=== PATIENT | female | born 1960 | race Hispanic/Latino ===

== ENCOUNTER 2024-04-02 16:32 | Emergency (ER) | payer OTHER ==
[~2024-04-02] VITALS: Ht 157.5 cm; Wt 61.2 kg
[~2024-04-02 16:32] MED LIST: AMOX-426 PO; ATOR40TA71 PO; CHOL125C7 PO; ESCI20TA38 PO; FAMO-136 PO; FOLI1 PO; HYDR25SU38 RC; METF-446 PO; OLME5TAB29 PO
[2024-04-02 17:21] LABS: BASOPHILS # (AUTO) 0.01 K/uL (0.00-0.20); BASOPHILS % (AUTO) 0.2 % (0.0-5.0); HEMATOCRIT 25.6 % (36-48); IMMATURE GRANULOCYTE ABSOLUTE 0.07 K/uL (0-1); LYMPHOCYTES # (AUTO) 0.8 K/uL (1.0-4.8); LYMPHOCYTES % (AUTO) 11.9 % (21.0-51.0); MEAN CORPUSCULAR HEMOGLOBIN 23.4 pg (27.0-33.0); MEAN CORPUSCULAR HGB CONC 30.5 g/dL (32.0-36.0); MEAN CORPUSCULAR VOLUME 76.9 fL (79-99); MONOCYTES # (AUTO) 0.1 K/uL (0.1-1.0); MONOCYTES % (AUTO) 2.1 % (3.0-13.0); NEUTROPHILS # (AUTO) 5.4 K/uL (1.8-7.7); NEUTROPHILS % (AUTO) 84.7 % (40.0-77.0); NUCLEATED RED BLOOD CELLS 0.5 % (0.0-0.19); PLATELET COUNT (AUTO) 403 K/uL (130-400); RED BLOOD CELL COUNT(AUTO) 3.33 MIL/uL (4.00-5.50); WHITE BLOOD COUNT (AUTO) 6.3 K/uL (4.8-10.8)
[2024-04-02 17:30] LABS: POTASSIUM 4.2 mmol/L (3.5-5.1)
[2024-04-02 17:34] LABS: ALBUMIN 3.9 g/dL (3.5-5.0); BILIRUBIN,TOTAL 0.2 mg/dL (0.2-1.0); TOTAL PROTEIN, SERUM 7.3 g/dL (6.0-8.3)
[2024-04-02] MEDS: 0.9%NACL 1000ML 1,000 ML IV ONE (19:34)
[2024-04-02 19:40] LABS: INR <= 0.93 (0.85-1.15); PROTHROMBIN TIME 10.5 SEC (9.6-11.6)
[2024-04-02 19:41] LABS: PARTIAL THROMBOPLASTIN TIME 22.7 SEC (26.3-35.5)
[2024-04-02 20:33] VITALS: BP 140/58; PULSE 59; RESP 20; O2SAT 100
[2024-04-02] MEDS ORDERED: HYDR25SU7 RC (21:11)
== END 2024-04-02 21:16 | disposition home or self-care (01) ==
LOC: EDH 16:32
DX: D64.9 Anemia, unspecified (principal); K64.9 Unspecified hemorrhoids; E11.9 Type 2 diabetes mellitus without complications; E78.00 Pure hypercholesterolemia, unspecified; I10 Essential (primary) hypertension; Z90.49 Acquired absence of other specified parts of digestive tract
CPT/HCPCS: 36415; 80053; 82270; 85025; 85610; 85730; 86850; 86900; 86901; 93005

== ENCOUNTER 2024-05-04 09:46 | Inpatient (IN) | payer OTHER ==
[~2024-05-04] VITALS: Ht 157.5 cm; Wt 59.9 kg
[2024-05-04] VITALS (8 sets, daily range): BP systolic 123–151; BP diastolic 67–91; PULSE 67–72; RESP 16–20; O2SAT 95–100
[~2024-05-04 09:46] MED LIST changes: +HYDR25SU7 RC
[2024-05-04 10:23] LABS: BASOPHILS # (AUTO) 0.09 K/uL (0.00-0.20); BASOPHILS % (AUTO) 1.2 % (0.0-5.0); EOSINOPHILS # (AUTO) 0.23 K/uL (0.00-0.70); HEMATOCRIT 26.4 % (36-48); IMMATURE GRANULOCYTE ABSOLUTE 0.17 K/uL (0-1); LYMPHOCYTES # (AUTO) 3.5 K/uL (1.0-4.8); LYMPHOCYTES % (AUTO) 45.6 % (21.0-51.0); MEAN CORPUSCULAR HEMOGLOBIN 24.2 pg (27.0-33.0); MEAN CORPUSCULAR HGB CONC 27.7 g/dL (32.0-36.0); MEAN CORPUSCULAR VOLUME 87.4 fL (79-99); MONOCYTES # (AUTO) 0.9 K/uL (0.1-1.0); MONOCYTES % (AUTO) 11.8 % (3.0-13.0); NEUTROPHILS # (AUTO) 2.8 K/uL (1.8-7.7); NEUTROPHILS % (AUTO) 36.2 % (40.0-77.0); NUCLEATED RED BLOOD CELLS 0.5 % (0.0-0.19); PLATELET COUNT (AUTO) 668 K/uL (130-400); RED BLOOD CELL COUNT(AUTO) 3.02 MIL/uL (4.00-5.50); RED CELL DISTRIBUTION WIDTH 21.6 % (11.0-15.5); WHITE BLOOD COUNT (AUTO) 7.6 K/uL (4.8-10.8)
[2024-05-04 10:31] LABS: CREATININE 0.7 mg/dL (0.5-1.0); POTASSIUM 4.2 mmol/L (3.5-5.1)
[2024-05-04 10:35] LABS: ALBUMIN 3.4 g/dL (3.5-5.0); BILIRUBIN,TOTAL 0.1 mg/dL (0.2-1.0); INR 0.98 (0.85-1.15); PARTIAL THROMBOPLASTIN TIME 24.3 SEC (26.3-35.5); PROTHROMBIN TIME 10.4 SEC (9.6-11.6); TOTAL PROTEIN, SERUM 6.6 g/dL (6.0-8.3)
[2024-05-04 13:57] LABS: RETICULOCYTE % (AUTO) 5.04 % (0.42-2.23)
[2024-05-04] MEDS: PANTOPRAZOLE 40 MG/VIAL IVP ONE (14:08)
[2024-05-04] MEDS: PANTOPRAZOLE 40MG INJ 80 MG in 0.9%NACL 100ML 100 ML IVP SCH (14:08)
[2024-05-04 14:34] LABS: HEMOGLOBIN A1C 5.3 % (4.0-6.0)
[2024-05-04 14:38] LABS: % IRON SATURATION 16.5 % (22-44)
[2024-05-04 14:47] LABS: THYROID STIMULATING HORMONE 2.92 uIU/mL (0.36-3.74)
[2024-05-04] MEDS ORDERED: GABA-529 PO (17:01)
[2024-05-04] MEDS ORDERED: ONDA-245 PO (17:03)
[2024-05-04] MEDS ORDERED: DOCU-116 PO (17:03)
[2024-05-04] MEDS ORDERED: SUCR1TAB2 PO (17:06)
[2024-05-04] MEDS ORDERED: FERR159T2 PO (17:08)
[2024-05-04] MEDS ORDERED: POTASSIUM CHLORIDE 10% ELIXIR 20 MEQ/15 ML UDCUP PO PRN (22:00)
[2024-05-04] MEDS ORDERED: POTASSIUM CHLORIDE 20MEQ/100ML 100 ML IV PRN (22:00)
[2024-05-04 22:31] LABS: HEMATOCRIT 28.9 % (36-48)
[2024-05-04] MEDS ORDERED: COMPOUND IV REFRIGERATED 1 EACH IVSOLN MISC PRN (23:45)
[2024-05-05] VITALS (20 sets, daily range): BP systolic 122–159; BP diastolic 38–82; PULSE 59–75; RESP 15–20; O2SAT 95–100
[2024-05-05 01:49] LABS: HEMATOCRIT 27.4 % (36-48)
[2024-05-05 04:39] LABS: CREATININE 0.6 mg/dL (0.5-1.0); POTASSIUM 3.4 mmol/L (3.5-5.1)
[2024-05-05] MEDS: SODIUM CL 4MEQ/ML 30ML 154 MEQ in DEXTROSE 10%-WATER 961.5 ML IV ONE (05:31)
[2024-05-05] MEDS: DEXTROSE 10%-WATER 1,000 ML IV ONE (05:53)
[2024-05-05] MEDS: (Escitalopram Oxalate 20 MG) PO SCH (09:00)
[2024-05-05] MEDS: LOSARTAN 25 MG TABLET PO SCH (09:00)
[2024-05-05] MEDS: ATORVASTATIN 40 MG TABLET PO SCH (09:00)
[2024-05-05] MEDS: HYDROCORTISONE 25 MG SUPPOSITORY PR SCH (17:32)
[2024-05-05] MEDS: ACETAMINOPHEN 500 MG TABLET PO PRN (20:48)
[2024-05-06] VITALS: BP 136/70; PULSE 79; RESP 18
[2024-05-06 03:26] LABS: BASOPHILS # (AUTO) 0.07 K/uL (0.00-0.20); BASOPHILS % (AUTO) 1.1 % (0.0-5.0); EOSINOPHILS # (AUTO) 0.16 K/uL (0.00-0.70); EOSINOPHILS % (AUTO) 2.5 % (0.0-8.0); HEMATOCRIT 30.9 % (36-48); IMMATURE GRANULOCYTE ABSOLUTE 0.07 K/uL (0-1); LYMPHOCYTES # (AUTO) 1.7 K/uL (1.0-4.8); LYMPHOCYTES % (AUTO) 26.8 % (21.0-51.0); MEAN CORPUSCULAR HEMOGLOBIN 24.8 pg (27.0-33.0); MEAN CORPUSCULAR HGB CONC 30.1 g/dL (32.0-36.0); MEAN CORPUSCULAR VOLUME 82.4 fL (79-99); MONOCYTES # (AUTO) 0.8 K/uL (0.1-1.0); MONOCYTES % (AUTO) 12.3 % (3.0-13.0); NEUTROPHILS # (AUTO) 3.6 K/uL (1.8-7.7); NEUTROPHILS % (AUTO) 56.2 % (40.0-77.0); PLATELET COUNT (AUTO) 601 K/uL (130-400); RED BLOOD CELL COUNT(AUTO) 3.75 MIL/uL (4.00-5.50); RED CELL DISTRIBUTION WIDTH 21.2 % (11.0-15.5); WHITE BLOOD COUNT (AUTO) 6.3 K/uL (4.8-10.8)
[2024-05-06 03:37] LABS: CREATININE 0.6 mg/dL (0.5-1.0); POTASSIUM 3.5 mmol/L (3.5-5.1)
[2024-05-06 03:58] VITALS: BP 138/72; PULSE 72; RESP 18
[2024-05-06] MEDS: KCL 20 MEQ ERTAB PO PRN (06:11)
[2024-05-06 07:00] VITALS: BP 130/70; PULSE 73; RESP 18
[2024-05-06] MEDS: PANTOPRAZOLE 40 MG TAB DR PO SCH (09:14)
[2024-05-06 11:00] VITALS: BP 144/73; PULSE 69; RESP 19
[2024-05-06] MEDS ORDERED: PANT40TA PO (11:48)
== END 2024-05-06 15:05 | disposition home or self-care (01) | DRG 392 ==
LOC: EDH 09:46 → INTOOBSV 13:32 → EDHIP 13:32 → OBSVTOIN 13:32 → 2AH 16:44
PROVIDERS: ADMIT Internal Medicine; ATTEND Internal Medicine
PROC: 30233N1 Transfusion of Nonautologous Red Blood Cells into Peripheral Vein, Percutaneous Approach (ICD-10-PCS; 2024-05-04)
PROC: 0DB68ZX Excision of Stomach, Via Natural or Artificial Opening Endoscopic, Diagnostic (ICD-10-PCS; principal; 2024-05-05)
DX: K29.70 Gastritis, unspecified, without bleeding (principal); D62 Acute posthemorrhagic anemia; D50.9 Iron deficiency anemia, unspecified; E11.9 Type 2 diabetes mellitus without complications; K21.9 Gastro-esophageal reflux disease without esophagitis; K59.00 Constipation, unspecified; K57.30 Diverticulosis of large intestine without perforation or abscess without bleeding; D75.839 Thrombocytosis, unspecified; K64.8 Other hemorrhoids; K25.9 Gastric ulcer, unspecified as acute or chronic, without hemorrhage or perforation; Z87.19 Personal history of other diseases of the digestive system
CPT/HCPCS: 36415; 36430; 43239; 80048; 80053; 82270; 82607; 82728; 82948; 83036; 83690; 84145; 84443; 84484; 85014; 85018; 85025; 85610; 85730; 86140; 86850; 86900; 86901; 86923; 93005; 96374; A4606; A6250; C9113; G0378; P9016; A4215; A4221; A4222; A4223; A4620; A4663

== ENCOUNTER 2024-06-18 09:44 | Inpatient (IN) | payer OTHER ==
[~2024-06-18] VITALS: Ht 154.9 cm; Wt 61.7 kg
[~2024-06-18 09:44] MED LIST changes: -AMOX-426 PO; +DOCU-116 PO; -FAMO-136 PO; +FERR159T2 PO; +GABA-529 PO; -HYDR25SU38 RC; -HYDR25SU7 RC; -METF-446 PO; +ONDA-245 PO; +PANT40TA PO; +SUCR1TAB2 PO
[2024-06-18 10:48] LABS: BASOPHILS # (AUTO) 0.07 K/uL (0.00-0.20); BASOPHILS % (AUTO) 0.9 % (0.0-5.0); EOSINOPHILS % (AUTO) 1.2 % (0.0-8.0); HEMATOCRIT 30.9 % (36-48); IMMATURE GRANULOCYTE ABSOLUTE 0.23 K/uL (0-1); LYMPHOCYTES # (AUTO) 2.6 K/uL (1.0-4.8); MEAN CORPUSCULAR HEMOGLOBIN 24.5 pg (27.0-33.0); MEAN CORPUSCULAR HGB CONC 30.1 g/dL (32.0-36.0); MEAN CORPUSCULAR VOLUME 81.5 fL (79-99); MONOCYTES # (AUTO) 0.7 K/uL (0.1-1.0); NEUTROPHILS # (AUTO) 4.5 K/uL (1.8-7.7); NEUTROPHILS % (AUTO) 55.1 % (40.0-77.0); PLATELET COUNT (AUTO) 637 K/uL (130-400); RED BLOOD CELL COUNT(AUTO) 3.79 MIL/uL (4.00-5.50); RED CELL DISTRIBUTION WIDTH 18.3 % (11.0-15.5); WHITE BLOOD COUNT (AUTO) 8.1 K/uL (4.8-10.8)
[2024-06-18 10:55] LABS: CREATININE 0.8 mg/dL (0.5-1.0); POTASSIUM 3.2 mmol/L (3.5-5.1)
[2024-06-18 11:07] LABS: INR 0.94 (0.85-1.15); PROTHROMBIN TIME 10.2 SEC (9.6-11.6)
[2024-06-18 11:09] LABS: PARTIAL THROMBOPLASTIN TIME 21.4 SEC (26.3-35.5)
[2024-06-18 12:56] LABS: HEMATOCRIT 26.9 % (36-48)
[2024-06-18 13:06] LABS: HEMOGLOBIN A1C 8.6 % (4.0-6.0)
[2024-06-18] MEDS: PANTOPRAZOLE 40 MG/VIAL IVP ONE (13:07)
[2024-06-18] MEDS: 0.9%NACL 1000ML 1,000 ML IV SCH (13:07)
[2024-06-18] MEDS: POTASSIUM CHLORIDE 20MEQ/100ML 100 ML IV PRN (13:08)
[2024-06-18 13:24] LABS: THYROID STIMULATING HORMONE 0.51 uIU/mL (0.36-3.74)
[2024-06-18 13:37] LABS: APPEARANCE,URINE CLEAR (CLEAR); BILIRUBIN,URINE NEGATIVE (NEGATIVE); COLOR,URINE YELLOW (YELLOW); GLUCOSE, URINE (UA) NEGATIVE (NEGATIVE); KETONES,URINE NEGATIVE (NEGATIVE); LEUKOCYTE ESTERASE ,URINE 25 Leu/uL (NEGATIVE); NITRATE,URINE NEGATIVE (NEGATIVE); OCCULT BLOOD,URINE MODERATE (NEGATIVE); PH,URINE 5.5 (5.0-8.0); PROTEIN,URINE 30 mg/dL (NEGATIVE); UROBILINOGEN,URINE 0.2 mg/dL (0.2-1.0)
[2024-06-18 13:51] LABS: ADD UA MICROSCOPIC YES
[2024-06-18 13:54] LABS: BACTERIA,URINE RARE /HPF (None Seen); MUCUS,URINE RARE LPF (None Seen); NON-SQUAMOUS EPITHELIAL CELL 1 /HPF (0-2); RBC,URINE 26-50 /HPF (0-1); SQUAMOUS EPITHELIAL CELL,UR RARE /HPF (0-2)
[2024-06-18] MEDS: LIDOCAINE HCL 1% 20 ML VIAL ONE (14:06)
[2024-06-18] MEDS: cefTRIAXone 1G VIAL IVPB SCH (14:10)
[2024-06-18] MEDS: PANTOPRAZOLE 40MG INJ 80 MG in 0.9%NACL 100ML 100 ML IVP SCH (14:13)
[2024-06-18] MEDS ORDERED: IOHEXOL-350 75 ML VIAL IV ONE (14:41)
[2024-06-18 18:15] VITALS: BP 128/58; PULSE 76; RESP 18
[2024-06-18 19:25] LABS: HEMATOCRIT 26.3 % (36-48)
[2024-06-18 20:00] VITALS: BP 116/61; PULSE 71; RESP 20
[2024-06-18 21:00] VITALS: O2SAT 100
[2024-06-18] MEDS ORDERED: PEG 3350/NA SULF,BICARB,CL/KCL 4000 ML SOLN PO SCH (23:20)
[2024-06-18 23:33] VITALS: BP 126/63; PULSE 71; RESP 20
[2024-06-19] VITALS (24 sets, daily range): BP systolic 102–144; BP diastolic 50–98; PULSE 65–106; RESP 13–20; O2SAT 94
[2024-06-19 01:09] LABS: HEMATOCRIT 24.4 % (36-48)
[2024-06-19] MEDS ORDERED: ATOR20TA65 PO (04:54)
[2024-06-19] MEDS ORDERED: ESCI20TA PO (04:54)
[2024-06-19] MEDS ORDERED: ERGO500093 PO (04:54)
[2024-06-19] MEDS ORDERED: METF-446 PO (04:54)
[2024-06-19] MEDS ORDERED: DAPA10TA PO (04:54)
[2024-06-19 06:28] LABS: BASOPHILS # (AUTO) 0.05 K/uL (0.00-0.20); BASOPHILS % (AUTO) 0.8 % (0.0-5.0); EOSINOPHILS % (AUTO) 1.5 % (0.0-8.0); HEMATOCRIT 23.5 % (36-48); IMMATURE GRANULOCYTE ABSOLUTE 0.14 K/uL (0-1); LYMPHOCYTES # (AUTO) 2.2 K/uL (1.0-4.8); LYMPHOCYTES % (AUTO) 32.6 % (21.0-51.0); MEAN CORPUSCULAR HEMOGLOBIN 24.6 pg (27.0-33.0); MEAN CORPUSCULAR HGB CONC 29.8 g/dL (32.0-36.0); MEAN CORPUSCULAR VOLUME 82.7 fL (79-99); MONOCYTES # (AUTO) 0.7 K/uL (0.1-1.0); MONOCYTES % (AUTO) 10.8 % (3.0-13.0); NEUTROPHILS # (AUTO) 3.5 K/uL (1.8-7.7); NEUTROPHILS % (AUTO) 52.2 % (40.0-77.0); PLATELET COUNT (AUTO) 462 K/uL (130-400); RED BLOOD CELL COUNT(AUTO) 2.84 MIL/uL (4.00-5.50); RED CELL DISTRIBUTION WIDTH 18.4 % (11.0-15.5); WHITE BLOOD COUNT (AUTO) 6.7 K/uL (4.8-10.8)
[2024-06-19 06:44] LABS: CREATININE 0.7 mg/dL (0.5-1.0); POTASSIUM 3.4 mmol/L (3.5-5.1)
[2024-06-19] MEDS ORDERED: NON-FORMULARY MEDICATION 1 EACH (Olmesartan Medoxomil 5 MG) PO SCH (09:00)
[2024-06-19] MEDS ORDERED: NON-FORMULARY MEDICATION 1 EACH (Escitalopram Oxalate (Lexapro) 20 MG) PO SCH (09:00)
[2024-06-19] MEDS: LIDOCAINE HCL 1% 20 ML VIAL INJ SCH (09:01)
[2024-06-19] MEDS ORDERED: COMPOUND IV REFRIGERATED 1 EACH IVSOLN MISC PRN (10:00)
[2024-06-19] MEDS ORDERED: PROPOFOL 10 MG/ML 20ML VIAL IV ONE (10:58)
[2024-06-19 13:23] LABS: HEMATOCRIT 24.6 % (36-48)
[2024-06-19] MEDS: LOSARTAN 25 MG TABLET PO SCH (14:28)
[2024-06-19] MEDS: citaLOPram 20 MG TABLET PO SCH (14:28)
[2024-06-19] MEDS: PEG 3350/NA SULF,BICARB,CL/KCL 4000 ML SOLN PO SCH (14:29)
[2024-06-19] MEDS: acetaMINOPHEN 500 MG TABLET PO PRN (17:07)
[2024-06-19] MEDS: SUCRALFATE 1 GM TABLET PO SCH (20:39)
[2024-06-19] MEDS: ATORVASTATIN 20 MG TABLET PO SCH (20:39)
[2024-06-19] MEDS: PANTOPRAZOLE 40 MG TAB DR PO SCH (20:39)
[2024-06-20] VITALS (17 sets, daily range): BP systolic 100–134; BP diastolic 44–68; PULSE 69–93; RESP 16–20; O2SAT 94
[2024-06-20 07:05] LABS: MEAN CORPUSCULAR HEMOGLOBIN 24.6 pg (27.0-33.0); MEAN CORPUSCULAR VOLUME 82.1 fL (79-99); RED BLOOD CELL COUNT(AUTO) 2.52 MIL/uL (4.00-5.50); RED CELL DISTRIBUTION WIDTH 18.3 % (11.0-15.5); WHITE BLOOD COUNT (AUTO) 5.1 K/uL (4.8-10.8)
[2024-06-20 07:12] LABS: CREATININE 0.7 mg/dL (0.5-1.0)
[2024-06-20 07:31] LABS: HEMATOCRIT 20.7 % (36-48)
[2024-06-20 07:36] LABS: POTASSIUM 2.7 mmol/L (3.5-5.1)
[2024-06-20] MEDS ORDERED: PROPOFOL 10 MG/ML 20ML VIAL IV ONE (08:09)
[2024-06-20 08:31] LABS: HEMATOCRIT 20.2 % (36-48)
[2024-06-21] VITALS (8 sets, daily range): BP systolic 115–130; BP diastolic 57–69; PULSE 68–81; RESP 16–18; O2SAT 98–100
[2024-06-21 03:32] LABS: BASOPHILS # (AUTO) 0.04 K/uL (0.00-0.20); BASOPHILS % (AUTO) 0.6 % (0.0-5.0); EOSINOPHILS # (AUTO) 0.13 K/uL (0.00-0.70); EOSINOPHILS % (AUTO) 1.8 % (0.0-8.0); HEMATOCRIT 28.5 % (36-48); IMMATURE GRANULOCYTE ABSOLUTE 0.18 K/uL (0-1); LYMPHOCYTES # (AUTO) 2.3 K/uL (1.0-4.8); LYMPHOCYTES % (AUTO) 32.6 % (21.0-51.0); MEAN CORPUSCULAR HEMOGLOBIN 25.4 pg (27.0-33.0); MEAN CORPUSCULAR HGB CONC 31.6 g/dL (32.0-36.0); MEAN CORPUSCULAR VOLUME 80.5 fL (79-99); MONOCYTES # (AUTO) 0.7 K/uL (0.1-1.0); MONOCYTES % (AUTO) 10.1 % (3.0-13.0); NEUTROPHILS # (AUTO) 3.7 K/uL (1.8-7.7); NEUTROPHILS % (AUTO) 52.3 % (40.0-77.0); NUCLEATED RED BLOOD CELLS 0.3 % (0.0-0.19); PLATELET COUNT (AUTO) 397 K/uL (130-400); RED BLOOD CELL COUNT(AUTO) 3.54 MIL/uL (4.00-5.50); RED CELL DISTRIBUTION WIDTH 17.4 % (11.0-15.5)
[2024-06-21 03:48] LABS: CREATININE 0.6 mg/dL (0.5-1.0); MAGNESIUM 1.5 mg/dL (1.80-2.40); PHOSPHORUS 2.9 mg/dL (2.5-4.9); POTASSIUM 3.5 mmol/L (3.5-5.1)
[2024-06-21 13:26] LABS: HEMATOCRIT 32.2 % (36-48); MEAN CORPUSCULAR HEMOGLOBIN 25.9 pg (27.0-33.0); MEAN CORPUSCULAR HGB CONC 32.3 g/dL (32.0-36.0); MEAN CORPUSCULAR VOLUME 80.3 fL (79-99); RED BLOOD CELL COUNT(AUTO) 4.01 MIL/uL (4.00-5.50); RED CELL DISTRIBUTION WIDTH 17.9 % (11.0-15.5); WHITE BLOOD COUNT (AUTO) 7.3 K/uL (4.8-10.8)
[2024-06-21] MEDS: KCL 20 MEQ ERTAB PO ONE (17:21)
[2024-06-21 21:21] LABS: HEMATOCRIT 28.8 % (36-48); MEAN CORPUSCULAR HEMOGLOBIN 25.9 pg (27.0-33.0); MEAN CORPUSCULAR HGB CONC 31.6 g/dL (32.0-36.0); MEAN CORPUSCULAR VOLUME 82.1 fL (79-99); NUCLEATED RED BLOOD CELLS 0.2 % (0.0-0.19); RED BLOOD CELL COUNT(AUTO) 3.51 MIL/uL (4.00-5.50); RED CELL DISTRIBUTION WIDTH 18.8 % (11.0-15.5); WHITE BLOOD COUNT (AUTO) 8.6 K/uL (4.8-10.8)
[2024-06-22] VITALS (7 sets, daily range): BP systolic 121–136; BP diastolic 60–71; PULSE 69–80; RESP 16–20; O2SAT 99–100
[2024-06-22 03:26] LABS: BASOPHILS # (AUTO) 0.05 K/uL (0.00-0.20); BASOPHILS % (AUTO) 0.7 % (0.0-5.0); EOSINOPHILS # (AUTO) 0.15 K/uL (0.00-0.70); HEMATOCRIT 27.8 % (36-48); IMMATURE GRANULOCYTE ABSOLUTE 0.29 K/uL (0-1); LYMPHOCYTES # (AUTO) 2.5 K/uL (1.0-4.8); LYMPHOCYTES % (AUTO) 34.1 % (21.0-51.0); MEAN CORPUSCULAR HEMOGLOBIN 25.4 pg (27.0-33.0); MEAN CORPUSCULAR HGB CONC 31.3 g/dL (32.0-36.0); MONOCYTES # (AUTO) 0.7 K/uL (0.1-1.0); MONOCYTES % (AUTO) 9.2 % (3.0-13.0); NEUTROPHILS # (AUTO) 3.7 K/uL (1.8-7.7); NEUTROPHILS % (AUTO) 50.1 % (40.0-77.0); PLATELET COUNT (AUTO) 369 K/uL (130-400); RED BLOOD CELL COUNT(AUTO) 3.43 MIL/uL (4.00-5.50); WHITE BLOOD COUNT (AUTO) 7.4 K/uL (4.8-10.8)
[2024-06-22 03:36] LABS: CREATININE 0.6 mg/dL (0.5-1.0); POTASSIUM 3.5 mmol/L (3.5-5.1)
[2024-06-22 13:20] LABS: HEMATOCRIT 28.1 % (36-48); MEAN CORPUSCULAR HEMOGLOBIN 25.9 pg (27.0-33.0); MEAN CORPUSCULAR HGB CONC 31.7 g/dL (32.0-36.0); MEAN CORPUSCULAR VOLUME 81.7 fL (79-99); RED BLOOD CELL COUNT(AUTO) 3.44 MIL/uL (4.00-5.50); RED CELL DISTRIBUTION WIDTH 18.2 % (11.0-15.5); WHITE BLOOD COUNT (AUTO) 7.2 K/uL (4.8-10.8)
[2024-06-22 22:46] LABS: MEAN CORPUSCULAR HEMOGLOBIN 25.5 pg (27.0-33.0); MEAN CORPUSCULAR HGB CONC 31.1 g/dL (32.0-36.0); MEAN CORPUSCULAR VOLUME 82.1 fL (79-99); RED BLOOD CELL COUNT(AUTO) 3.29 MIL/uL (4.00-5.50); RED CELL DISTRIBUTION WIDTH 18.3 % (11.0-15.5); WHITE BLOOD COUNT (AUTO) 7.7 K/uL (4.8-10.8)
[2024-06-23] VITALS (7 sets, daily range): BP systolic 103–141; BP diastolic 57–76; PULSE 70–80; RESP 17–19; O2SAT 93–95
[2024-06-23 04:18] LABS: BASOPHILS # (AUTO) 0.05 K/uL (0.00-0.20); BASOPHILS % (AUTO) 0.8 % (0.0-5.0); EOSINOPHILS # (AUTO) 0.18 K/uL (0.00-0.70); EOSINOPHILS % (AUTO) 2.9 % (0.0-8.0); HEMATOCRIT 25.6 % (36-48); IMMATURE GRANULOCYTE ABSOLUTE 0.25 K/uL (0-1); LYMPHOCYTES % (AUTO) 31.9 % (21.0-51.0); MEAN CORPUSCULAR HGB CONC 31.3 g/dL (32.0-36.0); MEAN CORPUSCULAR VOLUME 83.1 fL (79-99); MONOCYTES # (AUTO) 0.6 K/uL (0.1-1.0); MONOCYTES % (AUTO) 9.6 % (3.0-13.0); NEUTROPHILS # (AUTO) 3.1 K/uL (1.8-7.7); NEUTROPHILS % (AUTO) 50.7 % (40.0-77.0); PLATELET COUNT (AUTO) 356 K/uL (130-400); RED BLOOD CELL COUNT(AUTO) 3.08 MIL/uL (4.00-5.50); RED CELL DISTRIBUTION WIDTH 18.2 % (11.0-15.5); WHITE BLOOD COUNT (AUTO) 6.1 K/uL (4.8-10.8)
[2024-06-23 04:33] LABS: ALBUMIN 2.3 g/dL (3.5-5.0); BILIRUBIN,TOTAL 0.2 mg/dL (0.2-1.0); CREATININE 0.6 mg/dL (0.5-1.0); MAGNESIUM 1.5 mg/dL (1.80-2.40); POTASSIUM 3.9 mmol/L (3.5-5.1); TOTAL PROTEIN, SERUM 5.4 g/dL (6.0-8.3)
[2024-06-23] MEDS: MAGNESIUM 2GM PREMIX 50ML 50 ML IV SCH (05:28)
[2024-06-23 12:58] LABS: HEMATOCRIT 27.9 % (36-48); MEAN CORPUSCULAR HEMOGLOBIN 25.9 pg (27.0-33.0); MEAN CORPUSCULAR HGB CONC 30.8 g/dL (32.0-36.0); RED BLOOD CELL COUNT(AUTO) 3.32 MIL/uL (4.00-5.50); RED CELL DISTRIBUTION WIDTH 18.6 % (11.0-15.5)
[2024-06-24] VITALS (7 sets, daily range): BP systolic 91–110; BP diastolic 47–66; PULSE 68–81; RESP 16–18; O2SAT 98
[2024-06-24 03:42] LABS: HEMATOCRIT 25.1 % (36-48); MEAN CORPUSCULAR HEMOGLOBIN 26.1 pg (27.0-33.0); MEAN CORPUSCULAR HGB CONC 31.9 g/dL (32.0-36.0); MEAN CORPUSCULAR VOLUME 81.8 fL (79-99); RED BLOOD CELL COUNT(AUTO) 3.07 MIL/uL (4.00-5.50); RED CELL DISTRIBUTION WIDTH 18.3 % (11.0-15.5); WHITE BLOOD COUNT (AUTO) 6.3 K/uL (4.8-10.8)
[2024-06-24 03:59] LABS: ALBUMIN 2.6 g/dL (3.5-5.0); BILIRUBIN,TOTAL 0.3 mg/dL (0.2-1.0); CREATININE 0.6 mg/dL (0.5-1.0); MAGNESIUM 1.7 mg/dL (1.80-2.40); POTASSIUM 3.7 mmol/L (3.5-5.1); TOTAL PROTEIN, SERUM 5.8 g/dL (6.0-8.3)
[2024-06-24] MEDS ORDERED: MAGNESIUM 2GM PREMIX 50ML 50 ML IV SCH (14:00)
[2024-06-24] MEDS: MAGNESIUM 2GM PREMIX 50ML 50 ML IV SCH (14:49)
[2024-06-25] VITALS (9 sets, daily range): BP systolic 95–138; BP diastolic 47–69; PULSE 72–85; RESP 16–18; O2SAT 96–100
[2024-06-25 03:43] LABS: HEMATOCRIT 24.2 % (36-48); MEAN CORPUSCULAR HEMOGLOBIN 25.8 pg (27.0-33.0); MEAN CORPUSCULAR HGB CONC 31.4 g/dL (32.0-36.0); RED BLOOD CELL COUNT(AUTO) 2.95 MIL/uL (4.00-5.50); RED CELL DISTRIBUTION WIDTH 17.8 % (11.0-15.5); WHITE BLOOD COUNT (AUTO) 5.7 K/uL (4.8-10.8)
[2024-06-25 03:59] LABS: ALBUMIN 2.4 g/dL (3.5-5.0); BILIRUBIN,TOTAL 0.2 mg/dL (0.2-1.0); CREATININE 0.6 mg/dL (0.5-1.0); MAGNESIUM 1.9 mg/dL (1.80-2.40); POTASSIUM 3.1 mmol/L (3.5-5.1); TOTAL PROTEIN, SERUM 5.6 g/dL (6.0-8.3)
[2024-06-25] MEDS ORDERED: POTASSIUM CHLORIDE 10% ELIXIR 20 MEQ/15 ML UDCUP PO PRN (07:00)
[2024-06-25] MEDS: KCL 20 MEQ ERTAB PO PRN (08:15)
[2024-06-25] MEDS: POTASSIUM CHLORIDE 20MEQ/100ML 100 ML IV ONE (11:10)
[2024-06-26] VITALS (7 sets, daily range): BP systolic 114–133; BP diastolic 59–71; PULSE 69–81; RESP 16–20; TEMP 100.2; O2SAT 100
[2024-06-26 03:45] LABS: HEMATOCRIT 28.8 % (36-48); MEAN CORPUSCULAR HEMOGLOBIN 27.2 pg (27.0-33.0); MEAN CORPUSCULAR HGB CONC 32.6 g/dL (32.0-36.0); MEAN CORPUSCULAR VOLUME 83.5 fL (79-99); RED BLOOD CELL COUNT(AUTO) 3.45 MIL/uL (4.00-5.50); RED CELL DISTRIBUTION WIDTH 17.2 % (11.0-15.5); WHITE BLOOD COUNT (AUTO) 5.6 K/uL (4.8-10.8)
[2024-06-26 03:54] LABS: ALBUMIN 2.4 g/dL (3.5-5.0); BILIRUBIN,TOTAL 0.2 mg/dL (0.2-1.0); CREATININE 0.6 mg/dL (0.5-1.0); MAGNESIUM 1.5 mg/dL (1.80-2.40); POTASSIUM 3.4 mmol/L (3.5-5.1); TOTAL PROTEIN, SERUM 5.5 g/dL (6.0-8.3)
[2024-06-26] MEDS: POTASSIUM CHLORIDE 20MEQ/100ML 100 ML IV ONE (08:51)
[2024-06-27 03:47] VITALS: BP 150/67; PULSE 66; RESP 21
[2024-06-27 03:57] LABS: HEMATOCRIT 32.4 % (36-48); MEAN CORPUSCULAR HEMOGLOBIN 26.9 pg (27.0-33.0); MEAN CORPUSCULAR HGB CONC 32.1 g/dL (32.0-36.0); MEAN CORPUSCULAR VOLUME 83.9 fL (79-99); RED BLOOD CELL COUNT(AUTO) 3.86 MIL/uL (4.00-5.50); RED CELL DISTRIBUTION WIDTH 17.1 % (11.0-15.5); WHITE BLOOD COUNT (AUTO) 5.3 K/uL (4.8-10.8)
[2024-06-27 04:13] LABS: ALBUMIN 2.8 g/dL (3.5-5.0); BILIRUBIN,TOTAL 0.4 mg/dL (0.2-1.0); CREATININE 0.5 mg/dL (0.5-1.0); MAGNESIUM 1.5 mg/dL (1.80-2.40); POTASSIUM 3.7 mmol/L (3.5-5.1); TOTAL PROTEIN, SERUM 6.3 g/dL (6.0-8.3)
[2024-06-27] MEDS: MAGNESIUM 2GM PREMIX 50ML 50 ML IV SCH (05:04)
[2024-06-27 07:31] VITALS: BP 127/65; PULSE 66; RESP 18
[2024-06-27 07:47] VITALS: O2SAT 100
[2024-06-27] MEDS ORDERED: MAGNESIUM 2GM PREMIX 50ML 50 ML IV SCH (08:30)
[2024-06-27 11:37] VITALS: BP 110/62; PULSE 76; RESP 18
[2024-06-27] MEDS ORDERED: CEFD300C3 PO (12:11)
[2024-06-27] MEDS ORDERED: SUCR1TAB28 PO (12:56)
== END 2024-06-27 13:01 | disposition home or self-care (01) | DRG 378 ==
LOC: EDH 09:44 → EDHIP 12:24 → 2AH 16:40
PROVIDERS: ADMIT Internal Medicine; ATTEND Internal Medicine
PROC: 0DB78ZX Excision of Stomach, Pylorus, Via Natural or Artificial Opening Endoscopic, Diagnostic (ICD-10-PCS; 2024-06-19)
PROC: 30233N1 Transfusion of Nonautologous Red Blood Cells into Peripheral Vein, Percutaneous Approach (ICD-10-PCS; principal; 2024-06-20)
PROC: 0DJD8ZZ Inspection of Lower Intestinal Tract, Via Natural or Artificial Opening Endoscopic (ICD-10-PCS; 2024-06-20)
DX: K25.0 Acute gastric ulcer with hemorrhage (principal); D62 Acute posthemorrhagic anemia; K29.70 Gastritis, unspecified, without bleeding; K64.9 Unspecified hemorrhoids; E11.9 Type 2 diabetes mellitus without complications; E78.00 Pure hypercholesterolemia, unspecified; I10 Essential (primary) hypertension; K57.30 Diverticulosis of large intestine without perforation or abscess without bleeding; D50.9 Iron deficiency anemia, unspecified; K21.9 Gastro-esophageal reflux disease without esophagitis; D75.839 Thrombocytosis, unspecified; K64.8 Other hemorrhoids; Z90.710 Acquired absence of both cervix and uterus; Z87.19 Personal history of other diseases of the digestive system; Z87.11 Personal history of peptic ulcer disease
CPT/HCPCS: 36415; 36430; 43239; 45378; 74177; 78278; 80048; 80053; 81001; 82270; 82948; 83036; 83735; 84100; 84145; 84443; 85014; 85018; 85025; 85027; 85610; 85730; 86140; 86850; 86900; 86901; 86923; 87086; 88305; 88312; 96374; 96375; A4606; A6250; A9512; G0378; J0696; J2470; J2704; J3475; J3480; J7030; P9016; Q9967; A4215; A4222; A4223; A4620; A7002; J3490

== ENCOUNTER 2025-08-24 10:49 | Inpatient (IN) | payer MEDICARE, OTHER ==
[~2025-08-24] VITALS: Ht 152.4 cm; Wt 74.3 kg
[2025-08-24] VITALS (7 sets, daily range): BP systolic 115–126; BP diastolic 52–84; PULSE 69–83; RESP 14–20; TEMP 97.9; O2SAT 97–99
[~2025-08-24 10:49] MED LIST changes: +ATOR20TA65 PO; +CEFD300C3 PO; +DAPA10TA PO; +ERGO500093 PO; +ESCI20TA PO; +METF-446 PO; +SUCR1TAB28 PO
--- NOTE | 2025-08-24 10:52 | ERN ---
General Chief Complaint: Chest Pain Stated Complaint: CP Time Seen by MD: 10:49 Source: patient, EMS History of Present Illness Initial Comments Patient is a 65-year-old female coming in complaining of chest pressure chest discomfort. Per patient this sensation began four days ago. Patient has a history of hypertension and diabetes. No cardiac history in the past. Allergies: Coded Allergies: No Known Drug Allergies (Verified Allergy, Unknown, 06/18/24) Home Meds Active Scripts Sucralfate (Carafate) 1 Gram Tablet, 1 GM PO TID for 14 Days, #42 TAB 1 Refill Prov:SHIVANI ALVAREZ MD 06/27/24 Cefdinir (Cefdinir) 300 Mg Capsule, 300 MG PO BID for 5 Days, #10 CAP 0 Refills Prov:SHIVANI ALVAREZ MD 06/27/24 Pantoprazole Sodium (Protonix) 40 Mg Tablet.dr, 40 MG PO DAILY, #90 TAB Prov:IAIN JOSEPH PAC 05/06/24 Reported Medications Ergocalciferol (Vitamin D2) (Vitamin D2) 1,250 Mcg (44677 Unit) Capsule, 1250 MCG PO QWEEK, CAP 06/19/24 Atorvastatin Calcium (Atorvastatin Calcium) 20 Mg Tablet, 20 MG PO HS, TAB 06/19/24 Metformin HCl (Metformin HCl) 1,000 Mg Tablet, 1000 MG PO BID, TAB 06/19/24 Dapagliflozin Propanediol (Farxiga) 10 Mg Tablet, 10 MG PO DAILY, TAB 06/19/24 Escitalopram Oxalate (Lexapro) 20 Mg Tablet, 20 MG PO DAILY, TAB 06/19/24 Ferrous Sulfate, Dried (Iron) 159 Mg (45 Mg Iron) Tablet.er, 60 MG PO BID, TAB 05/04/24 Sucralfate (Sucralfate) 1 Gram Tablet, 1 GM PO TIDAC, TAB 05/04/24 Ondansetron (Ondansetron Odt) 8 Mg Tab.rapdis, 8 MG PO DAILY PRN for NAUSEA, TAB 05/04/24 Docusate Sodium (Colace) 100 Mg Capsule, 100 MG PO DAILY, CAP 05/04/24 Gabapentin (Gabapentin) 100 Mg Capsule, 100 MG PO HS, CAP 05/04/24 Olmesartan Medoxomil (Olmesartan Medoxomil) 5 Mg Tablet, 5 MG PO DAILY, TAB 03/17/24 Atorvastatin Calcium (Atorvastatin Calcium) 40 Mg Tablet, 40 MG PO DAILY, TAB 03/17/24 Escitalopram Oxalate (Escitalopram Oxalate) 20 Mg Tablet, 20 MG PO DAILY, TAB 03/17/24 Folic Acid (Folvite) 1 Mg Tab, 1 MG PO DAILY, TAB 03/17/24 Cholecalciferol (Vitamin D3) (D3-5000) 125 Mcg (5000 Unit) Capsule, 125 MCG PO DAILY, CAP 03/17/24 Past Medical History Past Medical History: Diabetes-Type II, Diverticulitis, High Cholesterol, Hypertension, Other Past Surgical History: Hysterectomy, Cholecystectomy, Other Surgical History Other: R SHOULDER ROTATOR CUFF. Female( History) History: Not Applicable ROS Dictation CONSTITUTIONAL: No chills, no fever, no weakness, no diaphoresis, no malaise. HEAD/FACE: No signs of trauma. EENT: No eye pain, no blurred vision, no tearing, no double vision, no ear pain, no ear discharge, no nose pain, no nasal congestion, no throat pain, no throat swelling, no mouth pain. RESPIRATORY: No cough, no orthopnea, no SOB, no stridor, no wheezing. CARDIOVASCULAR: No chest pain, no edema, no palpitations, no syncope. GASTROINTESTINAL/ABDOMINAL: No abdominal pain, no constipation, no diarrhea, no nausea, no vomiting. GENITOURINARY: No abnormal discharge, no dysuria, no frequent urination, no hematuria. No complaints of pain in the genitals. MUSCULOSKELETAL: No back pain, no gout, no joint pain, no joint swelling, no muscle pain, no muscle stiffness, no neck pain. INTEGUMENTARY: No change in color, no change in hair/nails, no dryness, no lesion, no lumps, no rash. NEUROLOGICAL/PSYCH: No anxiety, not depressed, no emotional problem, no headache, no numbness, no pre-existing deficit, no history of seizures, no tremors, no weakness. HEMATOLOGIC/LYMPHATIC: Not anemic, no history of blood clots, no apparent bleeding, no bruising, glands not swollen. All Systems Negative, Except as Noted. Physical Exam Physical Exam Dictation VITAL SIGNS: Reviewed. GENERAL APPEARANCE: Alert, oriented x3, no acute distress, obese. HEAD AND FACE: Non-traumatic. EYES: PERRL, pink conjunctivas, eyelid no trauma, anterior chamber clear. EARS: Pinnas intact and no signs of trauma or erythema. Ear canals clear and no discharge. TMs no erythema. NOSE: No discharge, no bleeding. OROPHARYNX: Mouth normal, teeth no caries, tongue pink. Pharynx clear, no erythema. Tonsils no exudates, no abscesses noted. Mucous membrane moist. NECK: Supple, non-tender, no thyromegaly, no masses, no JVD, no bruits. BREAST: Deferred. CHEST: No tenderness, no crepitus, no paradoxical movement, no retractions. LUNGS: Clear, well-ventilated, symmetric, no rales, no wheezing, no rhonchi, no stridor, good breath sounds bilaterally. HEART: Regular rate, regular rhythm, no murmur, no gallops. VASCULAR: No peripheral edema. ABDOMEN: Soft, positive bowel sounds, nondistended, no guarding, nontender, no rebound, no masses no hepatomegaly, no splenomegaly, no Broussard's sign, no h ernias. RECTAL: Deferred. GENITAL: Deferred. NEUROLOGICAL: Normal speech, gross motor function intact, gross sensory functi on intact. MUSCULOSKELETAL: Neck nontender, full range of motion, back nontender, full range of motion. EXTREMITIES: Nontender, full range of motion. SKIN: Color pink, dry, no turgor, no rash, no lacerations, no abrasions, no contusions. LYMPHATICS: Deferred. Results Laboratory and Microbiology Lab and Micro Result Laboratory Tests Test 08/24/25 10:57 08/24/25 12:26 White Blood Count 5.9 K/uL (4.8-10.8) Red Blood Count 4.11 MIL/uL (4.00-5.50) Hemoglobin 7.4 g/dL (12.0-16.0) L Hematocrit 27.3 % (36-48) L Mean Corpuscular Volume 66.4 fL (79-99) L Mean Corpuscular Hemoglobin 18.0 pg (27.0-33.0) L Mean Corpuscular Hemoglobin Concent 27.1 g/dL (32.0-36.0) L Red Cell Distribution Width 20.6 % (11.0-15.5) H Platelet Count 760 K/uL (130-400) *H Mean Platelet Volume 8.5 fL (7.5-10.5) Immature Granulocyte % (Auto) 0.3 % (0-1) Neutrophils (%) (Auto) 51.9 % (40.0-77.0) Lymphocytes (%) (Auto) 33.4 % (21.0-51.0) Monocytes (%) (Auto) 10.3 % (3.0-13.0) Eosinophils (%) (Auto) 2.9 % (0.0-8.0) Basophils (%) (Auto) 1.2 % (0.0-5.0) Neutrophils # (Auto) 3.1 K/uL (1.8-7.7) Lymphocytes # (Auto) 2.0 K/uL (1.0-4.8) Monocytes # (Auto) 0.6 K/uL (0.1-1.0) Eosinophils # (Auto) 0.17 K/uL (0.00-0.70) Basophils # (Auto) 0.07 K/uL (0.00-0.20) Absolute Immature Granulocyte (auto 0.02 K/uL (0-1) Nucleated Red Blood Cells 0.0 % (0.0-0.19) Sodium Level 138 mmol/L (136-145) Potassium Level 2.9 mmol/L (3.5-5.1) *L Chloride Level 101 mmol/L (101-111) Carbon Dioxide Level 19 mmol/L (21-32) L Blood Urea Nitrogen 17 mg/dL (7-18) Creatinine 2.6 mg/dL (0.5-1.0) H Glomerular Filtration Rate Calc 20 mL/min (>90) Random Glucose 179 mg/dL (70-105) H Total Calcium 9.0 mg/dL (8.5-10.1) Magnesium Level 1.80 mg/dL (1.80-2.40) 1.80 mg/dL (1.80-2.40) Total Creatine Kinase 108 U/L (21-232) Troponin I High Sensitivity 11 ng/L (4-50) Labs Reviewed?: Yes EKG/XRAY/US/CT/MRI EKG Comment 08/24/2025 time 10:45 a.m. Ventricular rate 92 Sinus rhythm OR [address] wave elevation or depression MDM MDM: Differential diagnosis: CARY, dehydration, hypokalemia, anemia Rationale: Tests considered and ordered secondary to shared decision making include: Previous outside records reviewed: Old ER visits. Risk of complication and/or morbidity or mortality of patient management: None Medications-Per medication reconciliation Need for hospitalization: Patient does meet criteria for hospitalization. Need for emergency major/minor surgery: No There are no social concerns with this patient. Prescription drug management Prescriptions will include symptomatic care Patient's prior external medical records from other ER visits were reviewed by me as indicated. Prior testing and results from previous visits were reviewed. Prior tests were taken into account with medical decision making and resource utilization, independent historian/historians were used to obtain complete medical history. I independently interpreted the test that were performed, results were reviewed by me and considered findings on radiology if ordered. Medical management and examination interpretation discussions were had by me with other qualified healthcare professionals as indicated for the patient's care. Patient is a 65-year-old female coming in with a mild chest discomfort chest pressure cardiac workup within normal limits. Hypokalemia potassium was replaced, CARY patient started IV hydration in the ER we will be admitted under the care of hospitalist group for ongoing management. ED Course Orders Procedure Category Date Status Time Cbc With Differential LAB 08/24/25 In Process 10:50 Chest 1vw RAD 08/24/25 Resulted 10:50 12 Lead Ekg Tracing- EKG 08/24/25 Complete Technical 10:50 Magnesium LAB 08/24/25 Complete 10:50 Creatine Kinase, Total LAB 08/24/25 Complete 10:50 Troponin I High LAB 08/24/25 Complete Sensitivity 10:50 Urinalysis Profile LAB 08/24/25 Logged 10:50 Basic Metabolic Panel LAB 08/24/25 Complete 10:50 0.9%Nacl 1000ml (Ns PHA 08/24/25 Complete 1000ml) 12:00 Magnesium LAB 08/24/25 Complete 12:16 Arterial Blood Gas + RT 08/24/25 Transmitted 13:06 Current Medications Medications (Trade) Dose Ordered Sig/Sylvester Route PRN Reason Start Time Stop Time Status Last Admin Dose Admin Sodium Chloride 1,000 ml @ 0 mls/hr ONCE ONCE IV 08/24/25 12:00 08/24/25 12:01 DC 08/24/25 12:29 Vital Signs Date Time Temp Pulse Resp B/P (MAP) Pulse Ox O2 Delivery O2 Flow Rate FiO2 08/24/25 11:43 98.2 86 16 83/53 96 Room Air* 0 21 08/24/25 10:50 98.1 94 14 109/54 98 Room Air 0 DX & DISP Disposition: Inpatient Decision to Admit Time: 13:09 Departure Impression: Primary Impression: Anemia Additional Impressions: Hypokalemia, Dehydration, CARY (acute kidney injury) Condition: Stable Referrals: LESVIA ROLDAN MD (PCP) KAREN SANCHEZ MD Aug 24, 2025 10:52
--- NOTE | 2025-08-24 11:02 | EKG ---
[facility] Test Date: 2025-08-24 Test Time: 10:45:05 Pat Name: RORY GARCIA Department: [facility] Room: ED Gender: F Wellness Coach: [id number] : 1960 Requested By: KAREN SANCHEZ Order Number: [id number] Reading MD: Briseida Chase Measurements Intervals [place] Rate: 92 P: 44 HI: 146 QRS: -14 QRSD: 84 T: 27 QT: 446 QTc: 552 Interpretive Statements Sinus rhythm Atrial premature complex Prolonged QT interval Compared to ECG 05/04/2024 13:41:40 Atrial premature complex(es) now present Prolonged QT interval now present Electronically Signed On 08-24-2025 16:39:38 CDT by Briseida Chase Please click the below link to view image of tracing.
[2025-08-24 11:19] LABS: CREATINE KINASE, TOTAL 108.0 U/L (21-232); CREATININE 2.6 mg/dL (0.5-1.0); GLOMERULAR FILTR. RATE CALC 20.0 mL/min (>90); GLUCOSE,RANDOM 179.0 mg/dL (70-105); SODIUM SERUM 138.0 mmol/L (136-145); UREA NITROGEN, BLOOD 17.0 mg/dL (7-18)
[2025-08-24 11:23] LABS: IMMATURE GRANULOCYTE ABSOLUTE 0.02 K/uL (0-1); NUCLEATED RED BLOOD CELLS 0.0 % (0.0-0.19); RED BLOOD CELL COUNT(AUTO) 4.11 MIL/uL (4.00-5.50); RED CELL DISTRIBUTION WIDTH 20.6 % (11.0-15.5); WHITE BLOOD COUNT (AUTO) 5.9 K/uL (4.8-10.8)
[2025-08-24 11:30] LABS: PLATELET COUNT (AUTO) 760 K/uL (130-400)
[2025-08-24] MEDS: 0.9%NACL 1000ML 1,000 ML IV ONE (12:29)
--- NOTE | 2025-08-24 12:57 | HMCIMG ---
EXAM: CR Chest, 1 View. CLINICAL HISTORY: cp COMPARISON: None provided. FINDINGS: LUNGS: There is no mass, infiltrate, or acute pulmonary abnormality. PLEURAL SPACES: No evidence of pleural effusion or pneumothorax. MEDIASTINUM: The cardiomediastinal silhouette is within normal limits. BONES: No aggressive appearing osseous lesion seen. IMPRESSION: No acute cardiopulmonary pathology is evident. /[place]
[2025-08-24 13:15] LABS: PLATELET MORPHOLOGY COMMENT INCREASED
[2025-08-24 13:26] LABS: ABG BASE EXCESS -8.5 mmol/L (-2.0-3.0); ABG HCO3 15.6 mmol/L (21.0-28.0); ABG OXYGEN SATURATION 96.4 % (94.0-98.0); ABG PCO2 27 mmHg (32-45); ABG PH 7.382 (7.350-7.450); CARBON MONOXIDE 0.8 % (0.5-1.5); DEVICE COMMENT RB; PO2, ARTERIAL BG 94.2 mmHg (83.0-108.0); TEMPERATURE, CELSIUS BG 37.0 CELSIUS (35.5-37.0); VENT MODE, BG RA (ROOM AIR)
[2025-08-24] MEDS ORDERED: 0.9%NACL 1000ML 1,000 ML IV SCH ×2 (13:30→14:00)
[2025-08-24 13:57] LABS: ASPARTATE AMINOTRANSFERASE 23.0 U/L (10-37); TOTAL PROTEIN, SERUM 6.9 g/dL (6.0-8.3)
[2025-08-24 13:57] LABS: APPEARANCE,URINE CLOUDY (CLEAR); GLUCOSE, URINE (UA) NEGATIVE (NEGATIVE); LEUKOCYTE ESTERASE ,URINE 75 Leu/uL (NEGATIVE); NITRATE,URINE NEGATIVE (NEGATIVE); OCCULT BLOOD,URINE MODERATE (NEGATIVE)
[2025-08-24 13:59] LABS: ADD UA MICROSCOPIC YES
[2025-08-24] MEDS: 0.9%NACL 1000ML 1,000 ML IV SCH (13:59)
[2025-08-24] MEDS: THIAMINE HCL 100 MG/ML 2ML VIAL IVP SCH (13:59)
[2025-08-24 14:00] LABS: INR 1.04 (0.85-1.15)
[2025-08-24] MEDS ORDERED: DEXTROSE 5 %-0.45 % NACL 1,000 ML IV SCH (14:00)
[2025-08-24] MEDS: PoTASSium chloRIDE 20MEQ ER 20 MEQ ERTAB PO PRN (14:00)
[2025-08-24 14:01] LABS: SQUAMOUS EPITHELIAL CELL,UR FEW /HPF (0-2)
--- NOTE | 2025-08-24 14:03 | NUR ---
DKA PROTOCOL NOT TO BE INITIATED UNTIL K IS ABOVE [address] STACY
[2025-08-24 14:13] LABS: % IRON SATURATION 2.8 % (22-44); IRON, SERUM 13.0 mcg/dL (50-170)
[2025-08-24 14:19] LABS: LACTATE DEHYDROGENASE 241.0 U/L (81-234)
--- NOTE | 2025-08-24 14:26 | HMCIMG ---
CT OF THE BRAIN WITHOUT CONTRAST CLINICAL INDICATION: Weakness for 1 day TECHNIQUE: Multiple contiguous axial CT images were obtained through the brain without the administration of intravenous contrast. Coronal and sagittal reconstructions were also obtained. COMPARISON: None available FINDINGS: The ventricular system and cortical sulci demonstrate a normal size and configuration for the patients age. There is patchy hypoattenuation of the periventricular matter bilaterally consistent with microangiopathic ischemic disease. There are no extra-axial collections, mass effect, or midline shift. The basal cisterns are patent. The pimentel-white matter differentiation is preserved. The midline structures and cervicomedullary junction are unremarkable. There is no evidence of acute intracranial hemorrhage or areas of acute territorial infarction. Vascular calcification is present. The calvarium is unremarkable in appearance. No suspicious lytic or sclerotic osseous lesions are seen. The visualized portions of the sinuses are well aerated. The mastoid air cells are well pneumatized and well aerated. The visualized orbital structures are unremarkable. IMPRESSION: 1. No CT evidence of an acute intracranial process. 2. 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 /[place]
--- NOTE | 2025-08-24 14:41 | HP ---
[facility] HISTORY AND PHYSICAL Date of Service: Aug 24, 2025 Time of Service: 14:29 HISTORY OF PRESENT ILLNESS: Date of service: 08/24/2025 This is a 65-year-old female with underlying history of chronic anemia, history of iron deficiency, prior history of GI bleed, hemorrhoids, hypertension, type 2 diabetes mellitus maintained on outpatient treatment with SGLT2 inhibitor with Farxiga, history of gastric ulcer who presented to the ER for further evaluation of dizziness, generalized weakness, poor oral intake with nausea and vomiting. Symptoms have been ongoing since yesterday. Son reports that patient was recently diagnosed with urinary tract infection and was started on outpatient treated with oral Bactrim. She has been holding Farxiga for last 2-3 days due to UTI. She has been having poor oral intake, some suprapubic discomfort. Today, she was having shortness of breath with exertion and tachypnea, she was feeling dizzy and felt lightheaded. Symptoms have been nonresolving prompting her to come to the ER for further evaluation. Patient previously has been hospitalized in [facility] when she had hematochezia. She reports having previous history of blood transfusion as well. She had a upper endoscopy in in 06/2024 which showed nonbleeding gastric ulcer. Patient also has a history of hemorrhoids. She denies having hematemesis, hematochezia or melena. Son has noticed that patient was having some blood in the urine with her recent UTI. She is currently not taking iron supplementation. Patient denies any previous history of chronic kidney disease. She has been a diabetic for about one year and has been on Farxiga chronically. On presentation, patient was noted to be afebrile with T-max of 98.1 F, heart rate of 94, blood pressure 109/54. Labs on presentation showed WBC count of 5900, hemoglobin 7.4, MCV of 66.4, platelet count of 424640. BMP showed sodium of 138, potassium 2.9, bicarb is 19, BUN of 17 , creatinine 2.6, blood ketone of 1.5, blood glucose of 179. X-ray showed no acute infiltrates. ABG showed pH of 7.38, pCO2 of 27, bicarb of 15, lactic acid of one. Patient will be admitted for further management of suspected euglycemic diabetic ketoacidosis, acute on chronic anemia, nonresolving UTI, dehydration, acute kidney injury. Patient will be admitted to ICU. Once potassium is corrected, we will start patient on insulin infusion. REVIEW OF SYSTEMS CONSTITUTIONAL: poor oral intake, malaise, fatigue NEUROLOGICAL: Denies headache, amaurosis fugax, motor weakness, sensory deficit, vertigo/spinning sensation, gait abnormalities, or tremors. ENT: No hearing loss, otalgia, otorrhea, rhinitis, rhinorrhea, hoarseness, or sore throat. CARDIOVASCULAR: Denies any exertional angina, dyspnea on exertion, orthopnea, paroxysmal nocturnal dyspnea, palpitations, life-threatening arrhythmias, claudication. PULMONARY: Denies any shortness of breath, cough, phlegm/sputum, hemoptysis, pleuritic chest pain. SLEEP: Denies morning headaches, daytime somnolence or napping. Denies diffic ulty falling asleep, staying asleep, waking from sleep. Denies knowledge of snoring. GASTROINTESTINAL: nausea and vomiting, some suprapubic discomfort GENITOURINARY: Denies frequency, urgency, nocturia, hematuria or incontinence (Storage/Irritative symptoms.) Low urinary stream, straining to void, urinary intermittency or hesitancy, splitting of the voiding stream, terminal dribbling. ENDOCRINOLOGIC: Denies polyuria, polydipsia, polyphagia or heat/cold intolerances. HEMATOLOGIC: Denies thrombophilia/previous clots, or coagulopathy/bleeding disorders. ONCOLOGIC: Denies personal history of malignancy. DERMATOLOGIC: Denies rashes or pruritus. PSYCHIATRIC: Denies any suicidal or homicidal ideation. Denies hallucinations. PAST MEDICAL HISTORY: Hypertension, hyperlipidemia, type 2 diabetes mellitus maintained on outpatient treatment with Farxiga, prior history of UTI, history of chronic iron deficiency anemia, prior history of hemorrhoids with gastric ulcer disease PAST SURGICAL HISTORY: Reports having had previous history of EGD in 06/2024, history of colonoscopy previously, history of cholecystectomy, history of hysterectomy, prior history of right shoulder rotator cuff surgery PAST SOCIAL HISTORY: Denies history of active smoking or alcohol consumption, resides alone at home, typically she is independent with ADLs and IADLs FAMILY HISTORY: Denies pertinent family history Allergies: No known drug allergies Medications: Farxiga 10 mg daily, losartan 50 mg twice daily, patient has been started recently on Bactrim for treatment of urinary tract infection Coded Allergies: No Known Drug Allergies (Verified Allergy, Unknown, 06/18/24) PHYSICAL EXAM: GENERAL APPEARANCE: The patient is awake, alert, and oriented, in no acute cardiopulmonary distress. NEUROLOGICAL: Cranial nerves II-XII grossly intact. Motor is 5/5 in bilateral upper and lower extremities proximal to distal. No sensory deficits. HEENT: Face is symmetric. Pupils are equal and reactive. Extraocular movements are intact. NECK: Supple. No JVD. No thyromegaly. No submental, submandibular, pre- /postauricular, occipital or supraclavicular lymphadenopathy. CHEST: Normal chest expansion. No Telemetry. LUNGS: Absence of any rales, rhonchi or any wheezing. CARDIOVASCULAR: Regular. S1 and S2 normal. No appreciable rubs, murmurs or gallops. ABDOMEN: Soft, nontender, and nondistended. There is no rebound, voluntary guarding, or rigidity. mild suprapubic discomfort : Deferred. No Pandey. EXTREMITIES: Non-edematous and not cyanotic. No clubbing. Good capillary refill. SKIN: No skin breakdown. Vital Sign (Last 24 Hours) 08/24/25 08/24/25 11:43 13:48 Temp 98.2 Pulse 71 Resp 18 B/P (MAP) 83/53 Pulse Ox 96 O2 Delivery N/A Room Air O2 Flow Rate 0 FiO2 21 LABS: Laboratory: Test 08/24/25 13:34 08/24/25 13:27 08/24/25 13:24 08/24/25 12:26 Range/Units Urine Color YELLOW YELLOW Urine Appearance CLOUDY H CLEAR Urine pH 5.5 5.0-8.0 Urine Specific [place]ers 1.033 H 1.001-1.031 Urine Protein 50 H NEGATIVE mg/dL Urine Glucose (UA) NEGATIVE NEGATIVE mg/dL Urine Ketones 5 H NEGATIVE mg/dL Urine Occult Blood MODERATE H NEGATIVE Urine Nitrate NEGATIVE NEGATIVE Urine Bilirubin 1 H NEGATIVE mg/dL Urine Urobilinogen 2.0 H 0.2-1.0 mg/dL Urine Leukocyte Esterase 75 H NEGATIVE Juvencio/uL Urine RBC 26-50 H 0-1 /HPF Urine WBC 11-25 H 0-1 /HPF Urine Squamous Epithelial Cells FEW 0-2 /HPF Urine Bacteria None None Seen /HPF Erythrocyte Sedimentation Rate 16 0-30 MM/HR Whole Blood Ketones Quantitative 1.5 H 0.0-0.6 mmol/L Lactic Acid Level 1.6 0.8-2.5 mmol/L Total Bilirubin 0.2 0.2-1.0 mg/dL Direct Bilirubin 0.1 0.0-0.3 mg/dL Aspartate Amino Transf (AST/SGOT) 23 10-37 U/L Alanine Aminotransferase (ALT/SGPT) 19 12-78 U/L Alkaline Phosphatase 85 50-136 U/L Total Protein 6.9 6.0-8.3 g/dL Albumin 3.7 3.5-5.0 g/dL Hemoglobin 6.9 *L 12.0-16.0 g/dL Hematocrit 25.2 L 36-48 % Blood Gas Specimen Type Arterial Arterial Blood pH 7.382 7.350-7.450 Arterial Blood Partial Pressure CO2 27 L 32-45 mmHg Arterial Blood Partial Pressure O2 94.2 83.0-108.0 mmHg Arterial Blood HCO3 15.6 L 21.0-28.0 mmol/L Arterial Blood Oxygen Saturation 96.4 94.0-98.0 % Arterial Blood Base Excess -8.5 L -2.0-3.0 mmol/L Hemoglobin (Blood Gas) 7.7 L 12.0-16.0 g/dL Sodium (Blood Gas) 136 136-145 MMOL/L Bedside Potassium (Blood Gas) 3.0 *L 3.4-4.5 MMOL/L Bedside Chloride (Blood Gas) 107 98-107 MMOL/L Bedside Glucose (Blood Gas) 71 65-95 MG/DL Bedside Ionized Calcium (Blood Gas) 1.17 1.15-1.33 MMOL/L Bedside Lactic Acid (Blood Gas) 0.89 H 0.36-0.75 MMOL/L Blood Gas Temperature 37.0 35.5-37.0 CELSIUS Blood Gas Vent Mode RA ROOM AIR FiO2 21.0 % Blood Gas Specimen Comment RB Hemoglobin A1c 7.2 H 4.0-6.0 % Estimated Average Glucose (eAG) 160 H 70-126 mg/dL Iron Level 13 L 50-170 mcg/dL Total Iron Binding Capacity 456 H 250-450 mcg/dL Percent Iron Saturation 2.8 L 22-44 % Ferritin 8 L 15-150 ng/mL Lactate Dehydrogenase 241 H 81-234 U/L C-Reactive Protein, Quantitative 7.20 H 0.5-3.0 mg/L Procalcitonin < 0.05 L 0.05-0.5 ng/mL Thyroid Stimulating Hormone (TSH) 0.72 # 0.36-3.74 uIU/mL Magnesium Level 1.80 1.80-2.40 mg/dL Test 08/24/25 10:57 Range/Units White Blood Count 5.9 4.8-10.8 K/uL Red Blood Count 4.11 4.00-5.50 MIL/uL Mean Corpuscular Volume 66.4 L 79-99 fL Mean Corpuscular Hemoglobin 18.0 L 27.0-33.0 pg Mean Corpuscular Hemoglobin Concent 27.1 L 32.0-36.0 g/dL Red Cell Distribution Width 20.6 H 11.0-15.5 % Platelet Count 760 *H 130-400 K/uL Mean Platelet Volume 8.5 7.5-10.5 fL Immature Granulocyte % (Auto) 0.3 0-1 % Neutrophils (%) (Auto) 51.9 40.0-77.0 % Lymphocytes (%) (Auto) 33.4 21.0-51.0 % Monocytes (%) (Auto) 10.3 3.0-13.0 % Eosinophils (%) (Auto) 2.9 0.0-8.0 % Basophils (%) (Auto) 1.2 0.0-5.0 % Neutrophils # (Auto) 3.1 1.8-7.7 K/uL Lymphocytes # (Auto) 2.0 1.0-4.8 K/uL Monocytes # (Auto) 0.6 0.1-1.0 K/uL Eosinophils # (Auto) 0.17 0.00-0.70 K/uL Basophils # (Auto) 0.07 0.00-0.20 K/uL Absolute Immature Granulocyte (auto 0.02 0-1 K/uL Nucleated Red Blood Cells 0.0 0.0-0.19 % Platelet Morphology Comment INCREASED Red Blood Cell Morphology See comments Prothrombin Time 11.0 9.6-11.6 SEC Prothromb Time International Ratio 1.04 0.85-1.15 Activated Partial Thromboplast Time 25.8 L 26.3-35.5 SEC Sodium Level 138 136-145 mmol/L Potassium Level 2.9 *L 3.5-5.1 mmol/L Chloride Level 101 101-111 mmol/L Carbon Dioxide Level 19 L 21-32 mmol/L Blood Urea Nitrogen 17 7-18 mg/dL Creatinine 2.6 H 0.5-1.0 mg/dL Glomerular Filtration Rate Calc 20 >90 mL/min Random Glucose 179 H 70-105 mg/dL Total Calcium 9.0 8.5-10.1 mg/dL Total Creatine Kinase 108 21-232 U/L Troponin I High Sensitivity 11 4-50 ng/L Current Medications Medications (Trade) Dose Ordered Sig/Sylvester Route PRN Reason Start Time Stop Time Status Last Admin Dose Admin Albuterol (DUOneb) 1 udvial Q6H PRN IH SHORTNESS OF BREATH 08/24/25 14:00 09/23/25 13:59 Ceftriaxone Sodium (ROCEphine 1G INJ) 1 gm Q12H IVPB 08/24/25 13:30 09/03/25 13:29 08/24/25 14:02 1 GM Dextrose/Sodium Chloride 1,000 ml @ 0 mls/hr AD IV 08/24/25 14:00 09/23/25 13:59 Insulin Human Regular 100 unit/ Sodium Chloride 101 ml @ 0 mls/hr PROTOCOL IV 08/24/25 14:00 09/23/25 13:59 Magnesium Sulfate 50 ml @ 0 mls/hr PROTOCOL IV 08/24/25 14:00 09/23/25 13:59 Pantoprazole Sodium (PROTonix 40MG INJ) 40 mg Q12H IVP 08/24/25 13:30 09/23/25 13:29 Potassium Chloride 20 meq/ Sodium Chloride 1,010 ml @ 0 mls/hr PROTOCOL IV 08/24/25 14:00 09/23/25 13:59 Potassium Chloride/Dextrose/ Sod Cl 1,000 ml @ 0 mls/hr AD IV 08/24/25 14:00 09/23/25 13:59 Potassium Chloride 100 ml @ 100 mls/hr AD PRN IV POTASSIUM PROTOCOL 08/24/25 14:00 09/23/25 13:59 Potassium Chloride 100 ml @ 0 mls/hr PROTOCOL PRN IV DKA POTASSIUM REPLACEMENT 08/24/25 14:00 09/23/25 13:59 Potassium Chloride (K-Dur/Klor-Con 20meq) 20 meq AD PRN PO POTASSIUM PROTOCOL 08/24/25 14:00 09/23/25 13:59 08/24/25 14:01 20 MEQ Potassium Chloride (KCl 10% Elixir 20meq/15ml) 20 meq AD PRN PO POTASSIUM PROTOCOL 08/24/25 14:00 09/23/25 13:59 Sodium Chloride 1,000 ml @ 75 mls/hr [id number] IV 08/24/25 13:30 08/24/25 13:34 DC Sodium Chloride 1,000 ml @ 75 mls/hr [id number] IV 08/24/25 13:30 08/24/25 14:11 DC 08/24/25 13:59 75 MLS/HR Sodium Chloride 1,000 ml @ 200 mls/hr PROTOCOL IV 08/24/25 14:00 09/23/25 13:59 Thiamine HCl (Vitamin B-1) 100 mg Q24H IVP 08/24/25 13:30 09/23/25 13:29 08/24/25 13:59 100 MG Vitamin B Complex/ Vit C/Folic Acid (Nephrovite Tablet) 1 cap DAILY PO 08/25/25 09:00 09/24/25 08:59 DIAGNOSTICS / RADIOLOGY: SERVICE REASON: weakness x 1 day ORDERING PHYSICIAN: CHIDI RAMOS MD PROCEDURE: HEAD WO - CT HEAD/BRAIN W/O CONTRAST CT OF THE BRAIN WITHOUT CONTRAST CLINICAL INDICATION: Weakness for 1 day TECHNIQUE: Multiple contiguous axial CT images were obtained through the brain without the administration of intravenous contrast. Coronal and sagittal reconstructions were also obtained. COMPARISON: None available FINDINGS: The ventricular system and cortical sulci demonstrate a normal size and configuration for the patients age. There is patchy hypoattenuation of the periventricular matter bilaterally consistent with microangiopathic ischemic disease. There are no extra-axial collections, mass effect, or midline shift. The basal cisterns are patent. The pimentel-white matter differentiation is preserved. The midline structures and cervicomedullary junction are unremarkable. There is no evidence of acute intracranial hemorrhage or areas of acute territorial infarction. Vascular calcification is present. The calvarium is unremarkable in appearance. No suspicious lytic or sclerotic osseous lesions are seen. The visualized portions of the sinuses are well aerated. The mastoid air cells are well pneumatized and well aerated. The visualized orbital structures are unremarkable. IMPRESSION: 1. No CT evidence of an acute intracranial process. 2. 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 /[place] DICTATED BY: MARCELLE OVIEDO MD DATE: 08/24/25 1526 ELECTRONICALLY SIGNED ASSESSMENT: Suspected euglycemic DKA likely provoked by Farxiga use as outpatient, POA Acute kidney injury, POA Metabolic acidosis with compensated respiratory alkalosis, POA Acute on chronic iron deficiency anemia, POA Urinary Tract infection, POA Moderate hypokalemia, POA Rule out chronic GI bleeding, POA Prior history of gastric ulcer, POA History of hemorrhoids, POA Type 2 diabetes mellitus, POA Hypertension, POA Hyperlipidemia, POA Thrombocytosis, POA Urinary tract infection, POA PLAN: Patient will be admitted to ICU Patient is on outpatient Farxiga use, blood ketone is positive, arterial blood gas shows bicarb of 15.6 and patient has compensated respiratory alkalosis We will obtain a stool guaiac to assess for occult GI bleed H&H will be monitored closely, q.6 hours Transfuse to maintain hemoglobin greater than seven Patient will be started on IV hydration, patient will be started on DKA protocol due to suspected euglycemic DKA likely provoked by Farxiga use as outpatient with underlying urinary tract infection, once potassium is greater than 3.3, we will start patient on a low-dose insulin drip until metabolic acidosis resolves We will hold losartan due to acute kidney injury Patient will receive oral potassium supplementation and once potassium is greater than 3.3, low dose insulin drip will be started Magnesium we will be maintain greater than two We will keep patient on Protonix IV 40 mg twice daily, if stool occult is positive, we will obtain consultation with GI We will hold Bactrim likely contributing towards the CARY, we will keep patient on IV Rocephin twice daily for management of urinary tract infection Iron panel will be obtained, if iron is significantly low on, we will start patient on IV iron sucrose infusion, thrombocytosis likely reactive from underlying iron deficiency anemia likely chronic All labs will be repeated in the morning, BMP will be checked q.4 hours tonight, patient will be started on thiamine supplementation, we will keep patient on DVT prophylaxis with SCDs Farxiga will be discontinued as outpatient Condition remains critical, critical care minutes: 45 minutes Plan of care was discussed with patient and son at bedside, Chidi Ramos MD, Advanced Care Planning: Which of the following were discussed: Hospice care: Yes __ No _x_ Therapeutic options: Yes _x_ No __ Advance directives: Yes _x_ No __ Other discussions: Discussed with who?: Patient Voluntary nature of this service was explained to the patient? Yes _x_ No __ Amount of time spent: 20 minutes CHIDI RAMOS MD Aug 24, 2025 14:41
--- NOTE | 2025-08-24 15:07 | NUR ---
DCP: HOME Pt states she lives in an apt with her daughter Ilsa Fitzpatrick [id number] and 2 grand daughters 20 and 13. Pt drives, states she is able to complete her ADLS, cleaning, cooking and laundry on her own. Pt is seen at [facility] for medical care and meds. Discussed dc needs. Pt denied need, wants to return home Addendum: 08/24/25 at 1510 by STEPHAN GARZA SS Amended: Links added.
--- NOTE | 2025-08-24 15:23 | HMCIMG ---
EXAM: CT Abdomen and Pelvis Without IV Contrast. CLINICAL HISTORY: Nausea/vomiting ??? 3 days, UTI, CARY. TECHNIQUE: Axial computed tomography images of the abdomen and pelvis were obtained without intravenous contrast. Multiplanar reformats were reviewed. CONTRAST: No IV contrast administered. DOSE SCAN DETAILS: No. Protocol # of Scans kVp CTDIvol (mGy) DLP (mGy???cm) 1 DualScano 1 120 ? 2 DualScano 1 120 ? 3 Helical 1 120 7.00 (Body) 376.90 (Body) Radiation Dose (From Helical Acquisition): CTDIvol: 7.00 mGy DLP: 376.90 mGy???cm COMPARISON: None provided. FINDINGS: LUNG BASES: Clear. No pleural effusion. LIVER: Unremarkable. GALLBLADDER AND BILE DUCTS: Surgically absent gallbladder. No intrahepatic or extrahepatic biliary dilatation. PANCREAS: Unremarkable. SPLEEN: Normal size and attenuation. ADRENAL GLANDS: Unremarkable. KIDNEYS, URETERS, AND BLADDER: Left renal calculus (0.5 cm) in the upper pole. No hydronephrosis or hydroureter. Urinary bladder unremarkable. STOMACH AND BOWEL: Uncomplicated colonic diverticulosis. No bowel wall thickening, obstruction, or inflammatory changes. Sliding hiatus hernia measuring 2.7 ??? 1.2 cm. APPENDIX: Not dilated; no periappendiceal inflammation. PERITONEUM: No free fluid or free air. ABDOMINAL WALL: Fascial defect at umbilical region measuring 1.5 cm containing fat???suggestive of a small fat-containing umbilical hernia. LYMPH NODES: No abnormally enlarged lymph nodes. REPRODUCTIVE ORGANS: Surgically absent uterus. Adnexal regions unremarkable. VASCULATURE: Aortoiliac vessels normal in calibre. No aneurysm. BONES: Degenerative thoracolumbar spondylosis. Grade I anterolisthesis of L3 over L4 secondary to facet arthropathy and pars defects. Loss of disc height at T10???T11 with endplate irregularities. No acute fracture. IMPRESSION: 1. Left renal calculus (0.5 cm) in the upper pole, without hydronephrosis or hydroureter. 2. Grade I anterolisthesis of L3 over L4 secondary to facet arthropathy and pars defects. 3. Degenerative thoracolumbar spondylosis, including loss of disc height at T10-T11 with endplate irregularities. No acute fracture. 4. Small fat-containing umbilical hernia, with fascial defect measuring 1.5 cm. 5. Sliding hiatus hernia (2.7 ??? 1.2 cm). 6. Uncomplicated colonic diverticulosis. 7. Surgically absent gallbladder and uterus. No intrahepatic or extrahepatic biliary dilatation. /[place]
--- NOTE | 2025-08-24 15:29 | NUR ---
all consults completed per celso
--- NOTE | 2025-08-24 15:29 | NUR ---
jairoa protoco pend blood admin per dr houston
[2025-08-24] MEDS: D5W-1/2 NS/20MEQ KCL 1,000 ML IV SCH (16:10)
[2025-08-24 16:16] LABS: CREATININE,URINE RANDOM 331.09 mg/dL (30-135)
[2025-08-24 17:02] LABS: CREATININE 1.8 mg/dL (0.5-1.0); GLOMERULAR FILTR. RATE CALC 31.0 mL/min (>90); GLUCOSE,RANDOM 123.0 mg/dL (70-105); SODIUM SERUM 139.0 mmol/L (136-145); UREA NITROGEN, BLOOD 16.0 mg/dL (7-18)
[2025-08-24] MEDS: INSULIN REGULAR, HUMAN 3ML 100 UNIT in 0.9%NACL 100ML 100 ML IV SCH (17:32)
--- NOTE | 2025-08-24 18:14 | NUR ---
first attempt report ext [phone] no answer at this time
--- NOTE | 2025-08-24 18:23 | NUR ---
second attenpt ext [phone] no answer at this time will try alt ext [phone]
--- NOTE | 2025-08-24 18:25 | NUR ---
no answer ext [phone] nurse curfrently providing pt care
--- NOTE | 2025-08-24 19:31 | CONS ---
[facility] CONSULTATION NOTE Date Patient Seen: Aug 24, 2025 Time of Visit: 19:29 Supervising Physician: Dr Hermelinda Garsia Reason for Consultation: Mild DKA, CARY Consulting Physician: Hospitalist Outpatient Specialists: [ ] Inpatient Consults: [ ] PROBLEM LIST: Acute kidney injury, POA Acute blood loss anemia, POA Acute metabolic acidosis, POA High anion gap metabolic acidosis Hypokalemia, POA ? DKA, computed anion gap of 18, initial serum glucose of 178 on BMP DM type 2, with hyperglycemia, poorly controlled, hemoglobin A1c of 7.2, POA Hypertension, POA Acute complicated cystitis, POA PLAN: Admit per primary Discontinue insulin drip, transition to Lantus, and q.4 fingerstick DC D5 containing IV fluids Continue LR at 150 cc an hour H&H q.6 Blood transfusion if hemoglobin drops below seven or becomes unstable Complete bedrest for now VS per ICU protocol Bilateral SCDs Monitor for bleeding Heart healthy diet Aspiration precautions Continue antibiotics Monitor for fever Follow up culture results CBC, CMP, magnesium level daily HPI: 65-year-old female with past medical history of chronic anemia, prior GI bleed, hemorrhoids, hypertension, DM type 2 ([facility]) , peptic ulcer disease who presented to the ER f with complaint of chest pain and generalized body weakness and found to have acute blood loss anemia, CARY, mild anion gap metabolic acidosis, possible mild DKA, and acute complicated cystitis. Per report she presented shortness of breath with exertion and tachypnea, with associated feeling dizzy and felt lightheaded. Her initial CBC showed WBC count of 5900, hemoglobin 7.4 (down to 6.9) MCV of 66.4, platelet count of 760. Her initial BMP showed sodium of 138, potassium 2.9, bicarb is 19, BUN of 17 , creatinine 2.6, blood ketone of 1.5, blood glucose of 179. Her computed anion gap was 18. Her ABG showed pH of 7.38, pCO2 of 27, bicarb of 15; UA consistent with cystitis. Patient was subsequently started on blood transfusion, DKA protocol, and IV antibiotics. ICU was consulted for critical care evaluation and DKA management. At present patient is currently hemodynamically stable, on room air with appropriate oxygen saturation, normal sinus rhythm on the monitor, not in acute respiratory distress, denies any specific complaint at this time. PAST MEDICAL HX: see above PAST SURGICAL HX: noncontributory SOCIAL HISTORY: No tobacco, ETOH, or illicit drug use Coded Allergies: No Known Drug Allergies (Verified Allergy, Unknown, 06/18/24) REVIEW OF SYSTEMS: 12 point ROS reviewed with patient. Pertinent positives mentioned above. Otherwise negative. PHYSICAL EXAM: GENERAL: alert, weak, awake oriented x 3 HEENT: EOMI, Sclera non icteric, moist mucosa NECK: Supple, no JVD, trachea midline LUNGS: Clear breath sounds bilaterally. No wheezes HEART: Regular rate and rhythm. Normal S1 and S2, without murmurs ABD: Abdomen soft, nontender. Bowel sounds present EXT: No clubbing cyanosis or edema NEURO: Alert and oriented to person, follows commands Vital Signs (last 8hr) Date Time Temp Pulse Resp B/P (MAP) Pulse Ox O2 Delivery O2 Flow Rate FiO2 08/24/25 18:16 98.2 78 16 138/59 96 Room Air* 0 21 08/24/25 17:58 98.2 78 16 138/59 96 Room Air* 0 21 08/24/25 17:40 98.2 78 16 138/59 96 Room Air* 0 21 08/24/25 13:48 71 18 N/A Room Air 21 08/24/25 11:43 98.2 86 16 83/53 96 Room Air* 0 21 LABS: Hematology Labs: Test 08/24/25 13:27 08/24/25 13:24 08/24/25 10:57 Range/Units Erythrocyte Sedimentation Rate 16 0-30 MM/HR Hemoglobin 6.9 *L 12.0-16.0 g/dL Hematocrit 25.2 L 36-48 % White Blood Count 5.9 4.8-10.8 K/uL Red Blood Count 4.11 4.00-5.50 MIL/uL Mean Corpuscular Volume 66.4 L 79-99 fL Mean Corpuscular Hemoglobin 18.0 L 27.0-33.0 pg Mean Corpuscular Hemoglobin Concent 27.1 L 32.0-36.0 g/dL Red Cell Distribution Width 20.6 H 11.0-15.5 % Platelet Count 760 *H 130-400 K/uL Mean Platelet Volume 8.5 7.5-10.5 fL Immature Granulocyte % (Auto) 0.3 0-1 % Neutrophils (%) (Auto) 51.9 40.0-77.0 % Lymphocytes (%) (Auto) 33.4 21.0-51.0 % Monocytes (%) (Auto) 10.3 3.0-13.0 % Eosinophils (%) (Auto) 2.9 0.0-8.0 % Basophils (%) (Auto) 1.2 0.0-5.0 % Neutrophils # (Auto) 3.1 1.8-7.7 K/uL Lymphocytes # (Auto) 2.0 1.0-4.8 K/uL Monocytes # (Auto) 0.6 0.1-1.0 K/uL Eosinophils # (Auto) 0.17 0.00-0.70 K/uL Basophils # (Auto) 0.07 0.00-0.20 K/uL Absolute Immature Granulocyte (auto 0.02 0-1 K/uL Nucleated Red Blood Cells 0.0 0.0-0.19 % Platelet Morphology Comment INCREASED Red Blood Cell Morphology See comments Chemistry Labs: Test 08/24/25 19:17 08/24/25 16:48 08/24/25 13:27 08/24/25 13:24 Range/Units Whole Blood Glucose 111 H 70-110 MG/DL Sodium Level 139 136-145 mmol/L Potassium Level 3.8 3.5-5.1 mmol/L Chloride Level 106 101-111 mmol/L Carbon Dioxide Level 19 L 21-32 mmol/L Blood Urea Nitrogen 16 7-18 mg/dL Creatinine 1.8 H 0.5-1.0 mg/dL Glomerular Filtration Rate Calc 31 >90 mL/min Random Glucose 123 H 70-105 mg/dL Total Calcium 8.3 L 8.5-10.1 mg/dL Whole Blood Ketones Quantitative 1.5 H 0.0-0.6 mmol/L Lactic Acid Level 1.6 0.8-2.5 mmol/L Total Bilirubin 0.2 0.2-1.0 mg/dL Direct Bilirubin 0.1 0.0-0.3 mg/dL Aspartate Amino Transf (AST/SGOT) 23 10-37 U/L Alanine Aminotransferase (ALT/SGPT) 19 12-78 U/L Alkaline Phosphatase 85 50-136 U/L Total Protein 6.9 6.0-8.3 g/dL Albumin 3.7 3.5-5.0 g/dL Hemoglobin A1c 7.2 H 4.0-6.0 % Estimated Average Glucose (eAG) 160 H 70-126 mg/dL Iron Level 13 L 50-170 mcg/dL Total Iron Binding Capacity 456 H 250-450 mcg/dL Percent Iron Saturation 2.8 L 22-44 % Ferritin 8 L 15-150 ng/mL Lactate Dehydrogenase 241 H 81-234 U/L C-Reactive Protein, Quantitative 7.20 H 0.5-3.0 mg/L Procalcitonin < 0.05 L 0.05-0.5 ng/mL Thyroid Stimulating Hormone (TSH) 0.72 # 0.36-3.74 uIU/mL Test 08/24/25 12:26 08/24/25 10:57 Range/Units Magnesium Level 1.80 1.80-2.40 mg/dL Total Creatine Kinase 108 21-232 U/L Troponin I High Sensitivity 11 4-50 ng/L Coagulation Labs: Test 08/24/25 10:57 Range/Units Prothrombin Time 11.0 9.6-11.6 SEC Prothromb Time International Ratio 1.04 0.85-1.15 Activated Partial Thromboplast Time 25.8 L 26.3-35.5 SEC DIAGNOSTICS / RADIOLOGY RESULTS: EXAM: CR Chest, 1 View. CLINICAL HISTORY: cp COMPARISON: None provided. FINDINGS: LUNGS: There is no mass, infiltrate, or acute pulmonary abnormality. PLEURAL SPACES: No evidence of pleural effusion or pneumothorax. MEDIASTINUM: The cardiomediastinal silhouette is within normal limits. BONES: No aggressive appearing osseous lesion seen. IMPRESSION: No acute cardiopulmonary pathology is evident. CT OF THE BRAIN WITHOUT CONTRAST CLINICAL INDICATION: Weakness for 1 day TECHNIQUE: Multiple contiguous axial CT images were obtained through the brain without the administration of intravenous contrast. Coronal and sagittal reconstructions were also obtained. COMPARISON: None available FINDINGS: The ventricular system and cortical sulci demonstrate a normal size and configuration for the patients age. There is patchy hypoattenuation of the periventricular matter bilaterally consistent with microangiopathic ischemic disease. There are no extra-axial collections, mass effect, or midline shift. The basal cisterns are patent. The pimentel-white matter differentiation is preserved. The midline structures and cervicomedullary junction are unremarkable. There is no evidence of acute intracranial hemorrhage or areas of acute territorial infarction. Vascular calcification is present. The calvarium is unremarkable in appearance. No suspicious lytic or sclerotic osseous lesions are seen. The visualized portions of the sinuses are well aerated. The mastoid air cells are well pneumatized and well aerated. The visualized orbital structures are unremarkable. IMPRESSION: 1. No CT evidence of an acute intracranial process. 2. 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 PLAN NEURO: Minimize central acting medications as possible. Fall Precautions. Well lighted room through the day and minimize interruptions through the night to prevent acute delirium. PULMONARY: Supplemental 02 as needed Titrate Fio2 to keep Spo2 > or = 90% DuoNebs and CPT as needed IS hourly while awake for pulmonary hygiene CARDIOVASCULAR: Follow hemodynamics. Titrate vasopressor to keep MAP >65 or systolic blood pressure >95mmHg DIPS: Insulin LINES: [PIV GI & NUTRITION: Continue nutritional support Aspirations precautions Prokinetic agents and laxatives as needed KIDNEYS & ELECTROLYTES: Strict monitoring of intake and output Daily weights Avoid nephrotoxic agents Monitor electrolytes and replace as needed Goal urine output of 30mL/hr or 0.5mL/kg/hr ENDOCRINE: Maintain blood glucose between 100-180 at all times. Insulin sliding scale for blood glucose management INFECTIOUS DISEASE: Trend temperature. Mota-culture if febrile. Micro: [ ] Antibiotics: Ceftriaxone HEMATOLOGY & COAGULATION: Monitor H&H. Keep Hgb > 7 Transfuse 1 unit of PRBC for Hgb < 7 Transfuse 1 pack of platelets of platelets < 20, 000 Watch for any signs and symptoms of bleeding SKIN: Pressure ulcer prevention per facility protocol Rehab: PT/OT Prophylaxis: GI: PPI DVT: Bilateral SCDs Code Status: Full Resuscitation Disposition: Can be downgraded to PCCU once insulin is off and transition to subcutaneous Lantus Other: Total patient care time exceeds 35 minutes excluding all procedures. Supervising physician: OUMOU Castillo AGACN Aug 24, 2025 19:31
[2025-08-24] MEDS ORDERED: METH-811 PO (20:01)
[2025-08-24 20:07] LABS: CREATININE 1.6 mg/dL (0.5-1.0); GLOMERULAR FILTR. RATE CALC 36.0 mL/min (>90); GLUCOSE,RANDOM 123.0 mg/dL (70-105); SODIUM SERUM 139.0 mmol/L (136-145); UREA NITROGEN, BLOOD 15.0 mg/dL (7-18)
--- NOTE | 2025-08-24 20:41 | NUR ---
RE: BMP Results [facility] for critical care made aware of BMP results. Per [facility] d/c dka protocol. Start pt on LR at 150; administer lantus 10 units subcutaneous and start her on diet. Do blood sugars q4H then AC/HS in AM with regular medium sliding scale.
[2025-08-24] MEDS: LACTATED RINGERS 1000ML 1,000 ML IV SCH (21:04)
[2025-08-24] MEDS ORDERED: PHENAZOpyridine HCL 200 MG TAB 200 MG TABLET PO PRN (22:00)
[2025-08-25] VITALS (14 sets, daily range): BP systolic 116–129; BP diastolic 39–81; PULSE 64–82; RESP 14–20; TEMP 98–98.5; O2SAT 98–100
--- NOTE | 2025-08-25 | NUR ---
Blood sugar check Blood sugar check done on pt. Juice given to patient. Pt educated on signs and symptoms of hypoglycemia and to call nurse if having any of those symptoms. Pt verbalized understanding.
[2025-08-25] MEDS: PoTASSium chl 10% ELIXIR 20MEQ 20 MEQ/15 ML UDCUP PO PRN (00:14)
[2025-08-25 02:05] LABS: CREATININE,URINE RANDOM 161.31 mg/dL (30-135)
--- NOTE | 2025-08-25 04:00 | NUR ---
Blood sugar check Blood sugar check done on pt. Juice given to patient. Pt educated on signs and symptoms of hypoglycemia and to call nurse if having any of those symptoms. Pt verbalized understanding. Informed pt will repeat blood sugar check before breakfast.
--- NOTE | 2025-08-25 04:02 | CONS ---
NEPHROLOGY CONSULTATION REASON FOR CONSULTATION: Acute renal failure and multiple electrolyte problems. HISTORY OF PRESENT ILLNESS: This patient has multiple medical problems. The patient has a history of anemia, history of iron deficiency, GI bleeding, hemorrhoids, hypertension, and diabetes. The patient is now brought in with diabetic ketoacidosis, euglycemic. The patient was on SGLT2 inhibitors. The patient has a history of nausea and vomiting, found to have elevated BUN and creatinine. The patient was recently given Bactrim. No other associated symptoms. No other aggravating or relieving factor. The patient is hypokalemic also. PAST MEDICAL HISTORY: Type 2 diabetes, hypertension, hyperlipidemia, anemia, ____, iron deficiency anemia, hemorrhoid, and gastric ulcer. PAST SURGICAL HISTORY: EGD, colonoscopy, cholecystectomy, hysterectomy, and right shoulder surgery. FAMILY HISTORY: Not pertinent. ALLERGIES: None. REVIEW OF SYSTEMS: CONSTITUTIONAL: Has been weak. No fevers, chills, or rigors. HEENT: With no headache, oral ulcers, sore throat, or difficulty swallowing. RESPIRATORY: With no cough expectoration. CARDIOVASCULAR: No orthopnea or PND. GASTROINTESTINAL: Negative for nausea, vomiting, or diarrhea. GENITOURINARY: Negative for dysuria or hematuria. ENDOCRINE: No polyuria, polydipsia, or polyphagia. NEUROLOGIC: No seizures or syncope. LYMPHATIC AND HEMATOPOIETIC: No bleeding tendencies or swelling noted in lymph node areas. MUSCULOSKELETAL: With no joint tenderness, redness or inflammation. DERMATOLOGIC: No rashes, pruritus or skin lesion. PSYCHIATRIC: Negative for any anxiety or depression. PHYSICAL EXAMINATION: GENERAL: Pale. No other distress or deformities. The patient is going to ICU. VITAL SIGNS: The patient's blood pressure has been low up to 83/54. HEENT: Head is atraumatic, normocephalic. Pupils are round and reactive. Sclerae anicteric, conjunctivae not pale. Oral mucosa is not dry. NECK: Supple with no masses or bruits. Thyroid is palpable. Neck has no bruits CHEST: Shows ____ prolonged expiration, percussion noted. CARDIAC: Regular rhythm, no rub, no S3 or S4. No parasternal heave. ABDOMEN: No guarding or tenderness. Bowel sounds normoactive. No free fluid. EXTREMITIES: With no edema and no cyanosis or clubbing. BACK: No tenderness or back deformity. LYMPHATIC: No lymph node swelling in neck and axillary area. NEUROLOGIC: Awake, alert, nonfocal. LABORATORY DATA: Lab data has shown the patient has low hemoglobin up to 6.9, hematocrit 25. The patient has platelet 760, ketones positive, BUN of 15, and creatinine has been elevated to 2.8. Low potassium has been present. Urine has shown minimal proteinuria. IMAGING STUDIES: Abdominopelvic CT has been done with left renal calculus, degenerative thoracolumbar spondylosis, umbilical hernia, colonic diverticula, and absent gallbladder. No evidence of hydronephrosis. Head CT was reviewed. Chest x-ray was personally reviewed and old records have been reviewed. PROBLEMS: * Acute renal failure. * Multiple electrolyte problems including hypokalemia. * Suspected euglycemic ketoacidosis with SGLT2 on board. * The patient has cirrhosis, pyuria. * Possible urinary tract infection. * Anemia, possible gastrointestinal bleeding, history of gastric ulcers. * The patient has been having hypertension. * Hyperlipidemia. * The patient has multiple other comorbidities. This condition remains guarded. PLAN: * Being admitted to ICU. * The patient will get IV fluids with potassium replacement. * Insulin after that. * The patient will get transfusion as needed. * Iron studies, ferritin. * Nonsteroidal drug to be avoided. * IV Dilaudid can be used for pain 0.5 mg q.6h. * Losartan can be stopped for the time being because of hypotension. * Nonsteroidal drug and other nephrotoxic to be avoided. * Urinary tract infection with appropriate antibiotics. * Bactrim should be stopped for the time being. * The patient's Farxiga has been discontinued. Intake, output, weight, electrolyte, renal function, and urine output overall status will be monitored. We have reviewed the labs, x-rays, and imaging studies all personally. We have reviewed the external record and previous records. We have discussed with Dr. Ramos personally and we will continue monitoring. Followup labs including CBC, CMP, magnesium ordered and potassium ordered. We will need close followup. Condition is critical guarded. Thank you for this patient. TID: [id number] RECEIPT: [id number]
[2025-08-25 05:00] LABS: IMMATURE GRANULOCYTE ABSOLUTE 0.02 K/uL (0-1); NUCLEATED RED BLOOD CELLS 0.0 % (0.0-0.19); PLATELET COUNT (AUTO) 568 K/uL (130-400); RED BLOOD CELL COUNT(AUTO) 3.94 MIL/uL (4.00-5.50); RED CELL DISTRIBUTION WIDTH 21.8 % (11.0-15.5); WHITE BLOOD COUNT (AUTO) 5.6 K/uL (4.8-10.8)
[2025-08-25 05:12] LABS: ASPARTATE AMINOTRANSFERASE 19.0 U/L (10-37); CREATININE 1.0 mg/dL (0.5-1.0); GLOMERULAR FILTR. RATE CALC 63.0 mL/min (>90); GLUCOSE,RANDOM 101.0 mg/dL (70-105); PHOSPHORUS 2.6 mg/dL (2.5-4.9); SODIUM SERUM 142.0 mmol/L (136-145); TOTAL PROTEIN, SERUM 5.8 g/dL (6.0-8.3); UREA NITROGEN, BLOOD 11.0 mg/dL (7-18)
[2025-08-25] MEDS: MAGNESIUM 2GM PREMIX 50ML 50 ML IV SCH (06:18)
[2025-08-25] MEDS ORDERED: Vitamin B Complex/Vit C/Folic Acid PO SCH (09:00)
[2025-08-25] MEDS: Vitamin B Complex/Vit C/Folic Acid PO SCH (09:30)
[2025-08-25 09:33] LABS: CREATININE 0.9 mg/dL (0.5-1.0); GLOMERULAR FILTR. RATE CALC 71.0 mL/min (>90); GLUCOSE,RANDOM 93.0 mg/dL (70-105); SODIUM SERUM 140.0 mmol/L (136-145); UREA NITROGEN, BLOOD 9.0 mg/dL (7-18)
--- NOTE | 2025-08-25 10:40 | NUR ---
RECEIVED PATIENT TO ROOM 324. IN NO DISTRESS AT THIS TIME
--- NOTE | 2025-08-25 11:06 | PN ---
[facility] PROGRESS NOTE Date Patient Seen: Aug 25, 2025 Time of Visit: 11:02 Supervising Physician: Dr Pavel Hernandez Consulting Physician: Hospitalist Outpatient Specialists: [ ] Inpatient Consults: [ ] PROBLEM LIST: DKA CARY Acute blood loss anemia Acute complicated cystitis Hypokalemia INTERVAL HISTORY: Patient was seen and examined, patient is sitting comfortably in bed, reporting no pain or discomfort. Patient insulin drip has been placed on hold Diet resumed she is on a long-acting are gap is now closed since 4:00 a.m. She is on Rocephin for a UTI And she received 1 unit PRBCs for hemoglobin that is 6.9 and pending a recheck Nursing reports no acute events overnight Afebrile Vital signs are stable Plan: Diabetic diet, sliding-scale insulin, long-acting Follow pending labs Follow cultures, continue on the Rocephin Trend her hemoglobin Downgrade to medical Critical care will sign off, thank you for allowing us to participate in the care of your patient REVIEW OF SYSTEMS: 12 point ROS reviewed with patient. Pertinent positives mentioned above. Otherwise negative. PHYSICAL EXAM: GENERAL: alert, weak, awake oriented x 3 HEENT: EOMI, Sclera non icteric, moist mucosa NECK: Supple, no JVD, trachea midline LUNGS: Clear breath sounds bilaterally. No wheezes HEART: Regular rate and rhythm. Normal S1 and S2, without murmurs ABD: Abdomen soft, nontender. Bowel sounds present EXT: No clubbing cyanosis or edema NEURO: Alert and oriented to person, follows commands Vital Signs (last 8hr) Date Time Temp Pulse Resp B/P (MAP) Pulse Ox O2 Delivery O2 Flow Rate FiO2 08/25/25 08:00 99 Room Air* 0 21 08/25/25 08:00 71 14 124/80 97 Room Air 08/25/25 07:20 67 18 N/A Room Air 21 08/25/25 07:00 98.4 67 17 116/65 100 Room Air 08/25/25 04:11 98.1 08/25/25 04:11 73 20 129/81 100 Room Air 08/25/25 04:00 99 Room Air* 0 21 LABS: Hematology Labs: Test 08/25/25 04:26 08/24/25 13:27 08/24/25 10:57 Range/Units White Blood Count 5.6 4.8-10.8 K/uL Red Blood Count 3.94 L 4.00-5.50 MIL/uL Hemoglobin 7.6 L 12.0-16.0 g/dL Hematocrit 27.1 L 36-48 % Mean Corpuscular Volume 68.8 L 79-99 fL Mean Corpuscular Hemoglobin 19.3 L 27.0-33.0 pg Mean Corpuscular Hemoglobin Concent 28.0 L 32.0-36.0 g/dL Red Cell Distribution Width 21.8 H 11.0-15.5 % Platelet Count 568 #H 130-400 K/uL Mean Platelet Volume 8.8 7.5-10.5 fL Immature Granulocyte % (Auto) 0.4 0-1 % Neutrophils (%) (Auto) 49.9 40.0-77.0 % Lymphocytes (%) (Auto) 33.6 21.0-51.0 % Monocytes (%) (Auto) 10.3 3.0-13.0 % Eosinophils (%) (Auto) 4.6 0.0-8.0 % Basophils (%) (Auto) 1.2 0.0-5.0 % Neutrophils # (Auto) 2.8 1.8-7.7 K/uL Lymphocytes # (Auto) 1.9 1.0-4.8 K/uL Monocytes # (Auto) 0.6 0.1-1.0 K/uL Eosinophils # (Auto) 0.26 0.00-0.70 K/uL Basophils # (Auto) 0.07 0.00-0.20 K/uL Absolute Immature Granulocyte (auto 0.02 0-1 K/uL Nucleated Red Blood Cells 0.0 0.0-0.19 % Erythrocyte Sedimentation Rate 16 0-30 MM/HR Platelet Morphology Comment INCREASED Red Blood Cell Morphology See comments Chemistry Labs: Test 08/25/25 09:18 08/25/25 08:39 08/25/25 04:26 08/24/25 13:27 Range/Units Sodium Level 140 136-145 mmol/L Potassium Level 3.9 3.5-5.1 mmol/L Chloride Level 110 101-111 mmol/L Carbon Dioxide Level 22 21-32 mmol/L Blood Urea Nitrogen 9 7-18 mg/dL Creatinine 0.9 0.5-1.0 mg/dL Glomerular Filtration Rate Calc 71 >90 mL/min Random Glucose 93 70-105 mg/dL Total Calcium 8.4 L 8.5-10.1 mg/dL Whole Blood Glucose 94 70-110 MG/DL Phosphorus Level 2.6 2.5-4.9 mg/dL Magnesium Level 1.70 L 1.80-2.40 mg/dL Total Bilirubin 0.2 0.2-1.0 mg/dL Aspartate Amino Transf (AST/SGOT) 19 10-37 U/L Alanine Aminotransferase (ALT/SGPT) 16 12-78 U/L Alkaline Phosphatase 70 50-136 U/L Total Protein 5.8 L 6.0-8.3 g/dL Albumin 3.0 L 3.5-5.0 g/dL Whole Blood Ketones Quantitative 1.5 H 0.0-0.6 mmol/L Lactic Acid Level 1.6 0.8-2.5 mmol/L Direct Bilirubin 0.1 0.0-0.3 mg/dL Test 08/24/25 13:24 08/24/25 10:57 Range/Units Hemoglobin A1c 7.2 H 4.0-6.0 % Estimated Average Glucose (eAG) 160 H 70-126 mg/dL Iron Level 13 L 50-170 mcg/dL Total Iron Binding Capacity 456 H 250-450 mcg/dL Percent Iron Saturation 2.8 L 22-44 % Ferritin 8 L 15-150 ng/mL Lactate Dehydrogenase 241 H 81-234 U/L C-Reactive Protein, Quantitative 7.20 H 0.5-3.0 mg/L Procalcitonin < 0.05 L 0.05-0.5 ng/mL Thyroid Stimulating Hormone (TSH) 0.72 # 0.36-3.74 uIU/mL Total Creatine Kinase 108 21-232 U/L Troponin I High Sensitivity 11 4-50 ng/L Coagulation Labs: Test 08/24/25 10:57 Range/Units Prothrombin Time 11.0 9.6-11.6 SEC Prothromb Time International Ratio 1.04 0.85-1.15 Activated Partial Thromboplast Time 25.8 L 26.3-35.5 SEC DIAGNOSTICS / RADIOLOGY RESULTS: [ ] PLAN NEURO: Minimize central acting medications as possible. Maintain fall precautions, adequate lighting during the day PULMONARY: Supplemental 02 as needed. Maintain aspiration precautions at all times CARDIOVASCULAR: Follow hemodynamics. Vital signs per facility protocol GI & NUTRITION: Continue with nutritional support. Continue stool softeners and laxatives as needed. KIDNEYS & ELECTROLYTES: Strict monitoring of intake, output and overall fluid balance. Avoid nephrotoxic medications to the extent possible. Medications to be dosed according to renal function. Monitor electrolytes and replace as needed ENDOCRINE: Maintain blood glucose between 100-180 at all times. Hypoglycemia protocol in place INFECTIOUS DISEASE: Trend temperature, WBC and procalcitonin level Follow cultures, deescalate antibiotics as soon as possible. Panculture if new onset fever ONCOLOGY/HEMATOLOGY/COAGULATION: Monitor for s/s of bleeding Monitor hemoglobin, coagulation studies as needed SKIN: Pressure ulcer prevention per facility protocol Specialty mattress ORTHO/REHAB: Continue PT/OT Prophylaxis: Continue GI and DVT prophylaxis Code Status: Full Resuscitation Disposition: TBD Other: Total patient care time exceeds 35 minutes excluding all procedures. SHARI SCHUSTER PAC Aug 25, 2025 11:06
[2025-08-25] MEDS ORDERED: COMPOUND IV REFRIGERATED 1 EACH IVSOLN MISC PRN (12:00)
[2025-08-25] MEDS ORDERED: COMPOUND IV MISC 1 EACH IVSOLN MISC PRN (12:00)
--- NOTE | 2025-08-25 15:19 | PN ---
[facility] PROGRESS NOTE Date of Service: Aug 25, 2025 Time of Service: 14:14 This is a 65-year-old female with underlying history of chronic anemia, history of iron deficiency, prior history of GI bleed, hemorrhoids, hypertension, type 2 diabetes mellitus maintained on outpatient treatment with SGLT2 inhibitor with Farxiga, history of gastric ulcer who presented to the ER for further evaluation of dizziness, generalized weakness, poor oral intake with nausea and vomiting. Symptoms have been ongoing since yesterday. Son reports that patient was recently diagnosed with urinary tract infection and was started on outpatient treated with oral Bactrim. She has been holding Farxiga for last 2-3 days due to UTI. She has been having poor oral intake, some suprapubic discomfort. Today, she was having shortness of breath with exertion and tachypnea, she was feeling dizzy and felt lightheaded. Symptoms have been nonresolving prompting her to come to the ER for further evaluation. Patient previously has been hospitalized in [facility] in 06/2024 when she had hematochezia. She reports having previous history of blood transfusion as well. She had a upper endoscopy in in 06/2024 which showed nonbleeding gastric ulcer. Patient also has a history of hemorrhoids. She denies having hematemesis, hematochezia or melena. Son has noticed that patient was having some blood in the urine with her recent UTI. She is currently not taking iron supplementation. Patient denies any previous history of chronic kidney disease. She has been a diabetic for about one year and has been on Farxiga chronically. On presentation, patient was noted to be afebrile with T-max of 98.1 F, heart rate of 94, blood pressure 109/54. Labs on presentation showed WBC count of 5900, hemoglobin 7.4, MCV of 66.4, platelet count of 244874. BMP showed sodium of 138, potassium 2.9, bicarb is 19, BUN of 17 , creatinine 2.6, blood ketone of 1.5, blood glucose of 179. X-ray showed no acute infiltrates. ABG showed pH of 7.38, pCO2 of 27, bicarb of 15, lactic acid of one. SUBJECTIVE: 08/25/25: Patient was evaluated in room 216. Patient reports feeling better. today her anion gap has dropped down to 8mEq/L today from 18mEq/L during admission. Blood glucose level today was 99, so the insulin drip was stopped and patient was downgraded from ICU to Med/surg floors. Labs today Hb-7.6, Albumin 3.0 and ABG from 08/24/25 was pH-7.38, Pco2-27, PO2-94.2, Hco3-15.6. REVIEW OF SYSTEMS CONSTITUTIONAL: poor oral intake, malaise, fatigue NEUROLOGICAL: Denies headache, amaurosis fugax, motor weakness, sensory deficit, vertigo/spinning sensation, gait abnormalities, or tremors. ENT: No hearing loss, otalgia, otorrhea, rhinitis, rhinorrhea, hoarseness, or sore throat. CARDIOVASCULAR: Denies any exertional angina, dyspnea on exertion, orthopnea, paroxysmal nocturnal dyspnea, palpitations, life-threatening arrhythmias, claudication. PULMONARY: Denies any shortness of breath, cough, phlegm/sputum, hemoptysis, pleuritic chest pain. SLEEP: Denies morning headaches, daytime somnolence or napping. Denies difficulty falling asleep, staying asleep, waking from sleep. Denies knowledge of snoring. GASTROINTESTINAL: nausea and vomiting, some suprapubic discomfort GENITOURINARY: Denies frequency, urgency, nocturia, hematuria or incontinence (Storage/Irritative symptoms.) Low urinary stream, straining to void, urinary intermittency or hesitancy, splitting of the voiding stream, terminal dribbling. ENDOCRINOLOGIC: Denies polyuria, polydipsia, polyphagia or heat/cold intoleranc es. HEMATOLOGIC: Denies thrombophilia/previous clots, or coagulopathy/bleeding disorders. ONCOLOGIC: Denies personal history of malignancy. DERMATOLOGIC: Denies rashes or pruritus. PSYCHIATRIC: Denies any suicidal or homicidal ideation. Denies hallucinations. PHYSICAL EXAM: GENERAL APPEARANCE: The patient is awake, alert, and oriented, in no acute cardiopulmonary distress. NEUROLOGICAL: Cranial nerves II-XII grossly intact. Motor is 5/5 in bilateral upper and lower extremities proximal to distal. No sensory deficits. HEENT: Face is symmetric. Pupils are equal and reactive. Extraocular movements are intact. NECK: Supple. No JVD. No thyromegaly. No submental, submandibular, pre- /postauricular, occipital or supraclavicular lymphadenopathy. CHEST: Normal chest expansion. No Telemetry. LUNGS: Absence of any rales, rhonchi or any wheezing. CARDIOVASCULAR: Regular. S1 and S2 normal. No appreciable rubs, murmurs or gallops. ABDOMEN: Soft, nontender, and nondistended. There is no rebound, voluntary guarding, or rigidity. mild suprapubic discomfort : Deferred. No Pandey. EXTREMITIES: Non-edematous and not cyanotic. No clubbing. Good capillary refill. SKIN: No skin breakdown. Vital Signs (last 8hr) Date Time Temp Pulse Resp B/P (MAP) Pulse Ox O2 Delivery O2 Flow Rate FiO2 08/25/25 12:06 98.1 75 17 118/59 99 Room Air 08/25/25 08:00 99 Room Air* 0 21 08/25/25 08:00 71 14 124/80 97 Room Air 08/25/25 07:20 67 18 N/A Room Air 21 08/25/25 07:00 98.4 67 17 116/65 100 Room Air LABS: Laboratory: Test 08/25/25 11:57 08/25/25 09:18 08/25/25 04:26 08/25/25 00:50 Range/Units Whole Blood Glucose 120 H 70-110 MG/DL Sodium Level 140 136-145 mmol/L Potassium Level 3.9 3.5-5.1 mmol/L Chloride Level 110 101-111 mmol/L Carbon Dioxide Level 22 21-32 mmol/L Blood Urea Nitrogen 9 7-18 mg/dL Creatinine 0.9 0.5-1.0 mg/dL Glomerular Filtration Rate Calc 71 >90 mL/min Random Glucose 93 70-105 mg/dL Total Calcium 8.4 L 8.5-10.1 mg/dL White Blood Count 5.6 4.8-10.8 K/uL Red Blood Count 3.94 L 4.00-5.50 MIL/uL Hemoglobin 7.6 L 12.0-16.0 g/dL Hematocrit 27.1 L 36-48 % Mean Corpuscular Volume 68.8 L 79-99 fL Mean Corpuscular Hemoglobin 19.3 L 27.0-33.0 pg Mean Corpuscular Hemoglobin Concent 28.0 L 32.0-36.0 g/dL Red Cell Distribution Width 21.8 H 11.0-15.5 % Platelet Count 568 #H 130-400 K/uL Mean Platelet Volume 8.8 7.5-10.5 fL Immature Granulocyte % (Auto) 0.4 0-1 % Neutrophils (%) (Auto) 49.9 40.0-77.0 % Lymphocytes (%) (Auto) 33.6 21.0-51.0 % Monocytes (%) (Auto) 10.3 3.0-13.0 % Eosinophils (%) (Auto) 4.6 0.0-8.0 % Basophils (%) (Auto) 1.2 0.0-5.0 % Neutrophils # (Auto) 2.8 1.8-7.7 K/uL Lymphocytes # (Auto) 1.9 1.0-4.8 K/uL Monocytes # (Auto) 0.6 0.1-1.0 K/uL Eosinophils # (Auto) 0.26 0.00-0.70 K/uL Basophils # (Auto) 0.07 0.00-0.20 K/uL Absolute Immature Granulocyte (auto 0.02 0-1 K/uL Nucleated Red Blood Cells 0.0 0.0-0.19 % Phosphorus Level 2.6 2.5-4.9 mg/dL Magnesium Level 1.70 L 1.80-2.40 mg/dL Total Bilirubin 0.2 0.2-1.0 mg/dL Aspartate Amino Transf (AST/SGOT) 19 10-37 U/L Alanine Aminotransferase (ALT/SGPT) 16 12-78 U/L Alkaline Phosphatase 70 50-136 U/L Total Protein 5.8 L 6.0-8.3 g/dL Albumin 3.0 L 3.5-5.0 g/dL Urine Random Creatinine 161.31 H 30-135 mg/dL Urine Random Sodium 100 40-220 mmol/l Urine Random Potassium 24 L 25-125 mmol/L Urine Random Chloride 139 110-250 mmol/L Test 08/24/25 13:34 08/24/25 13:27 08/24/25 13:24 08/24/25 10:57 Range/Units Urine Color YELLOW YELLOW Urine Appearance CLOUDY H CLEAR Urine pH 5.5 5.0-8.0 Urine Specific [place] 1.033 H 1.001-1.031 Urine Protein 50 H NEGATIVE mg/dL Urine Glucose (UA) NEGATIVE NEGATIVE mg/dL Urine Ketones 5 H NEGATIVE mg/dL Urine Occult Blood MODERATE H NEGATIVE Urine Nitrate NEGATIVE NEGATIVE Urine Bilirubin 1 H NEGATIVE mg/dL Urine Urobilinogen 2.0 H 0.2-1.0 mg/dL Urine Leukocyte Esterase 75 H NEGATIVE Juvencio/uL Urine RBC 26-50 H 0-1 /HPF Urine WBC 11-25 H 0-1 /HPF Urine Squamous Epithelial Cells FEW 0-2 /HPF Urine Bacteria None None Seen /HPF Urine Osmolality 418 50-1200 mOsm/kg Erythrocyte Sedimentation Rate 16 0-30 MM/HR Whole Blood Ketones Quantitative 1.5 H 0.0-0.6 mmol/L Lactic Acid Level 1.6 0.8-2.5 mmol/L Direct Bilirubin 0.1 0.0-0.3 mg/dL Blood Gas Specimen Type Arterial Arterial Blood pH 7.382 7.350-7.450 Arterial Blood Partial Pressure CO2 27 L 32-45 mmHg Arterial Blood Partial Pressure O2 94.2 83.0-108.0 mmHg Arterial Blood HCO3 15.6 L 21.0-28.0 mmol/L Arterial Blood Oxygen Saturation 96.4 94.0-98.0 % Arterial Blood Base Excess -8.5 L -2.0-3.0 mmol/L Hemoglobin (Blood Gas) 7.7 L 12.0-16.0 g/dL Sodium (Blood Gas) 136 136-145 MMOL/L Bedside Potassium (Blood Gas) 3.0 *L 3.4-4.5 MMOL/L Bedside Chloride (Blood Gas) 107 98-107 MMOL/L Bedside Glucose (Blood Gas) 71 65-95 MG/DL Bedside Ionized Calcium (Blood Gas) 1.17 1.15-1.33 MMOL/L Bedside Lactic Acid (Blood Gas) 0.89 H 0.36-0.75 MMOL/L Blood Gas Temperature 37.0 35.5-37.0 CELSIUS Blood Gas Vent Mode RA ROOM AIR FiO2 21.0 % Blood Gas Specimen Comment RB Hemoglobin A1c 7.2 H 4.0-6.0 % Estimated Average Glucose (eAG) 160 H 70-126 mg/dL Iron Level 13 L 50-170 mcg/dL Total Iron Binding Capacity 456 H 250-450 mcg/dL Percent Iron Saturation 2.8 L 22-44 % Ferritin 8 L 15-150 ng/mL Lactate Dehydrogenase 241 H 81-234 U/L C-Reactive Protein, Quantitative 7.20 H 0.5-3.0 mg/L Procalcitonin < 0.05 L 0.05-0.5 ng/mL Thyroid Stimulating Hormone (TSH) 0.72 # 0.36-3.74 uIU/mL Platelet Morphology Comment INCREASED Red Blood Cell Morphology See comments Prothrombin Time 11.0 9.6-11.6 SEC Prothromb Time International Ratio 1.04 0.85-1.15 Activated Partial Thromboplast Time 25.8 L 26.3-35.5 SEC Total Creatine Kinase 108 21-232 U/L Troponin I High Sensitivity 11 4-50 ng/L Current Medications Medications (Trade) Dose Ordered Sig/Sylvester Route PRN Reason Start Time Stop Time Status Last Admin Dose Admin Albuterol (DUOneb) 1 udvial Q6H PRN IH SHORTNESS OF BREATH 08/24/25 14:00 09/23/25 13:59 Ceftriaxone Sodium (ROCEphine 1G INJ) 1 gm Q12H IVPB 08/24/25 13:30 09/03/25 13:29 08/25/25 02:29 1 GM Dextrose/Sodium Chloride 1,000 ml @ 0 mls/hr AD IV 08/24/25 14:00 08/24/25 20:50 DC Insulin Glargine (LANtus 100 UNITS/ML 10 ML VIAL) 10 units BID@0730,2100 SQ 08/25/25 07:30 09/24/25 07:29 Insulin Human Regular (humuLIN R 100 UNIT/ML 3ML) INSULIN SLIDING SCAL... ACHS SQ 08/25/25 07:30 09/24/25 07:29 Insulin Human Regular 100 unit/ Sodium Chloride 101 ml @ 0 mls/hr PROTOCOL IV 08/24/25 14:00 08/24/25 20:50 DC 08/24/25 17:32 0 MLS/HR Iron Sucrose 300 mg/Sodium Chloride 250 ml @ 83 mls/hr DAILY IV 08/25/25 09:00 08/27/25 10:00 08/25/25 09:30 83 MLS/HR Lactated Ringer's 1,000 ml @ 150 mls/hr Q6H40M IV 08/24/25 21:00 09/23/25 20:59 08/25/25 04:09 150 MLS/HR Magnesium Sulfate 50 ml @ 0 mls/hr PROTOCOL IV 08/24/25 14:00 09/23/25 13:59 08/25/25 06:18 25 MLS/HR Pantoprazole Sodium (PROTonix 40MG INJ) 40 mg Q12H IVP 08/24/25 13:30 09/23/25 13:29 08/25/25 02:29 40 MG Phenazopyridine HCl (PYRIdium HCL 200 MG TAB) 200 mg Q8H PRN PO OTHER [SEE ORDER COMMENTS] 08/24/25 22:00 08/24/25 22:05 DC Potassium Chloride 20 meq/ Sodium Chloride 1,010 ml @ 0 mls/hr PROTOCOL IV 08/24/25 14:00 08/24/25 20:50 DC Potassium Chloride/Dextrose/ Sod Cl 1,000 ml @ 0 mls/hr AD IV 08/24/25 14:00 08/24/25 20:50 DC 08/24/25 16:10 150 MLS/HR Potassium Chloride 100 ml @ 100 mls/hr AD PRN IV POTASSIUM PROTOCOL 08/24/25 14:00 09/23/25 13:59 Potassium Chloride 100 ml @ 0 mls/hr PROTOCOL PRN IV DKA POTASSIUM REPLACEMENT 08/24/25 14:00 08/24/25 20:50 DC Potassium Chloride (K-Dur/Klor-Con 20meq) 20 meq AD PRN PO POTASSIUM PROTOCOL 08/24/25 14:00 09/23/25 13:59 08/24/25 14:01 20 MEQ Potassium Chloride (KCl 10% Elixir 20meq/15ml) 20 meq AD PRN PO POTASSIUM PROTOCOL 08/24/25 14:00 09/23/25 13:59 08/25/25 06:18 20 MEQ Sodium Chloride 1,000 ml @ 75 mls/hr [id number] IV 08/24/25 13:30 08/24/25 13:34 DC Sodium Chloride 1,000 ml @ 75 mls/hr [id number] IV 08/24/25 13:30 08/24/25 14:11 DC 08/24/25 13:59 75 MLS/HR Sodium Chloride 1,000 ml @ 200 mls/hr PROTOCOL IV 08/24/25 14:00 08/24/25 20:50 DC Thiamine HCl (Vitamin B-1) 100 mg Q24H IVP 08/24/25 13:30 09/23/25 13:29 08/24/25 13:59 100 MG Vitamin B Complex/ Vit C/Folic Acid (Nephrovite Tablet) 1 cap DAILY PO 08/25/25 09:00 08/25/25 08:19 DC Vitamin B Complex/ Vit C/Folic Acid (Nephrovite Tablet) 1 cap DAILY PO 08/25/25 09:00 09/24/25 08:59 08/25/25 09:30 1 [facility] / RADIOLOGY: [facility] [address] [place] [address] IMAGING REPORT Signed PATIENT: RORY GARCIA MR#: [id number] : 1960 SEX: F AGE: 65 LOCATION: [facility] ORDER 27 STATUS: ADM IN [facility] REPORT#: [id number] SERVICE 24 REASON: nausea/ vomiting x 3 days, UTI, CARY ORDERING PHYSICIAN: EFRAIN STACY MD PROCEDURE: ABD PEL WO - CT ABDOMEN/PELVIS W/O CONTRAST EXAM: CT Abdomen and Pelvis Without IV Contrast. CLINICAL HISTORY: Nausea/vomiting ??? 3 days, UTI, CARY. TECHNIQUE: Axial computed tomography images of the abdomen and pelvis were obtained without intravenous contrast. Multiplanar reformats were reviewed. CONTRAST: No IV contrast administered. DOSE SCAN DETAILS: No. Protocol # of Scans kVp CTDIvol (mGy) DLP (mGy???cm) 1 DualScano 1 120 ? 2 DualScano 1 120 ? 3 Helical 1 120 7.00 (Body) 376.90 (Body) Radiation Dose (From Helical Acquisition): CTDIvol: 7.00 mGy DLP: 376.90 mGy???cm COMPARISON: None provided. FINDINGS: LUNG BASES: Clear. No pleural effusion. LIVER: Unremarkable. GALLBLADDER AND BILE DUCTS: Surgically absent gallbladder. No intrahepatic or extrahepatic biliary dilatation. PANCREAS: Unremarkable. SPLEEN: Normal size and attenuation. ADRENAL GLANDS: Unremarkable. KIDNEYS, URETERS, AND BLADDER: Left renal calculus (0.5 cm) in the upper pole. No hydronephrosis or hydroureter. Urinary bladder unremarkable. STOMACH AND BOWEL: Uncomplicated colonic diverticulosis. No bowel wall thickening, obstruction, or inflammatory changes. Sliding hiatus hernia measuring 2.7 ??? 1.2 cm. APPENDIX: Not dilated; no periappendiceal inflammation. PERITONEUM: No free fluid or free air. ABDOMINAL WALL: Fascial defect at umbilical region measuring 1.5 cm containing fat???suggestive of a small fat-containing umbilical hernia. LYMPH NODES: No abnormally enlarged lymph nodes. REPRODUCTIVE ORGANS: Surgically absent uterus. Adnexal regions unremarkable. VASCULATURE: Aortoiliac vessels normal in calibre. No aneurysm. BONES: Degenerative thoracolumbar spondylosis. Grade I anterolisthesis of L3 over L4 secondary to facet arthropathy and pars defects. Loss of disc height at T10???T11 with endplate irregularities. No acute fracture. IMPRESSION: 1. Left renal calculus (0.5 cm) in the upper pole, without hydronephrosis or hydroureter. 2. Grade I anterolisthesis of L3 over L4 secondary to facet arthropathy and pars defects. 3. Degenerative thoracolumbar spondylosis, including loss of disc height at T10-T11 with endplate irregularities. No acute fracture. 4. Small fat-containing umbilical hernia, with fascial defect measuring 1.5 cm. 5. Sliding hiatus hernia (2.7 ??? 1.2 cm). 6. Uncomplicated colonic diverticulosis. 7. Surgically absent gallbladder and uterus. No intrahepatic or extrahepatic biliary dilatation. /[place] DICTATED BY: ESTEFANY BROWN MD DATE: 08/24/251621 ELECTRONICALLY SIGNED BY: ESTEFANY BROWN MD DATE: 08/24/251621 [place] [address] [address] IMAGING REPORT Signed PATIENT: RORY GARCIA MR#: [id number] : 1960 SEX: F AGE: 65 LOCATION: [facility] ORDER 1051 STATUS: REG REPORT#: [id number] SERVICE 1050 REASON: cp ORDERING PHYSICIAN: KAREN SANCHEZ MD PROCEDURE: CXR1VW - CHEST 1VW EXAM: CR Chest, 1 View. CLINICAL HISTORY: cp COMPARISON: None provided. FINDINGS: LUNGS: There is no mass, infiltrate, or acute pulmonary abnormality. PLEURAL SPACES: No evidence of pleural effusion or pneumothorax. MEDIASTINUM: The cardiomediastinal silhouette is within normal limits. BONES: No aggressive appearing osseous lesion seen. IMPRESSION: No acute cardiopulmonary pathology is evident. /[place] DICTATED BY: OLIMPIA HORN Jr., MD DATE: 08/24/251355 ELECTRONICALLY SIGNED BY: OLIMPIA HORN Jr., MD DATE: 08/24/251355 [place] [address] IMAGING REPORT Signed PATIENT: RORY GARCIA MR#: [id number] : 1960 SEX: F AGE: 65 LOCATION: [facility] ORDER 1328 STATUS: ADM IN REPORT#: [id number] SERVICE REASON: weakness x 1 day ORDERING PHYSICIAN: EFRAIN STACY MD PROCEDURE: HEAD WO - CT HEAD/BRAIN W/O CONTRAST CT OF THE BRAIN WITHOUT CONTRAST CLINICAL INDICATION: Weakness for 1 day TECHNIQUE: Multiple contiguous axial CT images were obtained through the brain without the administration of intravenous contrast. Coronal and sagittal reconstructions were also obtained. COMPARISON: None available FINDINGS: The ventricular system and cortical sulci demonstrate a normal size and configuration for the patients age. There is patchy hypoattenuation of the periventricular matter bilaterally consistent with microangiopathic ischemic disease. There are no extra-axial collections, mass effect, or midline shift. The basal cisterns are patent. The pimentel-white matter differentiation is preserved. The midline structures and cervicomedullary junction are unremarkable. There is no evidence of acute intracranial hemorrhage or areas of acute territorial infarction. Vascular calcification is present. The calvarium is unremarkable in appearance. No suspicious lytic or sclerotic osseous lesions are seen. The visualized portions of the sinuses are well aerated. The mastoid air cells are well pneumatized and well aerated. The visualized orbital structures are unremarkable. IMPRESSION: 1. No CT evidence of an acute intracranial process. 2. 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 /[place] DICTATED BY: MARCELLE OVIEDO MD DATE: 08/24/251525 ELECTRONICALLY SIGNED BY: MARCELLE OVIEDO MD DATE: 08/24/251525 ASSESSMENT: Suspected euglycemic DKA likely provoked by Farxiga use as outpatient, POA Acute kidney injury, POA Metabolic acidosis with compensated respiratory alkalosis, POA Acute on chronic iron deficiency anemia, POA Urinary Tract infection, POA Moderate hypokalemia, POA Rule out chronic GI bleeding, POA Prior history of gastric ulcer, POA History of hemorrhoids, POA Type 2 diabetes mellitus, POA Hypertension, POA Hyperlipidemia, POA Thrombocytosis, POA PLAN: Suspected euglycemic DKA likely provoked by Farxiga use as outpatient, POA * On presentation sodium of 138, potassium 2.9, bicarb is 19, BUN of 17 , creatinine 2.6, blood ketone of 1.5, blood glucose of 179. [id number]-6.2 * Potassium was replaced as per protocol trends- 2.9>3.8>3.4>3.6 * ABG showed pH of 7.38, pCO2 of 27, bicarb of 15, lactic acid of one. Urine Ketones-5 * Farxiga was discontinued. * Received oral potassium supplementation and once potassium crossed greater than 3.3, low dose insulin drip was started. * Patient was on insulin drip until 8pm of 08/24/25, and was given 10 units of lantus. Later she was started on Ringer Lactate with Q4 glucose monitoring. * Will continue on lantus 10 units, with regular glucose monitoring. Metabolic acidosis with compensated respiratory alkalosis, POA * ABG showed pH of 7.38, pCO2 of 27, bicarb of 15, lactic acid of one with compensated respiratory alkalosis * Anion gap has dropped down to 8mEq/L today from 18mEq/L during admission. Patient was downgraded from ICU to Med/surg floors. * Will continue to monitor with daily labs. Acute kidney injury, POA * BMP on 08/24/25 showed sodium of 138, potassium 2.9, bicarb is 19, BUN of 17 , creatinine 2.6, GFR-31. * Patient was started on IV hydration. Losartan was held from 08/24/25. Bactrim was held due to likely contributing towards the CARY. * BUN trends 15>11, Cr-2.6>1.6>1.0 GFR-31>36>63 * Will continue to monitor with daily labs. Urinary Tract infection, POA * Urinalysis showed cloudy appearance, Urine protein - 50, Urine occult blood- Moderate, Urine leukocyte esterase-75, Urine WBC-11-25. * Bactrim was held. Started the patient on Rocephin twice daily (day2). * WBC trends 5.9>5.6 * Urine culture was ordered, pending results. * Will continue to monitor with daily labs. Acute on chronic iron deficiency anemia, POA: * Hb trends-7.4>6.9>8.4>7.6. One unit of leukocyte reduced RBC was transfused on 08/24/25. * Iron panel was ordered, Iron - 13, TIBC-456, %saturation-2.8, Ferritin-8 * Will start patient on IV iron sucrose infusion. * H&H will be monitored closely. Thrombocytosis, POA * Platelets trends 760>568. * Thrombocytosis likely reactive from underlying iron deficiency anemia. * Will continue to monitor with daily labs. ATTESTATION BY PHYSICIAN I have seen and examined the patient. I reviewed the documentation, medical decision making, and treatment plan as noted by the resident physician above. I agree with the findings and plan of care. KENJI SHI MD, SHAJI MD Aug 25, 2025 15:19
--- NOTE | 2025-08-25 16:08 | CONS ---
CONSULT NOTE: Endocrinology Consult Chief complaint: dizziness, weakness Reason for consult: ? euglycemic dka and dm-2 DOS: 08/25/25 HISTORY OF PRESENT ILLNESS: This is a 65-year-old female with underlying history of chronic anemia, history of iron deficiency, prior history of GI bleed, hemorrhoids, hypertension, type 2 diabetes mellitus, history of gastric ulcer who presented to the ER for further evaluation of dizziness, generalized weakness, poor oral intake with nausea and vomiting. Son reports that patient was recently diagnosed with urinary tract infection and was started on outpatient treated with oral Bactrim. She has been holding Farxiga for last 10 days due to UTI. She has been having poor oral intake, some suprapubic discomfort. Today, she was having shortness of breath with exertion and tachypnea, she was feeling dizzy and felt lightheaded. Symptoms have been nonresolving prompting her to come to the ER for further evaluation. Patient previously has been hospitalized in [facility] in 06/2024 when she had hematochezia. She reports having previous history of blood transfusion as well. She had a upper endoscopy in in 06/2024 which showed nonbleeding gastric ulcer. Patient also has a history of hemorrhoids. She denies having hematemesis, hematochezia or melena. Son has noticed that patient was having some blood in the urine with her recent UTI. She is currently not taking iron supplementation. Patient denies any previous history of chronic kidney disease. She has been a diabetic for about one year and has been on Farxiga chronically but off for 10 days. On presentation, patient was noted to be afebrile with T-max of 98.1 F, heart rate of 94, blood pressure 109/54. Labs on presentation showed WBC count of 5900, hemoglobin 7.4, MCV of 66.4, platelet count of 191380. BMP showed sodium of 138, potassium 2.9, bicarb is 19, BUN of 17 , creatinine 2.6, blood ketone of 1.5, blood glucose of 179. X-ray showed no acute infiltrates. ABG showed pH of 7.38, pCO2 of 27, bicarb of 15, lactic acid of one. REVIEW OF SYSTEMS CONSTITUTIONAL: poor oral intake, malaise, fatigue NEUROLOGICAL: Denies headache, amaurosis fugax, motor weakness, sensory deficit, vertigo/spinning sensation, gait abnormalities, or tremors. ENT: No hearing loss, otalgia, otorrhea, rhinitis, rhinorrhea, hoarseness, or sore throat. CARDIOVASCULAR: Denies any exertional angina, dyspnea on exertion, orthopnea, paroxysmal nocturnal dyspnea, palpitations, life-threatening arrhythmias, claudication. PULMONARY: Denies any shortness of breath, cough, phlegm/sputum, hemoptysis, pl euritic chest pain. SLEEP: Denies morning headaches, daytime somnolence or napping. Denies difficulty falling asleep, staying asleep, waking from sleep. Denies knowledge of snoring. GASTROINTESTINAL: nausea and vomiting, some suprapubic discomfort GENITOURINARY: Denies frequency, urgency, nocturia, hematuria or incontinence (Storage/Irritative symptoms.) Low urinary stream, straining to void, urinary intermittency or hesitancy, splitting of the voiding stream, terminal dribbling. ENDOCRINOLOGIC: Denies polyuria, polydipsia, polyphagia or heat/cold intolerances. HEMATOLOGIC: Denies thrombophilia/previous clots, or coagulopathy/bleeding disorders. ONCOLOGIC: Denies personal history of malignancy. DERMATOLOGIC: Denies rashes or pruritus. PSYCHIATRIC: Denies any suicidal or homicidal ideation. Denies hallucinations. PAST MEDICAL HISTORY: Hypertension, hyperlipidemia, type 2 diabetes mellitus maintained on outpatient treatment with Farxiga, prior history of UTI, history of chronic iron deficiency anemia, prior history of hemorrhoids with gastric ulcer disease PAST SURGICAL HISTORY: Reports having had previous history of EGD in 06/2024, history of colonoscopy previously, history of cholecystectomy, history of hysterectomy, prior history of right shoulder rotator cuff surgery PAST SOCIAL HISTORY: Denies history of active smoking or alcohol consumption, resides alone at home, typically she is independent with ADLs and IADLs FAMILY HISTORY: Denies pertinent family history Allergies: No known drug allergies Medications: Farxiga 10 mg daily, losartan 50 mg twice daily, patient has been started recently on Bactrim for treatment of urinary tract infection Coded Allergies: No Known Drug Allergies (Verified Allergy, Unknown, 06/18/24) PHYSICAL EXAM: GENERAL APPEARANCE: The patient is awake, alert, and oriented, in no acute cardiopulmonary distress. NEUROLOGICAL: Cranial nerves II-XII grossly intact. Motor is 5/5 in bilateral upper and lower extremities proximal to distal. No sensory deficits. HEENT: Face is symmetric. Pupils are equal and reactive. Extraocular movements are intact. NECK: Supple. No JVD. No thyromegaly. No submental, submandibular, pre-/ postauricular, occipital or supraclavicular lymphadenopathy. CHEST: Normal chest expansion. No Telemetry. LUNGS: Absence of any rales, rhonchi or any wheezing. CARDIOVASCULAR: Regular. S1 and S2 normal. No appreciable rubs, murmurs or gallops. ABDOMEN: Soft, nontender, and nondistended. There is no rebound, voluntary guarding, or rigidity. mild suprapubic discomfort : Deferred. No Pandey. EXTREMITIES: Non-edematous and not cyanotic. No clubbing. Good capillary refill. SKIN: No skin breakdown. DIAGNOSTICS / RADIOLOGY: SERVICE REASON: weakness x 1 day ORDERING PHYSICIAN: EFRAIN STACY MD PROCEDURE: HEAD WO - CT HEAD/BRAIN W/O CONTRAST CT OF THE BRAIN WITHOUT CONTRAST CLINICAL INDICATION: Weakness for 1 day TECHNIQUE: Multiple contiguous axial CT images were obtained through the brain without the administration of intravenous contrast. Coronal and sagittal reconstructions were also obtained. COMPARISON: None available FINDINGS: The ventricular system and cortical sulci demonstrate a normal size and configuration for the patients age. There is patchy hypoattenuation of the periventricular matter bilaterally consistent with microangiopathic ischemic disease. There are no extra-axial collections, mass effect, or midline shift. The basal cisterns are patent. The pimentel-white matter differentiation is preserved. The midline structures and cervicomedullary junction are unremarkable. There is no evidence of acute intracranial hemorrhage or areas of acute territorial infarction. Vascular calcification is present. The calvarium is unremarkable in appearance. No suspicious lytic or sclerotic osseous lesions are seen. The visualized portions of the sinuses are well aerated. The mastoid air cells are well pneumatized and well aerated. The visualized orbital structures are unremarkable. IMPRESSION: 1. No CT evidence of an acute intracranial process. 2. 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 /[place] DICTATED BY: MARCELLE OVIEDO MD DATE: 08/24/25 1526 ELECTRONICALLY SIGNED ASSESSMENT: euglycemic DKA was suspected by Farxiga use as outpatient, POA Home diabetic regimen: off farxiga 10 mg for 2 weeks Hba1c 7.2% my suspicion is low for euglycemic dka as she is off farxiga for 10 days. reports UTI due to farxiga. Type 2 diabetes mellitus, POA Acute kidney injury, POA improving Metabolic acidosis with compensated respiratory alkalosis, POA Acute on chronic iron deficiency anemia, POA Urinary Tract infection, POA Moderate hypokalemia, POA Rule out chronic GI bleeding, POA Prior history of gastric ulcer, POA History of hemorrhoids, POA Hypertension, POA Hyperlipidemia, POA Thrombocytosis, POA Urinary tract infection, POA PLAN: continue Lantus 10 units daily and adjust for fasting glucose. decrease high dose ssi to low dose sliding scale insulin. Monitor glucose q x 6 hourly. Continue carb consistent diet. Keep glucose less than 180 mg/dl. Patient was recommended to stop farxiga due to recurrent UTI but refused. she wants to follow up with pcp for diabetic meds change. Thanks for allowing me to participate in patient care and will continue to follow up. Vital Signs 08/25/25 08/25/25 08:00 15:42 Temp 98.1 Pulse 81 Resp 18 B/P (MAP) 128/65 Pulse Ox 98 O2 Delivery Room Air O2 Flow Rate 0 FiO2 21 Hematology Labs: Test 08/25/25 04:26 08/24/25 13:27 08/24/25 10:57 Range/Units White Blood Count 5.6 4.8-10.8 K/uL Red Blood Count 3.94 L 4.00-5.50 MIL/uL Hemoglobin 7.6 L 12.0-16.0 g/dL Hematocrit 27.1 L 36-48 % Mean Corpuscular Volume 68.8 L 79-99 fL Mean Corpuscular Hemoglobin 19.3 L 27.0-33.0 pg Mean Corpuscular Hemoglobin Concent 28.0 L 32.0-36.0 g/dL Red Cell Distribution Width 21.8 H 11.0-15.5 % Platelet Count 568 #H 130-400 K/uL Mean Platelet Volume 8.8 7.5-10.5 fL Immature Granulocyte % (Auto) 0.4 0-1 % Neutrophils (%) (Auto) 49.9 40.0-77.0 % Lymphocytes (%) (Auto) 33.6 21.0-51.0 % Monocytes (%) (Auto) 10.3 3.0-13.0 % Eosinophils (%) (Auto) 4.6 0.0-8.0 % Basophils (%) (Auto) 1.2 0.0-5.0 % Neutrophils # (Auto) 2.8 1.8-7.7 K/uL Lymphocytes # (Auto) 1.9 1.0-4.8 K/uL Monocytes # (Auto) 0.6 0.1-1.0 K/uL Eosinophils # (Auto) 0.26 0.00-0.70 K/uL Basophils # (Auto) 0.07 0.00-0.20 K/uL Absolute Immature Granulocyte (auto 0.02 0-1 K/uL Nucleated Red Blood Cells 0.0 0.0-0.19 % Erythrocyte Sedimentation Rate 16 0-30 MM/HR Platelet Morphology Comment INCREASED Red Blood Cell Morphology See comments Chemistry Labs: Test 08/25/25 15:10 08/25/25 09:18 08/25/25 04:26 08/24/25 13:27 Range/Units Whole Blood Glucose 122 H 70-110 MG/DL Sodium Level 140 136-145 mmol/L Potassium Level 3.9 3.5-5.1 mmol/L Chloride Level 110 101-111 mmol/L Carbon Dioxide Level 22 21-32 mmol/L Blood Urea Nitrogen 9 7-18 mg/dL Creatinine 0.9 0.5-1.0 mg/dL Glomerular Filtration Rate Calc 71 >90 mL/min Random Glucose 93 70-105 mg/dL Total Calcium 8.4 L 8.5-10.1 mg/dL Phosphorus Level 2.6 2.5-4.9 mg/dL Magnesium Level 1.70 L 1.80-2.40 mg/dL Total Bilirubin 0.2 0.2-1.0 mg/dL Aspartate Amino Transf (AST/SGOT) 19 10-37 U/L Alanine Aminotransferase (ALT/SGPT) 16 12-78 U/L Alkaline Phosphatase 70 50-136 U/L Total Protein 5.8 L 6.0-8.3 g/dL Albumin 3.0 L 3.5-5.0 g/dL Whole Blood Ketones Quantitative 1.5 H 0.0-0.6 mmol/L Lactic Acid Level 1.6 0.8-2.5 mmol/L Direct Bilirubin 0.1 0.0-0.3 mg/dL Test 08/24/25 13:24 08/24/25 10:57 Range/Units Hemoglobin A1c 7.2 H 4.0-6.0 % Estimated Average Glucose (eAG) 160 H 70-126 mg/dL Iron Level 13 L 50-170 mcg/dL Total Iron Binding Capacity 456 H 250-450 mcg/dL Percent Iron Saturation 2.8 L 22-44 % Ferritin 8 L 15-150 ng/mL Lactate Dehydrogenase 241 H 81-234 U/L C-Reactive Protein, Quantitative 7.20 H 0.5-3.0 mg/L Procalcitonin < 0.05 L 0.05-0.5 ng/mL Thyroid Stimulating Hormone (TSH) 0.72 # 0.36-3.74 uIU/mL Total Creatine Kinase 108 21-232 U/L Troponin I High Sensitivity 11 4-50 ng/L Coagulation Labs: Test 08/24/25 10:57 Range/Units Prothrombin Time 11.0 9.6-11.6 SEC Prothromb Time International Ratio 1.04 0.85-1.15 Activated Partial Thromboplast Time 25.8 L 26.3-35.5 SEC Current Medications Medications (Trade) Dose Ordered Sig/Sylvester Route Start Time Stop Time Status Last Admin Dose Admin Ceftriaxone Sodium (ROCEphine 1G INJ) 1 gm Q12H IVPB 08/24/25 13:30 09/03/25 13:29 08/25/25 14:50 1 GM Dextrose/Sodium Chloride 1,000 ml @ 0 mls/hr AD IV 08/24/25 14:00 08/24/25 20:50 DC Insulin Glargine (LANtus 100 UNITS/ML 10 ML VIAL) 10 units BID@0730,2100 SQ 08/25/25 07:30 09/24/25 07:29 Insulin Human Regular (humuLIN R 100 UNIT/ML 3ML) INSULIN SLIDING SCAL... ACHS SQ 08/25/25 07:30 09/24/25 07:29 Insulin Human Regular 100 unit/ Sodium Chloride 101 ml @ 0 mls/hr PROTOCOL IV 08/24/25 14:00 08/24/25 20:50 DC 08/24/25 17:32 0 MLS/HR Iron Sucrose 300 mg/Sodium Chloride 250 ml @ 83 mls/hr DAILY IV 08/25/25 09:00 08/27/25 10:00 08/25/25 09:30 83 MLS/HR Lactated Ringer's 1,000 ml @ 150 mls/hr [id number] IV 08/24/25 21:00 09/23/25 20:59 08/25/25 04:09 150 MLS/HR Magnesium Sulfate 50 ml @ 0 mls/hr PROTOCOL IV 08/24/25 14:00 09/23/25 13:59 08/25/25 06:18 25 MLS/HR Pantoprazole Sodium (PROTonix 40MG INJ) 40 mg Q12H IVP 08/24/25 13:30 09/23/25 13:29 08/25/25 14:50 40 MG Potassium Chloride 20 meq/ Sodium Chloride 1,010 ml @ 0 mls/hr PROTOCOL IV 08/24/25 14:00 08/24/25 20:50 DC Potassium Chloride/Dextrose/ Sod Cl 1,000 ml @ 0 mls/hr AD IV 08/24/25 14:00 08/24/25 20:50 DC 08/24/25 16:10 150 MLS/HR Sodium Chloride 1,000 ml @ 75 mls/hr [id number] IV 08/24/25 13:30 08/24/25 13:34 DC Sodium Chloride 1,000 ml @ 75 mls/hr [id number] IV 08/24/25 13:30 08/24/25 14:11 DC 08/24/25 13:59 75 MLS/HR Sodium Chloride 1,000 ml @ 200 mls/hr PROTOCOL IV 08/24/25 14:00 08/24/25 20:50 DC Thiamine HCl (Vitamin B-1) 100 mg Q24H IVP 08/24/25 13:30 09/23/25 13:29 08/25/25 14:50 100 MG Vitamin B Complex/ Vit C/Folic Acid (Nephrovite Tablet) 1 cap DAILY PO 08/25/25 09:00 08/25/25 08:19 DC Vitamin B Complex/ Vit C/Folic Acid (Nephrovite Tablet) 1 cap DAILY PO 08/25/25 09:00 09/24/25 08:59 08/25/25 09:30 1 MARCO ANTONIO VELAZQUEZ MD Aug 25, 2025 16:08
[2025-08-26] VITALS (10 sets, daily range): BP systolic 130–158; BP diastolic 53–83; PULSE 65–86; RESP 15–20; TEMP 97.9–98.6; O2SAT 95–97
[2025-08-26 05:47] LABS: NUCLEATED RED BLOOD CELLS 0.0 % (0.0-0.19); PLATELET COUNT (AUTO) 521 K/uL (130-400); RED BLOOD CELL COUNT(AUTO) 4.05 MIL/uL (4.00-5.50); RED CELL DISTRIBUTION WIDTH 22.4 % (11.0-15.5); WHITE BLOOD COUNT (AUTO) 4.3 K/uL (4.8-10.8)
[2025-08-26 06:08] LABS: ASPARTATE AMINOTRANSFERASE 18.0 U/L (10-37); CREATININE 0.6 mg/dL (0.5-1.0); GLOMERULAR FILTR. RATE CALC 100.0 mL/min (>90); GLUCOSE,RANDOM 94.0 mg/dL (70-105); PHOSPHORUS 2.8 mg/dL (2.5-4.9); SODIUM SERUM 142.0 mmol/L (136-145); TOTAL PROTEIN, SERUM 5.9 g/dL (6.0-8.3); UREA NITROGEN, BLOOD 5.0 mg/dL (7-18)
[2025-08-26 06:29] LABS: BASOPHILS % (MANUAL) 1 % (0-2); EOSINOPHILS % (MANUAL) 4 % (1-6); LYMPHOCYTES % (MANUAL) 23 % (22-44); MAN.DIFF COMMENT-IMPRESSION MANUAL DIFFERENTIAL; MONOCYTES % (MANUAL) 6 % (2-9); REACTIVE LYMPHOCYTES 5 % (0-0); SEGMENTED NEUTROPHILS % 61 % (40-70)
[2025-08-26 06:30] LABS: PLATELET MORPHOLOGY COMMENT SLIGHT INCREASED
--- NOTE | 2025-08-26 06:34 | PN ---
NEPHROLOGY NOTE SUBJECTIVE: This patient has multiple problems including acute renal failure, acidosis, and euglycemic ketoacidosis requiring insulin before, has been in ICU. Multiple other comorbidities. The patient has no other associated symptoms. No other aggravating or relieving factors. The patient has required insulin. The patient has anemia and UTI. Other systemic review is unchanged. The patient has required transfusion. REVIEW OF SYSTEMS: CONSTITUTIONAL: No fever, chills, or rigors. HEENT: With no headache, oral ulcers, sore throat, or difficulty swallowing. RESPIRATORY: No cough, expectoration, hemoptysis, pleuritic pain. CARDIOVASCULAR: No orthopnea or PND. GASTROINTESTINAL: Negative for nausea, vomiting, or diarrhea reported. GENITOURINARY: Negative for hematuria. DERMATOLOGICAL: With no rashes, pruritus, or skin lesion. ENDOCRINE: No polyuria, polydipsia, or polyphagia. PHYSICAL EXAMINATION: GENERAL: Pale, no other distress. VITAL SIGNS: Blood pressure is around 128/65, pulse 81, respiratory rate is 18, afebrile. HEENT: Head is atraumatic, normocephalic. Pupils are round and reactive. Sclerae are anicteric. Conjunctivae are not pale. Oral mucosa is not dry. NECK: Supple. No masses or bruits. Thyroid . CHEST: Shows equal thoracic percussion, note being resonant in all areas. CARDIAC: Regular rhythm. No rub, no S3 or S4. ABDOMEN: No guarding, tenderness. Bowel sounds present. No free fluid. NEUROLOGIC: Awake, alert, nonfocal. LABORATORY DATA: Labs have shown low hemoglobin of 7.6. BUN of 9, creatinine is 0.9. Old records reviewed. Hematology reviewed. The patient has otherwise unchanged review. IMAGING STUDIES: Imaging studies are reviewed. PROBLEMS: The patient has: * Acute renal failure. * Electrolyte problem. * The patient does have a history of type 2 diabetes. * Euglycemic ketoacidosis. * Hypertension. * Hyperlipidemia. * Anemia. * Hemorrhoid. * Gastric ulcer. PLAN: The patient remains in the ICU. Continued monitoring. Insulin was required. Farxiga or Jardiance should be stopped. Intake, output, weight, and overall status to be monitored. Abdominopelvic CT reviewed. The patient is seen several times in ICU and condition is critical, guarded. I have discussed with other team members and will follow up closely. Anemia, renal function will be monitored. Iron level if low, will need IV iron replacement and meanwhile, follow up closely. Condition is critical, guarded. Magnesium and potassium replacement as needed as the patient was hypokalemic before. Condition is guarded. Thank you for this patient. TID: [id number] RECEIPT: [id number]
--- NOTE | 2025-08-26 11:29 | PN ---
[facility] PROGRESS NOTE Date of Service: Aug 26, 2025 Time of Service: 11:17 This is a 65-year-old female with underlying history of chronic anemia, history of iron deficiency, prior history of GI bleed, hemorrhoids, hypertension, type 2 diabetes mellitus maintained on outpatient treatment with SGLT2 inhibitor with Farxiga, history of gastric ulcer who presented to the ER for further evaluation of dizziness, generalized weakness, poor oral intake with nausea and vomiting. Symptoms have been ongoing since yesterday. Son reports that patient was recently diagnosed with urinary tract infection and was started on outpatient treated with oral Bactrim. She has been holding Farxiga for last 2-3 days due to UTI. She has been having poor oral intake, some suprapubic discomfort. Today, she was having shortness of breath with exertion and tachypnea, she was feeling dizzy and felt lightheaded. Symptoms have been nonresolving prompting her to come to the ER for further evaluation. Patient previously has been hospitalized [place] [facility] [place] when she had hematochezia. She reports having previous history of blood transfusion as well. She had a upper endoscopy in in 06/2024 which showed nonbleeding gastric ulcer. Patient also has a history of hemorrhoids. She denies having hematemesis, hematochezia or melena. Son has noticed that patient was having some blood in the urine with her recent UTI. She is currently not taking iron supplementation. Patient denies any previous history of chronic kidney disease. She has been a diabetic for about one year and has been on Farxiga chronically. On presentation, patient was noted to be afebrile with T-max of 98.1 F, heart rate of 94, blood pressure 109/54. Labs on presentation showed WBC count of 5900, hemoglobin 7.4, MCV of 66.4, platelet count of 335779. BMP showed sodium of 138, potassium 2.9, bicarb is 19, BUN of 17 , creatinine 2.6, blood ketone of 1.5, blood glucose of 179. X-ray showed no acute infiltrates. ABG showed pH of 7.38, pCO2 of 27, bicarb of 15, lactic acid of one. SUBJECTIVE: 08/25/25: Patient was evaluated in room 216. Patient reports feeling better. today her anion gap has dropped down to 8mEq/L today from 18mEq/L during admission. Blood glucose level today was 99, so the insulin drip was stopped and patient was downgraded from ICU to Med/surg floors. Labs today Hb-7.6, Albumin 3.0 and ABG from 08/24/25 was pH-7.38, Pco2-27, PO2-94.2, Hco3-15.6. 08/26/25: Patient was evaluated in room 216. Patient reports feeling fatigued and has generalized weakness. her HB today was 8.0. GI was consulted to evaluate for her anemia. She has H/O nonbleeding gastric ulcers, hemorrhoids. She is currently on IV Venofer. Blood glucose levels today was 99. she is currently on 10 units insulin lantus, and as per endocrinology recommendations, she was advised to change from high dose to low dose insulin sliding scale. REVIEW OF SYSTEMS CONSTITUTIONAL: poor oral intake, malaise, fatigue NEUROLOGICAL: Denies headache, amaurosis fugax, motor weakness, sensory deficit, vertigo/spinning sensation, gait abnormalities, or tremors. ENT: No hearing loss, otalgia, otorrhea, rhinitis, rhinorrhea, hoarseness, or sore throat. CARDIOVASCULAR: Denies any exertional angina, dyspnea on exertion, orthopnea, paroxysmal nocturnal dyspnea, palpitations, life-threatening arrhythmias, claudication. PULMONARY: Denies any shortness of breath, cough, phlegm/sputum, hemoptysis, pleuritic chest pain. SLEEP: Denies morning headaches, daytime somnolence or napping. Denies difficulty falling asleep, staying asleep, waking from sleep. Denies knowledge of snoring. GASTROINTESTINAL: nausea and vomiting, some suprapubic discomfort GENITOURINARY: Denies frequency, urgency, nocturia, hematuria or incontinence (Storage/Irritative symptoms.) Low urinary stream, straining to void, urinary intermittency or hesitancy, splitting of the voiding stream, terminal dribbling. ENDOCRINOLOGIC: Denies polyuria, polydipsia, polyphagia or heat/cold intolerances. HEMATOLOGIC: Denies thrombophilia/previous clots, or coagulopathy/bleeding disorders. ONCOLOGIC: Denies personal history of malignancy. DERMATOLOGIC: Denies rashes or pruritus. PSYCHIATRIC: Denies any suicidal or homicidal ideation. Denies hallucinations. PHYSICAL EXAM: GENERAL APPEARANCE: The patient is awake, alert, and oriented, in no acute cardiopulmonary distress. NEUROLOGICAL: Cranial nerves II-XII grossly intact. Motor is 5/5 in bilateral upper and lower extremities proximal to distal. No sensory deficits. HEENT: Face is symmetric. Pupils are equal and reactive. Extraocular movements are intact. NECK: Supple. No JVD. No thyromegaly. No submental, submandibular, pre- /postauricular, occipital or supraclavicular lymphadenopathy. CHEST: Normal chest expansion. No Telemetry. LUNGS: Absence of any rales, rhonchi or any wheezing. CARDIOVASCULAR: Regular. S1 and S2 normal. No appreciable rubs, murmurs or gallops. ABDOMEN: Soft, nontender, and nondistended. There is no rebound, voluntary guarding, or rigidity. mild suprapubic discomfort : Deferred. No Pandey. EXTREMITIES: Non-edematous and not cyanotic. No clubbing. Good capillary refill. SKIN: No skin breakdown. Vital Signs (last 8hr) Date Time Temp Pulse Resp B/P (MAP) Pulse Ox O2 Delivery O2 Flow Rate FiO2 08/26/25 08:00 98.2 78 15 148/66 96 Room Air 08/26/25 07:14 65 18 N/A Room Air 21 08/26/25 03:45 98.4 86 20 140/73 94 Room Air LABS: Laboratory: Test 08/26/25 05:32 08/26/25 05:05 08/25/25 04:26 08/25/25 00:50 Range/Units White Blood Count 4.3 L 4.8-10.8 K/uL Red Blood Count 4.05 4.00-5.50 MIL/uL Hemoglobin 8.0 L 12.0-16.0 g/dL Hematocrit 28.2 L 36-48 % Mean Corpuscular Volume 69.6 L 79-99 fL Mean Corpuscular Hemoglobin 19.8 L 27.0-33.0 pg Mean Corpuscular Hemoglobin Concent 28.4 L 32.0-36.0 g/dL Red Cell Distribution Width 22.4 H 11.0-15.5 % Platelet Count 521 H 130-400 K/uL Mean Platelet Volume 8.5 7.5-10.5 fL Segmented Neutrophils % 61 40-70 % Lymphocytes % (Manual) 23 22-44 % Monocytes % (Manual) 6 2-9 % Eosinophils % (Manual) 4 1-6 % Basophils % (Manual) 1 0-2 % Nucleated Red Blood Cells 0.0 0.0-0.19 % Differential Comment MANUAL DIFFERENTIAL Reactive Lymphocytes 5 H 0-0 % White Cell Morphology Comment See comments Platelet Morphology Comment SLIGHT INCREASED Red Blood Cell Morphology See comments Sodium Level 142 136-145 mmol/L Potassium Level 3.4 L 3.5-5.1 mmol/L Chloride Level 111 101-111 mmol/L Carbon Dioxide Level 24 21-32 mmol/L Blood Urea Nitrogen 5 L 7-18 mg/dL Creatinine 0.6 0.5-1.0 mg/dL Glomerular Filtration Rate Calc 100 >90 mL/min Random Glucose 94 70-105 mg/dL Total Calcium 8.2 L 8.5-10.1 mg/dL Phosphorus Level 2.8 2.5-4.9 mg/dL Total Bilirubin 0.1 L 0.2-1.0 mg/dL Aspartate Amino Transf (AST/SGOT) 18 10-37 U/L Alanine Aminotransferase (ALT/SGPT) 16 12-78 U/L Alkaline Phosphatase 81 50-136 U/L Total Protein 5.9 L 6.0-8.3 g/dL Albumin 2.9 L 3.5-5.0 g/dL Whole Blood Glucose 89 70-110 MG/DL Immature Granulocyte % (Auto) 0.4 0-1 % Neutrophils (%) (Auto) 49.9 40.0-77.0 % Lymphocytes (%) (Auto) 33.6 21.0-51.0 % Monocytes (%) (Auto) 10.3 3.0-13.0 % Eosinophils (%) (Auto) 4.6 0.0-8.0 % Basophils (%) (Auto) 1.2 0.0-5.0 % Neutrophils # (Auto) 2.8 1.8-7.7 K/uL Lymphocytes # (Auto) 1.9 1.0-4.8 K/uL Monocytes # (Auto) 0.6 0.1-1.0 K/uL Eosinophils # (Auto) 0.26 0.00-0.70 K/uL Basophils # (Auto) 0.07 0.00-0.20 K/uL Absolute Immature Granulocyte (auto 0.02 0-1 K/uL Magnesium Level 1.70 L 1.80-2.40 mg/dL Urine Random Creatinine 161.31 H 30-135 mg/dL Urine Random Sodium 100 40-220 mmol/l Urine Random Potassium 24 L 25-125 mmol/L Urine Random Chloride 139 110-250 mmol/L Test 08/24/25 13:34 08/24/25 13:27 08/24/25 13:24 Range/Units Urine Color YELLOW YELLOW Urine Appearance CLOUDY H CLEAR Urine pH 5.5 5.0-8.0 Urine Specific Sawyer 1.033 H 1.001-1.031 Urine Protein 50 H NEGATIVE mg/dL Urine Glucose (UA) NEGATIVE NEGATIVE mg/dL Urine Ketones 5 H NEGATIVE mg/dL Urine Occult Blood MODERATE H NEGATIVE Urine Nitrate NEGATIVE NEGATIVE Urine Bilirubin 1 H NEGATIVE mg/dL Urine Urobilinogen 2.0 H 0.2-1.0 mg/dL Urine Leukocyte Esterase 75 H NEGATIVE Juvencio/uL Urine RBC 26-50 H 0-1 /HPF Urine WBC 11-25 H 0-1 /HPF Urine Squamous Epithelial Cells FEW 0-2 /HPF Urine Bacteria None None Seen /HPF Urine Osmolality 418 50-1200 mOsm/kg Erythrocyte Sedimentation Rate 16 0-30 MM/HR Whole Blood Ketones Quantitative 1.5 H 0.0-0.6 mmol/L Lactic Acid Level 1.6 0.8-2.5 mmol/L Direct Bilirubin 0.1 0.0-0.3 mg/dL Blood Gas Specimen Type Arterial Arterial Blood pH 7.382 7.350-7.450 Arterial Blood Partial Pressure CO2 27 L 32-45 mmHg Arterial Blood Partial Pressure O2 94.2 83.0-108.0 mmHg Arterial Blood HCO3 15.6 L 21.0-28.0 mmol/L Arterial Blood Oxygen Saturation 96.4 94.0-98.0 % Arterial Blood Base Excess -8.5 L -2.0-3.0 mmol/L Hemoglobin (Blood Gas) 7.7 L 12.0-16.0 g/dL Sodium (Blood Gas) 136 136-145 MMOL/L Bedside Potassium (Blood Gas) 3.0 *L 3.4-4.5 MMOL/L Bedside Chloride (Blood Gas) 107 98-107 MMOL/L Bedside Glucose (Blood Gas) 71 65-95 MG/DL Bedside Ionized Calcium (Blood Gas) 1.17 1.15-1.33 MMOL/L Bedside Lactic Acid (Blood Gas) 0.89 H 0.36-0.75 MMOL/L Blood Gas Temperature 37.0 35.5-37.0 CELSIUS Blood Gas Vent Mode RA ROOM AIR FiO2 21.0 % Blood Gas Specimen Comment RB Hemoglobin A1c 7.2 H 4.0-6.0 % Estimated Average Glucose (eAG) 160 H 70-126 mg/dL Iron Level 13 L 50-170 mcg/dL Total Iron Binding Capacity 456 H 250-450 mcg/dL Percent Iron Saturation 2.8 L 22-44 % Ferritin 8 L 15-150 ng/mL Lactate Dehydrogenase 241 H 81-234 U/L C-Reactive Protein, Quantitative 7.20 H 0.5-3.0 mg/L Procalcitonin < 0.05 L 0.05-0.5 ng/mL Thyroid Stimulating Hormone (TSH) 0.72 # 0.36-3.74 uIU/mL Current Medications Medications (Trade) Dose Ordered Sig/Sylvester Route PRN Reason Start Time Stop Time Status Last Admin Dose Admin Albuterol (DUOneb) 1 udvial Q6H PRN IH SHORTNESS OF BREATH 08/24/25 14:00 09/23/25 13:59 Ceftriaxone Sodium (ROCEphine 1G INJ) 1 gm Q12H IVPB 08/24/25 13:30 09/03/25 13:29 08/26/25 02:23 1 GM Dextrose/Sodium Chloride 1,000 ml @ 0 mls/hr AD IV 08/24/25 14:00 08/24/25 20:50 DC Insulin Glargine (LANtus 100 UNITS/ML 10 ML VIAL) 10 units BID@0730,2100 SQ 08/25/25 07:30 09/24/25 07:29 08/25/25 22:02 10 UNITS Insulin Human Regular (humuLIN R 100 UNIT/ML 3ML) INSULIN SLIDING SCAL... ACHS SQ 08/25/25 07:30 08/25/25 21:53 DC Insulin Human Regular (humuLIN R 100 UNIT/ML 3ML) INSULIN SLIDING SCAL... ACHS SQ 08/26/25 07:30 09/25/25 07:29 Insulin Human Regular 100 unit/ Sodium Chloride 101 ml @ 0 mls/hr PROTOCOL IV 08/24/25 14:00 08/24/25 20:50 DC 08/24/25 17:32 0 MLS/HR Iron Sucrose 300 mg/Sodium Chloride 250 ml @ 83 mls/hr DAILY IV 08/25/25 09:00 08/27/25 10:00 08/26/25 10:13 83 MLS/HR Lactated Ringer's 1,000 ml @ 150 mls/hr Q6H40M IV 08/24/25 21:00 09/23/25 20:59 08/25/25 17:27 150 MLS/HR Magnesium Sulfate 50 ml @ 0 mls/hr PROTOCOL IV 08/24/25 14:00 09/23/25 13:59 08/25/25 06:18 25 MLS/HR Pantoprazole Sodium (PROTonix 40MG INJ) 40 mg Q12H IVP 08/24/25 13:30 09/23/25 13:29 08/26/25 02:23 40 MG Phenazopyridine HCl (PYRIdium HCL 200 MG TAB) 200 mg Q8H PRN PO OTHER [SEE ORDER COMMENTS] 08/24/25 22:00 08/24/25 22:05 DC Potassium Chloride 20 meq/ Sodium Chloride 1,010 ml @ 0 mls/hr PROTOCOL IV 08/24/25 14:00 08/24/25 20:50 DC Potassium Chloride/Dextrose/ Sod Cl 1,000 ml @ 0 mls/hr AD IV 08/24/25 14:00 08/24/25 20:50 DC 08/24/25 16:10 150 MLS/HR Potassium Chloride 100 ml @ 100 mls/hr AD PRN IV POTASSIUM PROTOCOL 08/24/25 14:00 09/23/25 13:59 Potassium Chloride 100 ml @ 0 mls/hr PROTOCOL PRN IV DKA POTASSIUM REPLACEMENT 08/24/25 14:00 08/24/25 20:50 DC Potassium Chloride (K-Dur/Klor-Con 20meq) 20 meq AD PRN PO POTASSIUM PROTOCOL 08/24/25 14:00 09/23/25 13:59 08/26/25 08:09 20 MEQ Potassium Chloride (KCl 10% Elixir 20meq/15ml) 20 meq AD PRN PO POTASSIUM PROTOCOL 08/24/25 14:00 09/23/25 13:59 08/25/25 06:18 20 MEQ Sodium Chloride 1,000 ml @ 75 mls/hr [id number] IV 08/24/25 13:30 08/24/25 13:34 DC Sodium Chloride 1,000 ml @ 75 mls/hr [id number] IV 08/24/25 13:30 08/24/25 14:11 DC 08/24/25 13:59 75 MLS/HR Sodium Chloride 1,000 ml @ 200 mls/hr PROTOCOL IV 08/24/25 14:00 08/24/25 20:50 DC Thiamine HCl (Vitamin B-1) 100 mg Q24H IVP 08/24/25 13:30 09/23/25 13:29 08/25/25 14:50 100 MG Vitamin B Complex/ Vit C/Folic Acid (Nephrovite Tablet) 1 cap DAILY PO 08/25/25 09:00 08/25/25 08:19 DC Vitamin B Complex/ Vit C/Folic Acid (Nephrovite Tablet) 1 cap DAILY PO 08/25/25 09:00 09/24/25 08:59 08/26/25 09:55 1 [facility] RADIOLOGY: [place] [address] IMAGING REPORT Signed PATIENT: RORY GARCIA MR#: [id number] : 1960 SEX: F AGE: 65 LOCATION: [facility] ORDER 27 STATUS: [facility] REPORT#: [id number] SERVICE 24 REASON: nausea/ vomiting x 3 days, UTI, CARY ORDERING PHYSICIAN: EFRAIN STACY MD PROCEDURE: ABD PEL WO - CT ABDOMEN/PELVIS W/O CONTRAST EXAM: CT Abdomen and Pelvis Without IV Contrast. CLINICAL HISTORY: Nausea/vomiting ??? 3 days, UTI, CARY. TECHNIQUE: Axial computed tomography images of the abdomen and pelvis were obtained without intravenous contrast. Multiplanar reformats were reviewed. CONTRAST: No IV contrast administered. DOSE SCAN DETAILS: No. Protocol # of Scans kVp CTDIvol (mGy) DLP (mGy???cm) 1 DualScano 1 120 ? 2 DualScano 1 120 ? 3 Helical 1 120 7.00 (Body) 376.90 (Body) Radiation Dose (From Helical Acquisition): CTDIvol: 7.00 mGy DLP: 376.90 mGy???cm COMPARISON: None provided. FINDINGS: LUNG BASES: Clear. No pleural effusion. LIVER: Unremarkable. GALLBLADDER AND BILE DUCTS: Surgically absent gallbladder. No intrahepatic or extrahepatic biliary dilatation. PANCREAS: Unremarkable. SPLEEN: Normal size and attenuation. ADRENAL GLANDS: Unremarkable. KIDNEYS, URETERS, AND BLADDER: Left renal calculus (0.5 cm) in the upper pole. No hydronephrosis or hydroureter. Urinary bladder unremarkable. STOMACH AND BOWEL: Uncomplicated colonic diverticulosis. No bowel wall thickening, obstruction, or inflammatory changes. Sliding hiatus hernia measuring 2.7 ??? 1.2 cm. APPENDIX: Not dilated; no periappendiceal inflammation. PERITONEUM: No free fluid or free air. ABDOMINAL WALL: Fascial defect at umbilical region measuring 1.5 cm containing fat???suggestive of a small fat-containing umbilical hernia. LYMPH NODES: No abnormally enlarged lymph nodes. REPRODUCTIVE ORGANS: Surgically absent uterus. Adnexal regions unremarkable. VASCULATURE: Aortoiliac vessels normal in calibre. No aneurysm. BONES: Degenerative thoracolumbar spondylosis. Grade I anterolisthesis of L3 over L4 secondary to facet arthropathy and pars defects. Loss of disc height at T10???T11 with endplate irregularities. No acute fracture. IMPRESSION: 1. Left renal calculus (0.5 cm) in the upper pole, without hydronephrosis or hydroureter. 2. Grade I anterolisthesis of L3 over L4 secondary to facet arthropathy and pars defects. 3. Degenerative thoracolumbar spondylosis, including loss of disc height at T10-T11 with endplate irregularities. No acute fracture. 4. Small fat-containing umbilical hernia, with fascial defect measuring 1.5 cm. 5. Sliding hiatus hernia (2.7 ??? 1.2 cm). 6. Uncomplicated colonic diverticulosis. 7. Surgically absent gallbladder and uterus. No intrahepatic or extrahepatic biliary dilatation. /[place] DICTATED BY: ESTEFANY BROWN MD DATE: 08/24/251621 ELECTRONICALLY SIGNED BY: ESTEFANY BROWN MD DATE: 08/24/25 ASSESSMENT: Suspected euglycemic DKA likely provoked by Farxiga use as outpatient, POA Acute kidney injury, POA Metabolic acidosis with compensated respiratory alkalosis, POA Acute on chronic iron deficiency anemia, POA Urinary Tract infection, POA Moderate hypokalemia, POA Rule out chronic GI bleeding, POA Prior history of gastric ulcer, POA History of hemorrhoids, POA Type 2 diabetes mellitus, POA Hypertension, POA Hyperlipidemia, POA Thrombocytosis, POA PLAN: Suspected euglycemic DKA likely provoked by Farxiga use as outpatient, POA * On presentation sodium of 138, potassium 2.9, bicarb is 19, BUN of 17 , creatinine 2.6, blood ketone of 1.5, blood glucose of 179. [id number] * Potassium was replaced as per protocol trends- 2.9>3.8>3.4>3.6>3.4 * ABG showed pH of 7.38, pCO2 of 27, bicarb of 15, lactic acid of one. Urine Ketones-5 * Farxiga was discontinued. * Endocrinology was consulted and is currently on the case. * Received oral potassium supplementation and once potassium crossed greater than 3.3, low dose insulin drip was started. * Patient was on insulin drip until 8pm of 08/24/25, and was given 10 units of lantus. Later she was started on Ringer Lactate with Q4 glucose monitoring. * Will continue on lantus 10 units, with regular glucose monitoring, as per endocrinology recommendations, she was advised to change from high dose to low dose insulin sliding scale. Metabolic acidosis with compensated respiratory alkalosis, POA * ABG showed pH of 7.38, pCO2 of 27, bicarb of 15, lactic acid of one with compensated respiratory alkalosis * Anion gap has dropped down to 8mEq/L today from 18mEq/L during admission. Patient was downgraded from ICU to Med/surg floors. * Will continue to monitor with daily labs. Acute kidney injury, POA * BMP on 08/24/25 showed sodium of 138, potassium 2.9, bicarb is 19, BUN of 17 , creatinine 2.6, GFR-31. * Patient was started on IV hydration. Losartan was held from 08/24/25. Bactrim was held due to likely contributing towards the CARY. * BUN trends 15>11>5, Cr-2.6>1.6>1.0>0.6. GFR-31>36>63>100 * Nephrology was consulted and is currently on the case. * Will continue to monitor with daily labs. Urinary Tract infection, POA * Urinalysis showed cloudy appearance, Urine protein - 50, Urine occult blood- Moderate, Urine leukocyte esterase-75, Urine WBC-11-25. * Bactrim was held. Started the patient on Rocephin twice daily (day3). * WBC trends 5.9>5.6>4.3 * Urine culture was ordered, pending results. * Will continue to monitor with daily labs. Acute on chronic iron deficiency anemia, POA: * Hb trends-7.4>6.9>8.4>7.6>8.0. One unit of leukocyte reduced RBC was transfused on 08/24/25. * Iron panel was ordered, Iron - 13, TIBC-456, %saturation-2.8, Ferritin-8 * Will start patient on IV iron sucrose infusion. * GI was consulted for H/O nonbleeding gastric ulcer, hemorrhoids * H&H will be monitored closely. Thrombocytosis, POA * Platelets trends 760>568>521. * Thrombocytosis likely reactive from underlying iron deficiency anemia. * Will continue to monitor with daily labs. ATTESTATION BY PHYSICIAN I have seen and examined the patient. I reviewed the documentation, medical decision making, and treatment plan as noted by the resident physician above. I agree with the findings and plan of care. KENJI SHI MD, SHAJI MD Aug 26, 2025 11:29
--- NOTE | 2025-08-26 14:14 | PN ---
NEPHROLOGY PROGRESS NOTE Date/Time Patient Seen: Aug 26, 2025 SUBJECTIVE: This is a 65-year-old female with underlying history of chronic anemia, history of iron deficiency, prior history of GI bleed, hemorrhoids, hypertension, type 2 diabetes mellitus maintained on outpatient treatment with SGLT2 inhibitor with Farxiga, history of gastric ulcer She presented to the ER for further evaluation of dizziness, generalized weaknes s, poor oral intake with nausea and vomiting. The patient is now brought in with diabetic ketoacidosis, euglycemic. The patient was on SGLT2 inhibitors. The patient has a history of nausea and vomiting, found to have elevated BUN and creatinine. The patient was recently given Bactrim. No other associated symptoms. No other aggravating or relieving factor. The patient is hypokalemic also. Says acute renal failure, acidosis and L glycemic ketoacidosis requiring insulin. She has been transferred to the medical floor. Renal function and electrolytes are stable. Hemoglobin was noted, she continues on IV iron She continues on antibiotics She was seen in the medical floor, in no acute distress REVIEW OF SYSTEMS: GENERAL: Negative for any nausea, vomiting, fevers, chills, or weight loss. NEUROLOGIC: Negative for any blurry vision, blind spots, double vision, facial asymmetry, dysphagia, dysarthria, hemiparesis, hemisensory deficits, vertigo, ataxia. HEENT: Negative for any head trauma, neck trauma, neck stiffness, photophobia, phonophobia, sinusitis, rhinitis. CARDIAC: Negative for any chest pain, dyspnea on exertion, paroxysmal nocturnal dyspnea, peripheral edema. PULMONARY: Negative for any shortness of breath, wheezing, COPD, or TB exposure. GASTROINTESTINAL: Negative for any abdominal pain, nausea, vomiting, bright red blood per rectum, melena. GENITOURINARY: Negative for any dysuria, hematuria, incontinence. INTEGUMENTARY: Negative for any rashes, cuts, insect bites. RHEUMATOLOGIC: Negative for any joint pains, photosensitive rashes, history of vasculitis or kidney problems. HEMATOLOGIC: Negative for any abnormal bruising, frequent infections or bleeding. Vital Signs (last 8hr) Date Time Temp Pulse Resp B/P (MAP) Pulse Ox O2 Delivery O2 Flow Rate FiO2 08/26/25 12:00 97.9 68 16 136/54 95 Room Air 08/26/25 08:00 98.2 78 15 148/66 96 Room Air 08/26/25 07:14 65 18 N/A Room Air 21 PHYSICAL EXAM: GENERAL: Alert and oriented x 3. No acute distress. Well-nourished. EYES: EOMI. Anicteric. HENT: Moist mucous membranes. No scleral icterus. No cervical lymphadenopathy. LUNGS: Clear to auscultation bilaterally. No accessory muscle use. CARDIOVASCULAR: Regular rate and rhythm. No murmur. No JVD. ABDOMEN: Soft, non-tender and non-distended. No palpable masses. EXTREMITIES: No edema. Non-tender. SKIN: No rashes or lesions. Warm. NEUROLOGIC: No focal neurological deficits. CN II-XII grossly intact, but not individually tested. PSYCHIATRIC: Cooperative. Appropriate mood and affect. Current Medications Medications (Trade) Dose Ordered Sig/Sylvester Route PRN Reason Start Time Stop Time Status Last Admin Dose Admin Albuterol (DUOneb) 1 udvial Q6H PRN IH SHORTNESS OF BREATH 08/24/25 14:00 09/23/25 13:59 Ceftriaxone Sodium (ROCEphine 1G INJ) 1 gm Q12H IVPB 08/24/25 13:30 09/03/25 13:29 08/26/25 02:23 1 GM Dextrose/Sodium Chloride 1,000 ml @ 0 mls/hr AD IV 08/24/25 14:00 08/24/25 20:50 DC Insulin Glargine (LANtus 100 UNITS/ML 10 ML VIAL) 10 units BID@0730,2100 SQ 08/25/25 07:30 09/24/25 07:29 08/25/25 22:02 10 UNITS Insulin Human Regular (humuLIN R 100 UNIT/ML 3ML) INSULIN SLIDING SCAL... ACHS SQ 08/25/25 07:30 08/25/25 21:53 DC Insulin Human Regular (humuLIN R 100 UNIT/ML 3ML) INSULIN SLIDING SCAL... ACHS SQ 08/26/25 07:30 09/25/25 07:29 Insulin Human Regular 100 unit/ Sodium Chloride 101 ml @ 0 mls/hr PROTOCOL IV 08/24/25 14:00 08/24/25 20:50 DC 08/24/25 17:32 0 MLS/HR Iron Sucrose 300 mg/Sodium Chloride 250 ml @ 83 mls/hr DAILY IV 08/25/25 09:00 10/18/25 10:00 08/26/25 10:13 83 MLS/HR Lactated Ringer's 1,000 ml @ 150 mls/hr Q6H40M IV 08/24/25 21:00 09/23/25 20:59 08/25/25 17:27 150 MLS/HR Magnesium Sulfate 50 ml @ 0 mls/hr PROTOCOL IV 08/24/25 14:00 09/23/25 13:59 08/25/25 06:18 25 MLS/HR Pantoprazole Sodium (PROTonix 40MG INJ) 40 mg Q12H IVP 08/24/25 13:30 09/23/25 13:29 08/26/25 02:23 40 MG Phenazopyridine HCl (PYRIdium HCL 200 MG TAB) 200 mg Q8H PRN PO OTHER [SEE ORDER COMMENTS] 08/24/25 22:00 08/24/25 22:05 DC Potassium Chloride 20 meq/ Sodium Chloride 1,010 ml @ 0 mls/hr PROTOCOL IV 08/24/25 14:00 08/24/25 20:50 DC Potassium Chloride/Dextrose/ Sod Cl 1,000 ml @ 0 mls/hr AD IV 08/24/25 14:00 08/24/25 20:50 DC 08/24/25 16:10 150 MLS/HR Potassium Chloride 100 ml @ 100 mls/hr AD PRN IV POTASSIUM PROTOCOL 08/24/25 14:00 09/23/25 13:59 Potassium Chloride 100 ml @ 0 mls/hr PROTOCOL PRN IV DKA POTASSIUM REPLACEMENT 08/24/25 14:00 08/24/25 20:50 DC Potassium Chloride (K-Dur/Klor-Con 20meq) 20 meq AD PRN PO POTASSIUM PROTOCOL 08/24/25 14:00 09/23/25 13:59 08/26/25 08:09 20 MEQ Potassium Chloride (KCl 10% Elixir 20meq/15ml) 20 meq AD PRN PO POTASSIUM PROTOCOL 08/24/25 14:00 09/23/25 13:59 08/25/25 06:18 20 MEQ Sodium Chloride 1,000 ml @ 75 mls/hr [id number] IV 08/24/25 13:30 08/24/25 13:34 DC Sodium Chloride 1,000 ml @ 75 mls/hr [id number] IV 08/24/25 13:30 08/24/25 14:11 DC 08/24/25 13:59 75 MLS/HR Sodium Chloride 1,000 ml @ 200 mls/hr PROTOCOL IV 08/24/25 14:00 08/24/25 20:50 DC Thiamine HCl (Vitamin B-1) 100 mg Q24H IVP 08/24/25 13:30 09/23/25 13:29 08/25/25 14:50 100 MG Vitamin B Complex/ Vit C/Folic Acid (Nephrovite Tablet) 1 cap DAILY PO 08/25/25 09:00 08/25/25 08:19 DC Vitamin B Complex/ Vit C/Folic Acid (Nephrovite Tablet) 1 cap DAILY PO 08/25/25 09:00 09/24/25 08:59 08/26/25 09:55 1 CAP LABORATORY: [ ] Hematology Labs: Test 08/26/25 05:32 08/25/25 04:26 Range/Units White Blood Count 4.3 L 4.8-10.8 K/uL Red Blood Count 4.05 4.00-5.50 MIL/uL Hemoglobin 8.0 L 12.0-16.0 g/dL Hematocrit 28.2 L 36-48 % Mean Corpuscular Volume 69.6 L 79-99 fL Mean Corpuscular Hemoglobin 19.8 L 27.0-33.0 pg Mean Corpuscular Hemoglobin Concent 28.4 L 32.0-36.0 g/dL Red Cell Distribution Width 22.4 H 11.0-15.5 % Platelet Count 521 H 130-400 K/uL Mean Platelet Volume 8.5 7.5-10.5 fL Segmented Neutrophils % 61 40-70 % Lymphocytes % (Manual) 23 22-44 % Monocytes % (Manual) 6 2-9 % Eosinophils % (Manual) 4 1-6 % Basophils % (Manual) 1 0-2 % Nucleated Red Blood Cells 0.0 0.0-0.19 % Differential Comment MANUAL DIFFERENTIAL Reactive Lymphocytes 5 H 0-0 % White Cell Morphology Comment See comments Platelet Morphology Comment SLIGHT INCREASED Red Blood Cell Morphology See comments Immature Granulocyte % (Auto) 0.4 0-1 % Neutrophils (%) (Auto) 49.9 40.0-77.0 % Lymphocytes (%) (Auto) 33.6 21.0-51.0 % Monocytes (%) (Auto) 10.3 3.0-13.0 % Eosinophils (%) (Auto) 4.6 0.0-8.0 % Basophils (%) (Auto) 1.2 0.0-5.0 % Neutrophils # (Auto) 2.8 1.8-7.7 K/uL Lymphocytes # (Auto) 1.9 1.0-4.8 K/uL Monocytes # (Auto) 0.6 0.1-1.0 K/uL Eosinophils # (Auto) 0.26 0.00-0.70 K/uL Basophils # (Auto) 0.07 0.00-0.20 K/uL Absolute Immature Granulocyte (auto 0.02 0-1 K/uL Chemistry Labs: Test 08/26/25 11:22 08/26/25 05:32 08/25/25 04:26 Range/Units Whole Blood Glucose 101 70-110 MG/DL Sodium Level 142 136-145 mmol/L Potassium Level 3.4 L 3.5-5.1 mmol/L Chloride Level 111 101-111 mmol/L Carbon Dioxide Level 24 21-32 mmol/L Blood Urea Nitrogen 5 L 7-18 mg/dL Creatinine 0.6 0.5-1.0 mg/dL Glomerular Filtration Rate Calc 100 >90 mL/min Random Glucose 94 70-105 mg/dL Total Calcium 8.2 L 8.5-10.1 mg/dL Phosphorus Level 2.8 2.5-4.9 mg/dL Total Bilirubin 0.1 L 0.2-1.0 mg/dL Aspartate Amino Transf (AST/SGOT) 18 10-37 U/L Alanine Aminotransferase (ALT/SGPT) 16 12-78 U/L Alkaline Phosphatase 81 50-136 U/L Total Protein 5.9 L 6.0-8.3 g/dL Albumin 2.9 L 3.5-5.0 g/dL Magnesium Level 1.70 L 1.80-2.40 mg/dL DIAGNOSTICS / RADIOLOGY: [address] [address] IMAGING REPORT Signed PATIENT: RORY GARCIA MR#: [id number] : 1960 SEX: F AGE: 65 LOCATION: [facility] ORDER 27 STATUS: ADM IN [facility] REPORT#: [id number] SERVICE 24 REASON: nausea/ vomiting x 3 days, UTI, C[place] ORDERING PHYSICIAN: EFRAIN STACY MD PROCEDURE: ABD PEL WO - CT ABDOMEN/PELVIS W/O CONTRAST EXAM: CT Abdomen and Pelvis Without IV Contrast. CLINICAL HISTORY: Nausea/vomiting ??? 3 days, UTI, CARY. TECHNIQUE: Axial computed tomography images of the abdomen and pelvis were obtained without intravenous contrast. Multiplanar reformats were reviewed. CONTRAST: No IV contrast administered. DOSE SCAN DETAILS: No. Protocol # of Scans kVp CTDIvol (mGy) DLP (mGy???cm) 1 DualScano 1 120 ? 2 DualScano 1 120 ? 3 Helical 1 120 7.00 (Body) 376.90 (Body) Radiation Dose (From Helical Acquisition): CTDIvol: 7.00 mGy DLP: 376.90 mGy???cm COMPARISON: None provided. FINDINGS: LUNG BASES: Clear. No pleural effusion. LIVER: Unremarkable. GALLBLADDER AND BILE DUCTS: Surgically absent gallbladder. No intrahepatic or extrahepatic biliary dilatation. PANCREAS: Unremarkable. SPLEEN: Normal size and attenuation. ADRENAL GLANDS: Unremarkable. KIDNEYS, URETERS, AND BLADDER: Left renal calculus (0.5 cm) in the upper pole. No hydronephrosis or hydroureter. Urinary bladder unremarkable. STOMACH AND BOWEL: Uncomplicated colonic diverticulosis. No bowel wall thickening, obstruction, or inflammatory changes. Sliding hiatus hernia measuring 2.7 ??? 1.2 cm. APPENDIX: Not dilated; no periappendiceal inflammation. PERITONEUM: No free fluid or free air. ABDOMINAL WALL: Fascial defect at umbilical region measuring 1.5 cm containing fat???suggestive of a small fat-containing umbilical hernia. LYMPH NODES: No abnormally enlarged lymph nodes. REPRODUCTIVE ORGANS: Surgically absent uterus. Adnexal regions unremarkable. VASCULATURE: Aortoiliac vessels normal in calibre. No aneurysm. BONES: Degenerative thoracolumbar spondylosis. Grade I anterolisthesis of L3 over L4 secondary to facet arthropathy and pars defects. Loss of disc height at T10???T11 with endplate irregularities. No acute fracture. IMPRESSION: 1. Left renal calculus (0.5 cm) in the upper pole, without hydronephrosis or hydroureter. 2. Grade I anterolisthesis of L3 over L4 secondary to facet arthropathy and pars defects. 3. Degenerative thoracolumbar spondylosis, including loss of disc height at T10-T11 with endplate irregularities. No acute fracture. 4. Small fat-containing umbilical hernia, with fascial defect measuring 1.5 cm. 5. Sliding hiatus hernia (2.7 ??? 1.2 cm). 6. Uncomplicated colonic diverticulosis. 7. Surgically absent gallbladder and uterus. No intrahepatic or extrahepatic biliary dilatation. /[place] DICTATED BY: ESTEFANY BRWON MD DATE: 08/24/251621 ELECTRONICALLY SIGNED BY: ESTEFANY BROWN MD DATE: 08/24/251621 PATIENT: RORY GARCIA MR#: [id number] : 1960 SEX: F AGE: 65 LOCATION: [facility] ORDER 105 STATUS: REG REPORT#: [id number] SERVICE 1050 REASON: cp ORDERING PHYSICIAN: KAREN SANCHEZ MD PROCEDURE: CXR1VW - CHEST 1VW EXAM: CR Chest, 1 View. CLINICAL HISTORY: COMPARISON: None provided. FINDINGS: LUNGS: There is no mass, infiltrate, or acute pulmonary abnormality. PLEURAL SPACES: No evidence of pleural effusion or pneumothorax. MEDIASTINUM: The cardiomediastinal silhouette is within normal limits. BONES: No aggressive appearing osseous lesion seen. IMPRESSION: No acute cardiopulmonary pathology is evident. /[place] DICTATED BY: OLIMPIA HORN Jr., MD DATE: 08/24/251355 ELECTRONICALLY SIGNED BY: OLIMPIA HORN Jr., MD DATE: 08/24/25 135 PATIENT: RORY GARCIA MR#: [id number] : 1960 SEX: F AGE: 65 LOCATION: [facility] ORDER 1328 STATUS: ADM IN REPORT#: [id number] SERVICE REASON: weakness x 1 day ORDERING PHYSICIAN: EFRAIN STACY MD PROCEDURE: HEAD WO - CT HEAD/BRAIN W/O CONTRAST CT OF THE BRAIN WITHOUT CONTRAST CLINICAL INDICATION: Weakness for 1 day TECHNIQUE: Multiple contiguous axial CT images were obtained through the brain without the administration of intravenous contrast. Coronal and sagittal reconstructions were also obtained. COMPARISON: None available FINDINGS: The ventricular system and cortical sulci demonstrate a normal size and configuration for the patients age. There is patchy hypoattenuation of the periventricular matter bilaterally consistent with microangiopathic ischemic disease. There are no extra-axial collections, mass effect, or midline shift. The basal cisterns are patent. The pimentel-white matter differentiation is preserved. The midline structures and cervicomedullary junction are unremarkable. There is no evidence of acute intracranial hemorrhage or areas of acute territorial infarction. Vascular calcification is present. The calvarium is unremarkable in appearance. No suspicious lytic or sclerotic osseous lesions are seen. The visualized portions of the sinuses are well aerated. The mastoid air cells are well pneumatized and well aerated. The visualized orbital structures are unremarkable. IMPRESSION: 1. No CT evidence of an acute intracranial process. 2. 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 /[place] DICTATED BY: MARCELLE OVIEDO MD DATE: 08/24/251525 ELECTRONICALLY SIGNED BY: MARCELLE OVIEDO MD DATE: 08/24/251525 ASSESSMENT: Suspected euglycemic DKA likely provoked by Farxiga use as outpatient, POA Acute kidney injury, POA Metabolic acidosis with compensated respiratory alkalosis, POA Acute on chronic iron deficiency anemia, POA Urinary Tract infection, POA Moderate hypokalemia, POA Rule out chronic GI bleeding, POA Prior history of gastric ulcer, POA History of hemorrhoids, POA Type 2 diabetes mellitus, POA Hypertension, POA Hyperlipidemia, POA Thrombocytosis, POA PLAN: Labs, diagnostic, radiologic exams reviewed and interpreted by myself and supervising physician. We have reviewed external records in detail Continue with the IV iron Continue with the antibiotics. Potassium replacement has been ordered Require close monitoring of renal function and electrolytes Order CBC, CMP, and electrolytes in am BiPAP as necessary, for respiratory distress Monitor blood pressure adjust medication doses as needed Avoid hypotensive episodes May use Dilaudid 0.5 mg IV every 6 hours as needed for severe pain Monitor blood sugars Strict intake, output, and daily weight should be monitored Please renally adjust medications Avoid nephrotoxic and nonsteroidal drugs Avoid contrast if possible Will continue to monitor renal function, anemia, electrolytes Treatment plan discussed with patient Questions were answered We have discussed with the other team physicians in detail about the care plan We will continue to monitor the patient closely ATTESTATION BY PHYSICIAN I have seen and examined the patient. I reviewed the documentation, medical decision making, and treatment plan as noted by the mid-level provider above. I agree with the findings and plan of care. SCOTTY COLEMAN MD, [facility] Aug 26, 2025 14:14
--- NOTE | 2025-08-26 16:48 | CONS ---
GASTROENTEROLOGY CONSULTATION NOTE Date of Consultation: Aug 26, 2025 Time of Consultation: 16:45 History of Present Illness: 65-year-old female with past medical history of chronic anemia, GI bleed and peptic ulcer disease presents to the emergency room for evaluation of chest pain and generalized body weakness. We are consulted due to concern for upper GI bleed. Patient seen and examined with RN at bedside. Patient reports intermittent episodes of dark tarry stools over the last few weeks. Initial labs reveal hemoglobin level of 6.9. Review of Systems: CONSTITUTIONAL: No malaise or change in sensation of wellbeing. ENMT: No rhinorrhea, otorrhea, sinus pain, ear ache. CARDIOVASCULAR: No angina, palpitations, orthopnea or paroxysmal dyspnea. RESPIRATORY: No SOB. GASTROINTESTINAL: No abdominal pain, nausea, vomiting, diarrhea, hematemesis, melena or change in the patient's habitual bowel movements consistency/number. GENITOURINARY: No dysuria, hematuria or change in bladder continence. MUSCULOSKELETAL: No new muscle pain or decrease in muscular strength. No new joint swelling, redness or tenderness. SKIN: No new rash. Past Medical History: [ ] Past Surgical History: [ ] Past Social History: [ ] Family History: [ ] Coded Allergies: No Known Drug Allergies (Verified Allergy, Unknown, 06/18/24) Physical Exam: GEN: Awake, alert, oriented in person, time and place, and in no acute distress. HEENT: No sinus tenderness. Tympanic membranes were not examined. No rhinorrhea. Oral pharyngeal mucosa is pink, moist and within normal limits. Neck is supple with no cervical lymphadenopathy, thyromegaly or JVD. CHEST: Inspection, palpation and percussion of the chest were unremarkable. Lung auscultation revealed normal breath sounds bilaterally. CARDIAC: PMI is within normal limits. Heart sounds are regular. Normal S1, S2. No gallop or murmur. ABD: Soft, non-tender and not distended. No peritoneal signs on palpation. No organomegaly. Normal bowel sounds. EXT: No cyanosis or clubbing. No edema. SKIN: Intact. No rashes. JOINTS: No evidence of synovitis or acute arthritis. NEURO: Alert and oriented to name, place and person. Cranial nerve examination is unremarkable. No focal motor deficits. Normal speech. Gait is normal. Strength is normal. Vital Sign (Last 24 Hours) 08/26/25 08/26/25 12:00 14:27 Temp 97.9 Pulse 68 Resp 16 B/P (MAP) 136/54 Pulse Ox 96 O2 Delivery Room Air* O2 Flow Rate 0 FiO2 21 Intake & Output (last 24hrs) 08/25/25 08/25/25 08/26/25 15:00 23:00 07:00 Intake Total 791.0 ml 2300.0 ml 2400.0 ml Output Total 300 ml 200 ml Balance 491.0 ml 2100.0 ml 2400.0 ml Laboratory: [ ] Laboratory: Test 08/26/25 15:41 08/26/25 05:32 08/25/25 04:26 08/25/25 00:50 Range/Units Whole Blood Glucose 93 70-110 MG/DL White Blood Count 4.3 L 4.8-10.8 K/uL Red Blood Count 4.05 4.00-5.50 MIL/uL Hemoglobin 8.0 L 12.0-16.0 g/dL Hematocrit 28.2 L 36-48 % Mean Corpuscular Volume 69.6 L 79-99 fL Mean Corpuscular Hemoglobin 19.8 L 27.0-33.0 pg Mean Corpuscular Hemoglobin Concent 28.4 L 32.0-36.0 g/dL Red Cell Distribution Width 22.4 H 11.0-15.5 % Platelet Count 521 H 130-400 K/uL Mean Platelet Volume 8.5 7.5-10.5 fL Segmented Neutrophils % 61 40-70 % Lymphocytes % (Manual) 23 22-44 % Monocytes % (Manual) 6 2-9 % Eosinophils % (Manual) 4 1-6 % Basophils % (Manual) 1 0-2 % Nucleated Red Blood Cells 0.0 0.0-0.19 % Differential Comment MANUAL DIFFERENTIAL Reactive Lymphocytes 5 H 0-0 % White Cell Morphology Comment See comments Platelet Morphology Comment SLIGHT INCREASED Red Blood Cell Morphology See comments Sodium Level 142 136-145 mmol/L Potassium Level 3.4 L 3.5-5.1 mmol/L Chloride Level 111 101-111 mmol/L Carbon Dioxide Level 24 21-32 mmol/L Blood Urea Nitrogen 5 L 7-18 mg/dL Creatinine 0.6 0.5-1.0 mg/dL Glomerular Filtration Rate Calc 100 >90 mL/min Random Glucose 94 70-105 mg/dL Total Calcium 8.2 L 8.5-10.1 mg/dL Phosphorus Level 2.8 2.5-4.9 mg/dL Total Bilirubin 0.1 L 0.2-1.0 mg/dL Aspartate Amino Transf (AST/SGOT) 18 10-37 U/L Alanine Aminotransferase (ALT/SGPT) 16 12-78 U/L Alkaline Phosphatase 81 50-136 U/L Total Protein 5.9 L 6.0-8.3 g/dL Albumin 2.9 L 3.5-5.0 g/dL Immature Granulocyte % (Auto) 0.4 0-1 % Neutrophils (%) (Auto) 49.9 40.0-77.0 % Lymphocytes (%) (Auto) 33.6 21.0-51.0 % Monocytes (%) (Auto) 10.3 3.0-13.0 % Eosinophils (%) (Auto) 4.6 0.0-8.0 % Basophils (%) (Auto) 1.2 0.0-5.0 % Neutrophils # (Auto) 2.8 1.8-7.7 K/uL Lymphocytes # (Auto) 1.9 1.0-4.8 K/uL Monocytes # (Auto) 0.6 0.1-1.0 K/uL Eosinophils # (Auto) 0.26 0.00-0.70 K/uL Basophils # (Auto) 0.07 0.00-0.20 K/uL Absolute Immature Granulocyte (auto 0.02 0-1 K/uL Magnesium Level 1.70 L 1.80-2.40 mg/dL Urine Random Creatinine 161.31 H 30-135 mg/dL Urine Random Sodium 100 40-220 mmol/l Urine Random Potassium 24 L 25-125 mmol/L Urine Random Chloride 139 110-250 mmol/L Current Medications Medications (Trade) Dose Ordered Sig/Sylvester Route PRN Reason Start Time Stop Time Status Last Admin Dose Admin Albuterol (DUOneb) 1 udvial Q6H PRN IH SHORTNESS OF BREATH 08/24/25 14:00 09/23/25 13:59 Atorvastatin Calcium (LIPItor 20MG) 20 mg HS PO 08/26/25 21:00 09/25/25 20:59 Ceftriaxone Sodium (ROCEphine 1G INJ) 1 gm Q12H IVPB 08/24/25 13:30 09/03/25 13:29 08/26/25 15:03 1 GM Citalopram Hydrobromide (CeleXA 20MG TAB) 20 mg DAILY PO 08/27/25 09:00 09/26/25 08:59 Dextrose/Sodium Chloride 1,000 ml @ 0 mls/hr AD IV 08/24/25 14:00 08/24/25 20:50 DC Gabapentin (NEURontin 100 mg CAP) 100 mg HS PO 08/26/25 21:00 09/25/25 20:59 Home Med (Home Medication) (Cholecalciferol (Vitamin D3) (D3-5000) ... DAILY PO 08/27/25 09:00 09/26/25 08:59 Insulin Glargine (LANtus 100 UNITS/ML 10 ML VIAL) 10 units BID@0730,2100 SQ 08/25/25 07:30 09/24/25 07:29 08/25/25 22:02 10 UNITS Insulin Human Regular (humuLIN R 100 UNIT/ML 3ML) INSULIN SLIDING SCAL... ACHS SQ 08/25/25 07:30 08/25/25 21:53 DC Insulin Human Regular (humuLIN R 100 UNIT/ML 3ML) INSULIN SLIDING SCAL... ACHS SQ 08/26/25 07:30 09/25/25 07:29 Insulin Human Regular 100 unit/ Sodium Chloride 101 ml @ 0 mls/hr PROTOCOL IV 08/24/25 14:00 08/24/25 20:50 DC 08/24/25 17:32 0 MLS/HR Iron Sucrose 300 mg/Sodium Chloride 250 ml @ 83 mls/hr DAILY IV 08/25/25 09:00 08/27/25 10:00 08/26/25 10:13 83 MLS/HR Lactated Ringer's 1,000 ml @ 150 mls/hr Q6H40M IV 08/24/25 21:00 09/23/25 20:59 08/26/25 15:03 150 MLS/HR Magnesium Sulfate 50 ml @ 0 mls/hr PROTOCOL IV 08/24/25 14:00 09/23/25 13:59 08/25/25 06:18 25 MLS/HR Pantoprazole Sodium (PROTonix 40MG INJ) 40 mg Q12H IVP 08/24/25 13:30 09/23/25 13:29 08/26/25 15:03 40 MG Phenazopyridine HCl (PYRIdium HCL 200 MG TAB) 200 mg Q8H PRN PO OTHER [SEE ORDER COMMENTS] 08/24/25 22:00 08/24/25 22:05 DC Potassium Chloride 20 meq/ Sodium Chloride 1,010 ml @ 0 mls/hr PROTOCOL IV 08/24/25 14:00 08/24/25 20:50 DC Potassium Chloride/Dextrose/ Sod Cl 1,000 ml @ 0 mls/hr AD IV 08/24/25 14:00 08/24/25 20:50 DC 08/24/25 16:10 150 MLS/HR Potassium Chloride 100 ml @ 100 mls/hr AD PRN IV POTASSIUM PROTOCOL 08/24/25 14:00 09/23/25 13:59 Potassium Chloride 100 ml @ 0 mls/hr PROTOCOL PRN IV DKA POTASSIUM REPLACEMENT 08/24/25 14:00 08/24/25 20:50 DC Potassium Chloride (K-Dur/Klor-Con 20meq) 20 meq AD PRN PO POTASSIUM PROTOCOL 08/24/25 14:00 09/23/25 13:59 08/26/25 15:06 20 MEQ Potassium Chloride (KCl 10% Elixir 20meq/15ml) 20 meq AD PRN PO POTASSIUM PROTOCOL 08/24/25 14:00 09/23/25 13:59 08/25/25 06:18 20 MEQ Sodium Chloride 1,000 ml @ 75 mls/hr [id number] IV 08/24/25 13:30 08/24/25 13:34 DC Sodium Chloride 1,000 ml @ 75 mls/hr [id number] IV 08/24/25 13:30 08/24/25 14:11 DC 08/24/25 13:59 75 MLS/HR Sodium Chloride 1,000 ml @ 200 mls/hr PROTOCOL IV 08/24/25 14:00 08/24/25 20:50 DC Thiamine HCl (Vitamin B-1) 100 mg Q24H IVP 08/24/25 13:30 09/23/25 13:29 08/26/25 15:04 100 MG Vitamin B Complex/ Vit C/Folic Acid (Nephrovite Tablet) 1 cap DAILY PO 08/25/25 09:00 10/16/25 08:19 DC Vitamin B Complex/ Vit C/Folic Acid (Nephrovite Tablet) 1 cap DAILY PO 08/25/25 09:00 09/24/25 08:59 08/26/25 09:55 1 CAP Diagnostics / Radiology: [COPY/PASTE HERE IF NO REPORTS PLEASE DELETE SECTION] Assessment: Melena Anemia Peptic ulcer disease Plan: NPO margy MOTLEY EGD in AM Continue GI prophylaxis Advance diet as tolerated Avoid NSAIDs Antireflux measures Monitor H&H and transfuse as needed Call with questions, concerns or change in clinical status Patient to follow-up at clinic post discharge Thank you for this consult CARMELA REYNAGA [facility] [employer] [employer] Aug 26, 2025 16:48
--- NOTE | 2025-08-26 21:14 | PN ---
Endocrinology progress note DOS: 08/26/25 subjective: glucose are stable. home regimen: farxiga 10 mg daily but did not take for 10 days. REVIEW OF SYSTEMS CONSTITUTIONAL: poor oral intake, malaise, fatigue NEUROLOGICAL: Denies headache, amaurosis fugax, motor weakness, sensory deficit, vertigo/spinning sensation, gait abnormalities, or tremors. ENT: No hearing loss, otalgia, otorrhea, rhinitis, rhinorrhea, hoarseness, or sore throat. CARDIOVASCULAR: Denies any exertional angina, dyspnea on exertion, orthopnea, paroxysmal nocturnal dyspnea, palpitations, life-threatening arrhythmias, claudication. PULMONARY: Denies any shortness of breath, cough, phlegm/sputum, hemoptysis, pleuritic chest pain. SLEEP: Denies morning headaches, daytime somnolence or napping. Denies difficulty falling asleep, staying asleep, waking from sleep. Denies knowledge of snoring. GASTROINTESTINAL: nausea and vomiting, some suprapubic discomfort GENITOURINARY: Denies frequency, urgency, nocturia, hematuria or incontinence (Storage/Irritative symptoms.) Low urinary stream, straining to void, urinary intermittency or hesitancy, splitting of the voiding stream, terminal dribbling. ENDOCRINOLOGIC: Denies polyuria, polydipsia, polyphagia or heat/cold intolerances. HEMATOLOGIC: Denies thrombophilia/previous clots, or coagulopathy/bleeding disorders. ONCOLOGIC: Denies personal history of malignancy. DERMATOLOGIC: Denies rashes or pruritus. PSYCHIATRIC: Denies any suicidal or homicidal ideation. Denies hallucinations. PAST MEDICAL HISTORY: Hypertension, hyperlipidemia, type 2 diabetes mellitus maintained on outpatient treatment with Farxiga, prior history of UTI, history of chronic iron deficiency anemia, prior history of hemorrhoids with gastric ulcer disease PAST SURGICAL HISTORY: Reports having had previous history of EGD in 06/2024, history of colonoscopy previously, history of cholecystectomy, history of hysterectomy, prior history of right shoulder rotator cuff surgery PAST SOCIAL HISTORY: Denies history of active smoking or alcohol consumption, resides alone at home, typically she is independent with ADLs and IADLs FAMILY HISTORY: Denies pertinent family history Allergies: No known drug allergies Medications: Farxiga 10 mg daily, losartan 50 mg twice daily, patient has been started recently on Bactrim for treatment of urinary tract infection Coded Allergies: No Known Drug Allergies (Verified Allergy, Unknown, 06/18/24) DIAGNOSTICS / RADIOLOGY: SERVICE REASON: weakness x 1 day ORDERING PHYSICIAN: EFRAIN STACY MD PROCEDURE: HEAD WO - CT HEAD/BRAIN W/O CONTRAST CT OF THE BRAIN WITHOUT CONTRAST CLINICAL INDICATION: Weakness for 1 day TECHNIQUE: Multiple contiguous axial CT images were obtained through the brain without the administration of intravenous contrast. Coronal and sagittal reconstructions were also obtained. COMPARISON: None available FINDINGS: The ventricular system and cortical sulci demonstrate a normal size and configuration for the patients age. There is patchy hypoattenuation of the periventricular matter bilaterally consistent with microangiopathic ischemic disease. There are no extra-axial collections, mass effect, or midline shift. The basal cisterns are patent. The pimentel-white matter differentiation is preserved. The midline structures and cervicomedullary junction are unremarkable. There is no evidence of acute intracranial hemorrhage or areas of acute territorial infarction. Vascular calcification is present. The calvarium is unremarkable in appearance. No suspicious lytic or sclerotic osseous lesions are seen. The visualized portions of the sinuses are well aerated. The mastoid air cells are well pneumatized and well aerated. The visualized orbital structures are unremarkable. IMPRESSION: 1. No CT evidence of an acute intracranial process. 2. 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 /[place] DICTATED BY: MARCELLE OVIEDO MD DATE: 08/24/25 1526 ELECTRONICALLY SIGNED ASSESSMENT: euglycemic DKA was suspected by Farxiga use as outpatient, POA Home diabetic regimen: off farxiga 10 mg for 2 weeks Hba1c 7.2% my suspicion is low for euglycemic dka as she is off farxiga for 10 days. reports UTI due to farxiga. Type 2 diabetes mellitus, POA Acute kidney injury, POA improving Metabolic acidosis with compensated respiratory alkalosis, POA Acute on chronic iron deficiency anemia, POA Urinary Tract infection, POA Moderate hypokalemia, POA Rule out chronic GI bleeding, POA Prior history of gastric ulcer, POA History of hemorrhoids, POA Hypertension, POA Hyperlipidemia, POA Thrombocytosis, POA Urinary tract infection, POA PLAN: continue Lantus 10 units daily and adjust for fasting glucose. continue low dose sliding scale insulin. Monitor glucose q x 6 hourly. Continue carb consistent diet. Keep glucose less than 180 mg/dl. Patient was recommended to stop farxiga due to recurrent UTI but refused. she wants to follow up with pcp for diabetic meds change. Vitals/Labs Vital Signs Date Time Temp Pulse Resp B/P (MAP) Pulse Ox O2 Delivery O2 Flow Rate FiO2 08/26/25 20:00 98.1 79 18 130/53 95 Room Air 08/26/25 18:30 21 08/26/25 14:27 0 Laboratory Tests 08/26/25 05:32 Medications Current Medications Sodium Chloride 1,000 ml @ 0 mls/hr ONCE ONCE IV Last administered on 08/24/25at 12:29; Start 08/24/25 at 12:00; Stop 08/24/25 at 12:01; Status DC Pantoprazole Sodium 40 mg Q12H IVP Last administered on 08/26/25at 15:03; Start 08/24/25 at 13:30; Stop 09/23/25 at 13:29 Thiamine HCl 100 mg Q24H IVP Last administered on 08/26/25at 15:04; Start 08/24/25 at 13:30; Stop 09/23/25 at 13:29 Vitamin B Complex/ Vit C/Folic Acid 1 cap DAILY PO; Start 08/25/25 at 09:00; Stop 08/25/25 at 08:19; Status DC Ceftriaxone Sodium 1 gm Q12H IVPB Last administered on 08/26/25at 15:03; Start 08/24/25 at 13:30; Stop 09/03/25 at 13:29 Sodium Chloride 1,000 ml @ 75 mls/hr [id number] IV Last administered on 08/24/25at 13:59; Start 08/24/25 at 13:30; Stop 08/24/25 at 14:11; Status DC Sodium Chloride 1,000 ml @ 75 mls/hr [id number] IV; Start 08/24/25 at 13:30; Stop 08/24/25 at 13:34; Status DC Albuterol 1 udvial Q6H PRN IH; Start 08/24/25 at 14:00; Stop 09/23/25 at 13:59 Potassium Chloride 100 ml @ 100 mls/hr AD PRN IV; Start 08/24/25 at 14:00; Stop 09/23/25 at 13:59 Potassium Chloride 20 meq AD PRN PO Last administered on 08/25/25at 06:18; Start 08/24/25 at 14:00; Stop 09/23/25 at 13:59 Potassium Chloride 20 meq AD PRN PO Last administered on 08/26/25at 18:09; Start 08/24/25 at 14:00; Stop 09/23/25 at 13:59 Magnesium Sulfate 50 ml @ 0 mls/hr PROTOCOL IV Last administered on 08/25/25at 06:18; Start 08/24/25 at 14:00; Stop 09/23/25 at 13:59 Sodium Chloride 1,000 ml @ 200 mls/hr PROTOCOL IV; Start 08/24/25 at 14:00; Stop 08/24/25 at 20:50; Status DC Potassium Chloride/Dextrose/ Sod Cl 1,000 ml @ 0 mls/hr AD IV Last administered on 08/24/25at 16:10; Start 08/24/25 at 14:00; Stop 08/24/25 at 20:50; Status DC Potassium Chloride 20 meq/ Sodium Chloride 1,010 ml @ 0 mls/hr PROTOCOL IV; Start 08/24/25 at 14:00; Stop 08/24/25 at 20:50; Status DC Potassium Chloride 100 ml @ 0 mls/hr PROTOCOL PRN IV; Start 08/24/25 at 14:00; Stop 08/24/25 at 20:50; Status DC Insulin Human Regular 100 unit/ Sodium Chloride 101 ml @ 0 mls/hr PROTOCOL IV Last administered on 08/24/25at 17:32; Start 08/24/25 at 14:00; Stop 08/24/25 at 20:50; Status DC Dextrose/Sodium Chloride 1,000 ml @ 0 mls/hr AD IV; Start 08/24/25 at 14:00; Stop 08/24/25 at 20:50; Status DC Iron Sucrose 300 mg/Sodium Chloride 250 ml @ 83 mls/hr DAILY IV Last administered on 08/26/25at 10:13; Start 08/25/25 at 09:00; Stop 08/27/25 at 10:00 Lactated Ringer's 1,000 ml @ 150 mls/hr [id number] IV Last administered on 08/26/25at 15:03; Start 08/24/25 at 21:00; Stop 09/23/25 at 20:59 Insulin Glargine 10 units ONCE ONCE SQ Last administered on 08/24/25at 21:05; Start 08/24/25 at 21:00; Stop 08/24/25 at 21:01; Status DC Insulin Human Regular INSULIN SLIDING SCAL... ACHS SQ; Start 08/25/25 at 07:30; Stop 08/25/25 at 21:53; Status DC Insulin Glargine 10 units BID@0730,2100 SQ Last administered on 08/25/25at 22:02; Start 08/25/25 at 07:30; Stop 09/24/25 at 07:29 Phenazopyridine HCl 200 mg Q8H PRN PO; Start 08/24/25 at 22:00; Stop 08/24/25 at 22:05; Status DC Vitamin B Complex/ Vit C/Folic Acid 1 cap DAILY PO Last administered on 08/26/25at 09:55; Start 08/25/25 at 09:00; Stop 09/24/25 at 08:59 Insulin Human Regular INSULIN SLIDING SCAL... ACHS SQ; Start 08/26/25 at 07:30; Stop 09/25/25 at 07:29 Atorvastatin Calcium 20 mg HS PO; Start 08/26/25 at 21:00; Stop 09/25/25 at 20:59 Gabapentin 100 mg HS PO; Start 08/26/25 at 21:00; Stop 09/25/25 at 20:59 Home Med (Cholecalciferol (Vitamin D3) (D3-5000) ... DAILY PO; Start 08/27/25 at 09:00; Stop 09/26/25 at 08:59 Citalopram Hydrobromide 20 mg DAILY PO; Start 08/27/25 at 09:00; Stop 09/26/25 at 08:59 MARCO ANTONIO KAUR MD Aug 26, 2025 21:14
--- NOTE | 2025-08-26 21:20 | NUR ---
MEDS SHIFT ASSESSMENT DONE, PLEASE REFER TO CHART. DUE MEDS ADMINISTERED, TOLERATED WELL. KEPT RESTED AND COMFORTABLE IN BED. CALL LIGHT WITHIN REACH. BED ALARM ACTIVATED.
[2025-08-26] MEDS ORDERED: OLME5TAB29 PO (21:22)
[2025-08-27] VITALS (20 sets, daily range): BP systolic 128–171; BP diastolic 40–93; PULSE 61–90; RESP 17–20; TEMP 97.3–98.2; O2SAT 95–100
--- NOTE | 2025-08-27 00:28 | NUR ---
PAGED PT'S BP ELEVATED AT 171/61, HR=61 BPM ON RE-CHECK. 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
--- NOTE | 2025-08-27 00:41 | NUR ---
RE-PAGED NO CALL BACK FROM [facility] [employer] [employer] TECHNICIAN. RE-PAGED VIA ANSWERING SERVICE.
--- NOTE | 2025-08-27 01:04 | NUR ---
CALL LEAD WORKER OF HOUSEKEEPING AND LAUNDRY CALLED IN ER. SPOKE WITH CANDIS ROBLES. REFERRED ELEVATED BP AT REST WITH PT ASYMPTOMATIC. NEW MED ORDERS RECEIVED, PLEASE REFER TO CPOE. WILL MEDICATE PT.
[2025-08-27 06:09] LABS: IMMATURE GRANULOCYTE ABSOLUTE 0.01 K/uL (0-1); NUCLEATED RED BLOOD CELLS 0.0 % (0.0-0.19); PLATELET COUNT (AUTO) 536 K/uL (130-400); RED BLOOD CELL COUNT(AUTO) 4.18 MIL/uL (4.00-5.50); RED CELL DISTRIBUTION WIDTH 22.8 % (11.0-15.5); WHITE BLOOD COUNT (AUTO) 4.6 K/uL (4.8-10.8)
--- NOTE | 2025-08-27 06:10 | NUR ---
ROUNDS PT SLEPT AT INTERVALS DURING THE SHIFT. NO DISTRESS NOTED. KEPT RESTED IN BED. KEPT NPO FOR EGD TODAY. FOR MORE CARE.
[2025-08-27 06:39] LABS: CREATININE 0.5 mg/dL (0.5-1.0); GLOMERULAR FILTR. RATE CALC 104.0 mL/min (>90); GLUCOSE,RANDOM 99.0 mg/dL (70-105); PHOSPHORUS 3.2 mg/dL (2.5-4.9); SODIUM SERUM 143.0 mmol/L (136-145); UREA NITROGEN, BLOOD 4.0 mg/dL (7-18)
[2025-08-27] MEDS ORDERED: LIDOCAINE PF 100MG/5ML (2%) SYRINGE 5ML ONE (08:41)
[2025-08-27] MEDS: CHOLECALCIFEROL 125 MCG PO SCH (09:00)
[2025-08-27] MEDS ORDERED: MAGNESIUM 2GM PREMIX 50ML 50 ML IV PRN (13:30)
--- NOTE | 2025-08-27 13:37 | PN ---
NEPHROLOGY PROGRESS NOTE Date/Time Patient Seen: Aug 27, 2025 SUBJECTIVE: This is a 65-year-old female with underlying history of chronic anemia, history of iron deficiency, prior history of GI bleed, hemorrhoids, hypertension, type 2 diabetes mellitus maintained on outpatient treatment with SGLT2 inhibitor with Farxiga, history of gastric ulcer She presented to the ER for further evaluation of dizziness, generalized weaknes s, poor oral intake with nausea and vomiting. The patient is now brought in with diabetic ketoacidosis, euglycemic. The patient was on SGLT2 inhibitors. The patient has a history of nausea and vomiting, found to have elevated BUN and creatinine. The patient was recently given Bactrim. No other associated symptoms. No other aggravating or relieving factor. The patient is hypokalemic also. Says acute renal failure, acidosis and L glycemic ketoacidosis requiring insulin. She has been transferred to the medical floor. Renal function and electrolytes are stable. Hemoglobin was noted, she continues on IV iron She continues on antibiotics Case management coordinating SNF placement She was seen in the medical floor, in no acute distress REVIEW OF SYSTEMS: GENERAL: Negative for any nausea, vomiting, fevers, chills, or weight loss. NEUROLOGIC: Negative for any blurry vision, blind spots, double vision, facial asymmetry, dysphagia, dysarthria, hemiparesis, hemisensory deficits, vertigo, ataxia. HEENT: Negative for any head trauma, neck trauma, neck stiffness, photophobia, phonophobia, sinusitis, rhinitis. CARDIAC: Negative for any chest pain, dyspnea on exertion, paroxysmal nocturnal dyspnea, peripheral edema. PULMONARY: Negative for any shortness of breath, wheezing, COPD, or TB exposure. GASTROINTESTINAL: Negative for any abdominal pain, nausea, vomiting, bright red blood per rectum, melena. GENITOURINARY: Negative for any dysuria, hematuria, incontinence. INTEGUMENTARY: Negative for any rashes, cuts, insect bites. RHEUMATOLOGIC: Negative for any joint pains, photosensitive rashes, history of vasculitis or kidney problems. HEMATOLOGIC: Negative for any abnormal bruising, frequent infections or bleeding. Vital Signs (last 8hr) Date Time Temp Pulse Resp B/P (MAP) Pulse Ox O2 Delivery O2 Flow Rate FiO2 08/27/25 09:15 97.3 71 17 149/61 98 Room Air 2.0 24 08/27/25 09:10 97.3 66 17 140/63 99 Room Air 2.0 24 08/27/25 09:05 97.3 69 17 145/59 98 Room Air 2.0 24 08/27/25 09:00 97.3 74 18 132/53 98 Room Air 2.0 24 08/27/25 08:55 97.3 71 18 140/66 98 Room Air 2.0 24 08/27/25 08:50 97.3 69 18 143/62 99 Room Air 2.0 24 08/27/25 08:45 97.3 69 18 147/60 97 Nasal Cannula 2.0 24 08/27/25 08:30 Mask 10.0 08/27/25 08:30 73 17 134/79 99 MASK 10.0 08/27/25 08:30 Mask 08/27/25 08:00 98.2 76 20 148/80 95 Room Air 08/27/25 06:29 65 18 N/A Room Air 21 PHYSICAL EXAM: GENERAL: Alert and oriented x 3. No acute distress. Well-nourished. EYES: EOMI. Anicteric. HENT: Moist mucous membranes. No scleral icterus. No cervical lymphadenopathy. LUNGS: Clear to auscultation bilaterally. No accessory muscle use. CARDIOVASCULAR: Regular rate and rhythm. No murmur. No JVD. ABDOMEN: Soft, non-tender and non-distended. No palpable masses. EXTREMITIES: No edema. Non-tender. SKIN: No rashes or lesions. Warm. NEUROLOGIC: No focal neurological deficits. CN II-XII grossly intact, but not individually tested. PSYCHIATRIC: Cooperative. Appropriate mood and affect. Current Medications Medications (Trade) Dose Ordered Sig/Sylvester Route PRN Reason Start Time Stop Time Status Last Admin Dose Admin Albuterol (DUOneb) 1 udvial Q6H PRN IH SHORTNESS OF BREATH 08/24/25 14:00 09/23/25 13:59 Ceftriaxone Sodium (ROCEphine 1G INJ) 1 gm Q12H IVPB 08/24/25 13:30 09/03/25 13:29 08/26/25 02:23 1 GM Dextrose/Sodium Chloride 1,000 ml @ 0 mls/hr AD IV 08/24/25 14:00 08/24/25 20:50 DC Insulin Glargine (LANtus 100 UNITS/ML 10 ML VIAL) 10 units BID@0730,2100 SQ 08/25/25 07:30 09/24/25 07:29 08/25/25 22:02 10 UNITS Insulin Human Regular (humuLIN R 100 UNIT/ML 3ML) INSULIN SLIDING SCAL... ACHS SQ 08/25/25 07:30 08/25/25 21:53 DC Insulin Human Regular (humuLIN R 100 UNIT/ML 3ML) INSULIN SLIDING SCAL... ACHS SQ 08/26/25 07:30 09/25/25 07:29 Insulin Human Regular 100 unit/ Sodium Chloride 101 ml @ 0 mls/hr PROTOCOL IV 08/24/25 14:00 08/24/25 20:50 DC 08/24/25 17:32 0 MLS/HR Iron Sucrose 300 mg/Sodium Chloride 250 ml @ 83 mls/hr DAILY IV 08/25/25 09:00 08/27/25 10:00 08/26/25 10:13 83 MLS/HR Lactated Ringer's 1,000 ml @ 150 mls/hr Q6H40M IV 08/24/25 21:00 09/23/25 20:59 08/25/25 17:27 150 MLS/HR Magnesium Sulfate 50 ml @ 0 mls/hr PROTOCOL IV 08/24/25 14:00 09/23/25 13:59 08/25/25 06:18 25 MLS/HR Pantoprazole Sodium (PROTonix 40MG INJ) 40 mg Q12H IVP 08/24/25 13:30 09/23/25 13:29 08/26/25 02:23 40 MG Phenazopyridine HCl (PYRIdium HCL 200 MG TAB) 200 mg Q8H PRN PO OTHER [SEE ORDER COMMENTS] 08/24/25 22:00 08/24/25 22:05 DC Potassium Chloride 20 meq/ Sodium Chloride 1,010 ml @ 0 mls/hr PROTOCOL IV 08/24/25 14:00 08/24/25 20:50 DC Potassium Chloride/Dextrose/ Sod Cl 1,000 ml @ 0 mls/hr AD IV 08/24/25 14:00 08/24/25 20:50 DC 08/24/25 16:10 150 MLS/HR Potassium Chloride 100 ml @ 100 mls/hr AD PRN IV POTASSIUM PROTOCOL 08/24/25 14:00 09/23/25 13:59 Potassium Chloride 100 ml @ 0 mls/hr PROTOCOL PRN IV DKA POTASSIUM REPLACEMENT 08/24/25 14:00 08/24/25 20:50 DC Potassium Chloride (K-Dur/Klor-Con 20meq) 20 meq AD PRN PO POTASSIUM PROTOCOL 08/24/25 14:00 09/23/25 13:59 08/26/25 08:09 20 MEQ Potassium Chloride (KCl 10% Elixir 20meq/15ml) 20 meq AD PRN PO POTASSIUM PROTOCOL 08/24/25 14:00 09/23/25 13:59 08/25/25 06:18 20 MEQ Sodium Chloride 1,000 ml @ 75 mls/hr [id number] IV 08/24/25 13:30 08/24/25 13:34 DC Sodium Chloride 1,000 ml @ 75 mls/hr [id number] IV 08/24/25 13:30 08/24/25 14:11 DC 08/24/25 13:59 75 MLS/HR Sodium Chloride 1,000 ml @ 200 mls/hr PROTOCOL IV 08/24/25 14:00 08/24/25 20:50 DC Thiamine HCl (Vitamin B-1) 100 mg Q24H IVP 08/24/25 13:30 09/23/25 13:29 08/25/25 14:50 100 MG Vitamin B Complex/ Vit C/Folic Acid (Nephrovite Tablet) 1 cap DAILY PO 08/25/25 09:00 08/25/25 08:19 DC Vitamin B Complex/ Vit C/Folic Acid (Nephrovite Tablet) 1 cap DAILY PO 08/25/25 09:00 09/24/25 08:59 08/26/25 09:55 1 CAP LABORATORY: [ ] Hematology Labs: Test 08/27/25 05:49 08/26/25 05:32 Range/Units White Blood Count 4.6 L 4.8-10.8 K/uL Red Blood Count 4.18 4.00-5.50 MIL/uL Hemoglobin 8.3 L 12.0-16.0 g/dL Hematocrit 28.6 L 36-48 % Mean Corpuscular Volume 68.4 L 79-99 fL Mean Corpuscular Hemoglobin 19.9 L 27.0-33.0 pg Mean Corpuscular Hemoglobin Concent 29.0 L 32.0-36.0 g/dL Red Cell Distribution Width 22.8 H 11.0-15.5 % Platelet Count 536 H 130-400 K/uL Mean Platelet Volume 8.7 7.5-10.5 fL Immature Granulocyte % (Auto) 0.2 0-1 % Neutrophils (%) (Auto) 46.8 40.0-77.0 % Lymphocytes (%) (Auto) 32.7 21.0-51.0 % Monocytes (%) (Auto) 9.6 3.0-13.0 % Eosinophils (%) (Auto) 9.4 H 0.0-8.0 % Basophils (%) (Auto) 1.3 0.0-5.0 % Neutrophils # (Auto) 2.2 1.8-7.7 K/uL Lymphocytes # (Auto) 1.5 1.0-4.8 K/uL Monocytes # (Auto) 0.4 0.1-1.0 K/uL Eosinophils # (Auto) 0.43 0.00-0.70 K/uL Basophils # (Auto) 0.06 0.00-0.20 K/uL Absolute Immature Granulocyte (auto 0.01 0-1 K/uL Nucleated Red Blood Cells 0.0 0.0-0.19 % Segmented Neutrophils % 61 40-70 % Lymphocytes % (Manual) 23 22-44 % Monocytes % (Manual) 6 2-9 % Eosinophils % (Manual) 4 1-6 % Basophils % (Manual) 1 0-2 % Differential Comment MANUAL DIFFERENTIAL Reactive Lymphocytes 5 H 0-0 % White Cell Morphology Comment See comments Platelet Morphology Comment SLIGHT INCREASED Red Blood Cell Morphology See comments Chemistry Labs: Test 08/27/25 13:09 08/27/25 05:49 08/26/25 05:32 Range/Units Whole Blood Glucose 115 H 70-110 MG/DL Sodium Level 143 136-145 mmol/L Potassium Level 3.4 L 3.5-5.1 mmol/L Chloride Level 110 101-111 mmol/L Carbon Dioxide Level 26 21-32 mmol/L Blood Urea Nitrogen 4 L 7-18 mg/dL Creatinine 0.5 0.5-1.0 mg/dL Glomerular Filtration Rate Calc 104 >90 mL/min Random Glucose 99 70-105 mg/dL Total Calcium 8.5 8.5-10.1 mg/dL Phosphorus Level 3.2 2.5-4.9 mg/dL Magnesium Level 1.50 L 1.80-2.40 mg/dL Total Bilirubin 0.1 L 0.2-1.0 mg/dL Aspartate Amino Transf (AST/SGOT) 18 10-37 U/L Alanine Aminotransferase (ALT/SGPT) 16 12-78 U/L Alkaline Phosphatase 81 50-136 U/L Total Protein 5.9 L 6.0-8.3 g/dL Albumin 2.9 L 3.5-5.0 g/dL DIAGNOSTICS / RADIOLOGY: [facility] [address] [place] [address] IMAGING REPORT Signed PATIENT: RORY GARCIA MR#: [id number] : 1960 SEX: F AGE: 65 LOCATION: [facility] ORDER STATUS: ADM IN [facility] REPORT#: [id number] SERVICE 1325 REASON: nausea/ vomiting x 3 days, UTI, CARY ORDERING PHYSICIAN: EFRAIN STACY MD PROCEDURE: ABD PEL WO - CT ABDOMEN/PELVIS W/O CONTRAST EXAM: CT Abdomen and Pelvis Without IV Contrast. CLINICAL HISTORY: Nausea/vomiting ??? 3 days, UTI, CARY. TECHNIQUE: Axial computed tomography images of the abdomen and pelvis were obtained without intravenous contrast. Multiplanar reformats were reviewed. CONTRAST: No IV contrast administered. DOSE SCAN DETAILS: No. Protocol # of Scans kVp CTDIvol (mGy) DLP (mGy???cm) 1 DualScano 1 120 ? 2 DualScano 1 120 ? 3 Helical 1 120 7.00 (Body) 376.90 (Body) Radiation Dose (From Helical Acquisition): CTDIvol: 7.00 mGy DLP: 376.90 mGy???cm COMPARISON: None provided. FINDINGS: LUNG BASES: Clear. No pleural effusion. LIVER: Unremarkable. GALLBLADDER AND BILE DUCTS: Surgically absent gallbladder. No intrahepatic or extrahepatic biliary dilatation. PANCREAS: Unremarkable. SPLEEN: Normal size and attenuation. ADRENAL GLANDS: Unremarkable. KIDNEYS, URETERS, AND BLADDER: Left renal calculus (0.5 cm) in the upper pole. No hydronephrosis or hydroureter. Urinary bladder unremarkable. STOMACH AND BOWEL: Uncomplicated colonic diverticulosis. No bowel wall thickening, obstruction, or inflammatory changes. Sliding hiatus hernia measuring 2.7 ??? 1.2 cm. APPENDIX: Not dilated; no periappendiceal inflammation. PERITONEUM: No free fluid or free air. ABDOMINAL WALL: Fascial defect at umbilical region measuring 1.5 cm containing fat???suggestive of a small fat-containing umbilical hernia. LYMPH NODES: No abnormally enlarged lymph nodes. REPRODUCTIVE ORGANS: Surgically absent uterus. Adnexal regions unremarkable. VASCULATURE: Aortoiliac vessels normal in calibre. No aneurysm. BONES: Degenerative thoracolumbar spondylosis. Grade I anterolisthesis of L3 over L4 secondary to facet arthropathy and pars defects. Loss of disc height at T10???T11 with endplate irregularities. No acute fracture. IMPRESSION: 1. Left renal calculus (0.5 cm) in the upper pole, without hydronephrosis or hydroureter. 2. Grade I anterolisthesis of L3 over L4 secondary to facet arthropathy and pars defects. 3. Degenerative thoracolumbar spondylosis, including loss of disc height at T10-T11 with endplate irregularities. No acute fracture. 4. Small fat-containing umbilical hernia, with fascial defect measuring 1.5 cm. 5. Sliding hiatus hernia (2.7 ??? 1.2 cm). 6. Uncomplicated colonic diverticulosis. 7. Surgically absent gallbladder and uterus. No intrahepatic or extrahepatic biliary dilatation. /[facility] DICTATED BY: ESTEFANY BROWN MD DATE: 08/24/251621 ELECTRONICALLY SIGNED BY: ESTEFANY BROWN MD DATE: 08/24/251621 PATIENT: RORY GARCIA MR#: [id number] : 1960 SEX: F AGE: 65 LOCATION: [facility] ORDER 105 STATUS: REG REPORT#: [id number] SERVICE 1050 REASON: cp ORDERING PHYSICIAN: KAREN SANCHEZ MD PROCEDURE: CXR1VW - CHEST 1VW EXAM: CR Chest, 1 View. CLINICAL HISTORY: cp COMPARISON: None provided. FINDINGS: LUNGS: There is no mass, infiltrate, or acute pulmonary abnormality. PLEURAL SPACES: No evidence of pleural effusion or pneumothorax. MEDIASTINUM: The cardiomediastinal silhouette is within normal limits. BONES: No aggressive appearing osseous lesion seen. IMPRESSION: No acute cardiopulmonary pathology is evident. /[facility] DICTATED BY: OLIMPIA HORN Jr., MD DATE: 08/24/25 135 ELECTRONICALLY SIGNED BY: OLIMPIA HORN Jr., MD DATE: 08/24/251355 PATIENT: RORY GARCIA MR#: [id number] : 1960 SEX: F AGE: 65 LOCATION: [facility] ORDER 1328 STATUS: ADM IN REPORT#: [id number] SERVICE REASON: weakness x 1 day ORDERING PHYSICIAN: EFRAIN STACY MD PROCEDURE: HEAD WO - CT HEAD/BRAIN W/O CONTRAST CT OF THE BRAIN WITHOUT CONTRAST CLINICAL INDICATION: Weakness for 1 day TECHNIQUE: Multiple contiguous axial CT images were obtained through the brain without the administration of intravenous contrast. Coronal and sagittal reconstructions were also obtained. COMPARISON: None available FINDINGS: The ventricular system and cortical sulci demonstrate a normal size and configuration for the patients age. There is patchy hypoattenuation of the periventricular matter bilaterally consistent with microangiopathic ischemic disease. There are no extra-axial collections, mass effect, or midline shift. The basal cisterns are patent. The pimentel-white matter differentiation is preserved. The midline structures and cervicomedullary junction are unremarkable. There is no evidence of acute intracranial hemorrhage or areas of acute territorial infarction. Vascular calcification is present. The calvarium is unremarkable in appearance. No suspicious lytic or sclerotic osseous lesions are seen. The visualized portions of the sinuses are well aerated. The mastoid air cells are well pneumatized and well aerated. The visualized orbital structures are unremarkable. IMPRESSION: 1. No CT evidence of an acute intracranial process. 2. 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 /[facility] DICTATED BY: MARCELLE OVIEDO MD DATE: 08/24/251525 ELECTRONICALLY SIGNED BY: MARCELLE OVIEDO MD DATE: 08/24/251525 ASSESSMENT: Suspected euglycemic DKA likely provoked by Farxiga use as outpatient, POA Acute kidney injury, POA Metabolic acidosis with compensated respiratory alkalosis, POA Acute on chronic iron deficiency anemia, POA Urinary Tract infection, POA Moderate hypokalemia, POA Rule out chronic GI bleeding, POA Prior history of gastric ulcer, POA History of hemorrhoids, POA Type 2 diabetes mellitus, POA Hypertension, POA Hyperlipidemia, POA Thrombocytosis, POA PLAN: Labs, diagnostic, radiologic exams reviewed and interpreted by myself and supervising physician. We have reviewed external records in detail Case management coordinating SNF placement Potassium replacement has been ordered Continue with the IV iron Continue with the antibiotics. Require close monitoring of renal function and electrolytes Order CBC, CMP, and electrolytes in am BiPAP as necessary, for respiratory distress Monitor blood pressure adjust medication doses as needed Avoid hypotensive episodes May use Dilaudid 0.5 mg IV every 6 hours as needed for severe pain Monitor blood sugars Strict intake, output, and daily weight should be monitored Please renally adjust medications Avoid nephrotoxic and nonsteroidal drugs Avoid contrast if possible Will continue to monitor renal function, anemia, electrolytes Treatment plan discussed with patient Questions were answered We have discussed with the other team physicians in detail about the care plan We will continue to monitor the patient closely ATTESTATION BY PHYSICIAN I have seen and examined the patient. I reviewed the documentation, medical decision making, and treatment plan as noted by the mid-level provider above. I agree with the findings and plan of care. SCOTTY COLEMAN MD, ELIZABETH FNP Aug 27, 2025 13:37
--- NOTE | 2025-08-27 14:06 | NUR ---
DCP UPDATE/ W OF H UPDATE: NOEL FOR [facility] SIGNED AND SENT TO CENTRAL ADMISSION PATIENT WAS DECLINED BY [facility] OF AN OPEN MEDICARE CLAIM W MEDICARE A SECONDARY PAYOR. PENNIE FROM [facility] ADVISED THAT IS NOT A BARRIER TO ACCEPTANCE AT [facility]. FAMILY AWAITING VISIT FROM REP
--- NOTE | 2025-08-27 17:24 | PN ---
[facility] PROGRESS NOTE Date of Service: Aug 27, 2025 Time of Service: 17:03 This is a 65-year-old female with underlying history of chronic anemia, history of iron deficiency, prior history of GI bleed, hemorrhoids, hypertension, type 2 diabetes mellitus maintained on outpatient treatment with SGLT2 inhibitor with Farxiga, history of gastric ulcer who presented to the ER for further evaluation of dizziness, generalized weakness, poor oral intake with nausea and vomiting. Symptoms have been ongoing since yesterday. Son reports that patient was recently diagnosed with urinary tract infection and was started on outpatient treated with oral Bactrim. She has been holding Farxiga for last 2-3 days due to UTI. She has been having poor oral intake, some suprapubic discomfort. Today, she was having shortness of breath with exertion and tachypnea, she was feeling dizzy and felt lightheaded. Symptoms have been nonresolving prompting her to come to the ER for further evaluation. Patient previously has been hospitalized in [facility] in 06/2024 when she had hematochezia. She reports having previous history of blood transfusion as well. She had a upper endoscopy in in 06/2024 which showed nonbleeding gastric ulcer. Patient also has a history of hemorrhoids. She denies having hematemesis, hematochezia or melena. Son has noticed that patient was having some blood in the urine with her recent UTI. She is currently not taking iron supplementation. Patient denies any previous history of chronic kidney disease. She has been a diabetic for about one year and has been on Farxiga chronically. On presentation, patient was noted to be afebrile with T-max of 98.1 F, heart rate of 94, blood pressure 109/54. Labs on presentation showed WBC count of 5900, hemoglobin 7.4, MCV of 66.4, platelet count of [id number]. BMP showed sodium of 138, potassium 2.9, bicarb is 19, BUN of 17 , creatinine 2.6, blood ketone of 1.5, blood glucose of 179. X-ray showed no acute infiltrates. ABG showed pH of 7.38, pCO2 of 27, bicarb of 15, lactic acid of one. SUBJECTIVE: 08/25/25: Patient was evaluated in room 216. Patient speaks Algerian, so nurse was present as a dressing room attendant. Patient reports feeling better. today her anion gap has dropped down to 8mEq/L today from 18mEq/L during admission. Blood glucose level today was 99, so the insulin drip was stopped and patient was downgraded from ICU to Med/surg floors. Labs today Hb-7.6, Albumin 3.0 and ABG from 08/24/25 was pH-7.38, Pco2-27, PO2-94.2, Hco3-15.6. 08/26/25: Patient was evaluated in room 216. Patient speaks Algerian, so nurse was present as a dressing room attendant. Patient reports feeling fatigued and has generalized weakness. her HB today was 8.0. GI was consulted to evaluate for her anemia. She has H/O nonbleeding gastric ulcers, hemorrhoids. She is currently on IV Venofer. Blood glucose levels today was 99. she is currently on 10 units ins ulin lantus, and as per endocrinology recommendations, she was advised to change from high dose to low dose insulin sliding scale. 08/27/25: Patient was evaluated in room 216. Patient speaks Algerian, so nurse was present as a dressing room attendant. Patient report feeling better today and doesn't have any active complaints. Patient underwent EGD today which revealed normal results and no active site of bleeding. Patient denies any dizziness, fatigue, nausea, vomiting. Her anion gap today was 7 and blood glucose levels around 16:43 was 92. Patient was declined by lana so we are waiting for the [facility] approval. REVIEW OF SYSTEMS CONSTITUTIONAL: poor oral intake, malaise, fatigue NEUROLOGICAL: Denies headache, amaurosis fugax, motor weakness, sensory deficit, vertigo/spinning sensation, gait abnormalities, or tremors. ENT: No hearing loss, otalgia, otorrhea, rhinitis, rhinorrhea, hoarseness, or sore throat. CARDIOVASCULAR: Denies any exertional angina, dyspnea on exertion, orthopnea, paroxysmal nocturnal dyspnea, palpitations, life-threatening arrhythmias, claudication. PULMONARY: Denies any shortness of breath, cough, phlegm/sputum, hemoptysis, pleuritic chest pain. SLEEP: Denies morning headaches, daytime somnolence or napping. Denies difficulty falling asleep, staying asleep, waking from sleep. Denies knowledge of snoring. GASTROINTESTINAL: nausea and vomiting, some suprapubic discomfort GENITOURINARY: Denies frequency, urgency, nocturia, hematuria or incontinence (Storage/Irritative symptoms.) Low urinary stream, straining to void, urinary intermittency or hesitancy, splitting of the voiding stream, terminal dribbling. ENDOCRINOLOGIC: Denies polyuria, polydipsia, polyphagia or heat/cold intolerances. HEMATOLOGIC: Denies thrombophilia/previous clots, or coagulopathy/bleeding disorders. ONCOLOGIC: Denies personal history of malignancy. DERMATOLOGIC: Denies rashes or pruritus. PSYCHIATRIC: Denies any suicidal or homicidal ideation. Denies hallucinations. PHYSICAL EXAM: GENERAL APPEARANCE: The patient is awake, alert, and oriented, in no acute cardiopulmonary distress. NEUROLOGICAL: Cranial nerves II-XII grossly intact. Motor is 5/5 in bilateral upper and lower extremities proximal to distal. No sensory deficits. HEENT: Face is symmetric. Pupils are equal and reactive. Extraocular movements are intact. NECK: Supple. No JVD. No thyromegaly. No submental, submandibular, pre- /postauricular, occipital or supraclavicular lymphadenopathy. CHEST: Normal chest expansion. No Telemetry. LUNGS: Absence of any rales, rhonchi or any wheezing. CARDIOVASCULAR: Regular. S1 and S2 normal. No appreciable rubs, murmurs or gallops. ABDOMEN: Soft, nontender, and nondistended. There is no rebound, voluntary guarding, or rigidity. mild suprapubic discomfort : Deferred. No Pandey. EXTREMITIES: Non-edematous and not cyanotic. No clubbing. Good capillary refill. SKIN: No skin breakdown. Vital Signs (last 8hr) Date Time Temp Pulse Resp B/P (MAP) Pulse Ox O2 Delivery O2 Flow Rate FiO2 08/27/25 12:00 98.1 82 20 140/59 100 Room Air 08/27/25 10:30 95 Room Air* 0 21 08/27/25 09:15 97.3 71 17 149/61 98 Room Air 2.0 24 08/27/25 09:10 97.3 66 17 140/63 99 Room Air 2.0 24 08/27/25 09:05 97.3 69 17 145/59 98 Room Air 2.0 24 LABS: Laboratory: Test 08/27/25 16:43 08/27/25 12:00 08/27/25 05:49 08/26/25 05:32 Range/Units Whole Blood Glucose 92 70-110 MG/DL Stool Occult Blood NEGATIVE NEGATIVE White Blood Count 4.6 L 4.8-10.8 K/uL Red Blood Count 4.18 4.00-5.50 MIL/uL Hemoglobin 8.3 L 12.0-16.0 g/dL Hematocrit 28.6 L 36-48 % Mean Corpuscular Volume 68.4 L 79-99 fL Mean Corpuscular Hemoglobin 19.9 L 27.0-33.0 pg Mean Corpuscular Hemoglobin Concent 29.0 L 32.0-36.0 g/dL Red Cell Distribution Width 22.8 H 11.0-15.5 % Platelet Count 536 H 130-400 K/uL Mean Platelet Volume 8.7 7.5-10.5 fL Immature Granulocyte % (Auto) 0.2 0-1 % Neutrophils (%) (Auto) 46.8 40.0-77.0 % Lymphocytes (%) (Auto) 32.7 21.0-51.0 % Monocytes (%) (Auto) 9.6 3.0-13.0 % Eosinophils (%) (Auto) 9.4 H 0.0-8.0 % Basophils (%) (Auto) 1.3 0.0-5.0 % Neutrophils # (Auto) 2.2 1.8-7.7 K/uL Lymphocytes # (Auto) 1.5 1.0-4.8 K/uL Monocytes # (Auto) 0.4 0.1-1.0 K/uL Eosinophils # (Auto) 0.43 0.00-0.70 K/uL Basophils # (Auto) 0.06 0.00-0.20 K/uL Absolute Immature Granulocyte (auto 0.01 0-1 K/uL Nucleated Red Blood Cells 0.0 0.0-0.19 % Sodium Level 143 136-145 mmol/L Potassium Level 3.4 L 3.5-5.1 mmol/L Chloride Level 110 101-111 mmol/L Carbon Dioxide Level 26 21-32 mmol/L Blood Urea Nitrogen 4 L 7-18 mg/dL Creatinine 0.5 0.5-1.0 mg/dL Glomerular Filtration Rate Calc 104 >90 mL/min Random Glucose 99 70-105 mg/dL Total Calcium 8.5 8.5-10.1 mg/dL Phosphorus Level 3.2 2.5-4.9 mg/dL Magnesium Level 1.50 L 1.80-2.40 mg/dL Segmented Neutrophils % 61 40-70 % Lymphocytes % (Manual) 23 22-44 % Monocytes % (Manual) 6 2-9 % Eosinophils % (Manual) 4 1-6 % Basophils % (Manual) 1 0-2 % Differential Comment MANUAL DIFFERENTIAL Reactive Lymphocytes 5 H 0-0 % White Cell Morphology Comment See comments Platelet Morphology Comment SLIGHT INCREASED Red Blood Cell Morphology See comments Total Bilirubin 0.1 L 0.2-1.0 mg/dL Aspartate Amino Transf (AST/SGOT) 18 10-37 U/L Alanine Aminotransferase (ALT/SGPT) 16 12-78 U/L Alkaline Phosphatase 81 50-136 U/L Total Protein 5.9 L 6.0-8.3 g/dL Albumin 2.9 L 3.5-5.0 g/dL Current Medications Medications (Trade) Dose Ordered Sig/Sylvester Route PRN Reason Start Time Stop Time Status Last Admin Dose Admin Albuterol (DUOneb) 1 udvial Q6H PRN IH SHORTNESS OF BREATH 08/24/25 14:00 09/23/25 13:59 Atorvastatin Calcium (LIPItor 20MG) 20 mg HS PO 08/26/25 21:00 09/25/25 20:59 08/26/25 21:16 20 MG Ceftriaxone Sodium (ROCEphine 1G INJ) 1 gm Q12H IVPB 08/24/25 13:30 09/03/25 13:29 08/27/25 13:42 1 GM Citalopram Hydrobromide (CeleXA 20MG TAB) 20 mg DAILY PO 08/27/25 09:00 09/26/25 08:59 08/27/25 10:30 20 MG Dextrose/Sodium Chloride 1,000 ml @ 0 mls/hr AD IV 08/24/25 14:00 08/24/25 20:50 DC Gabapentin (NEURontin 100 mg CAP) 100 mg HS PO 08/26/25 21:00 09/25/25 20:59 08/26/25 21:16 100 MG Home Med (Home Medication) (Cholecalciferol (Vitamin D3) (D3-5000) ... DAILY PO 08/27/25 09:00 09/26/25 08:59 Home Med (Home Medication) Olmesartan 5MG 1 TAB HS PO 08/27/25 21:00 09/26/25 20:59 Hydralazine HCl (APRESOLine 20MG INJ) 10 mg Q6H PRN IV ADMINISTER FOR SBP > 160 08/27/25 01:30 09/26/25 01:29 08/27/25 01:17 10 MG Insulin Glargine (LANtus 100 UNITS/ML 10 ML VIAL) 10 units BID@0730,2100 SQ 08/25/25 07:30 09/24/25 07:29 08/26/25 21:19 10 UNITS Insulin Human Regular (humuLIN R 100 UNIT/ML 3ML) INSULIN SLIDING SCAL... ACHS SQ 08/25/25 07:30 08/25/25 21:53 DC Insulin Human Regular (humuLIN R 100 UNIT/ML 3ML) INSULIN SLIDING SCAL... ACHS SQ 08/26/25 07:30 09/25/25 07:29 Insulin Human Regular 100 unit/ Sodium Chloride 101 ml @ 0 mls/hr PROTOCOL IV 08/24/25 14:00 08/24/25 20:50 DC 08/24/25 17:32 0 MLS/HR Iron Sucrose 300 mg/Sodium Chloride 250 ml @ 83 mls/hr DAILY IV 08/25/25 09:00 08/27/25 10:00 DC 08/27/25 13:57 83 MLS/HR Lactated Ringer's 1,000 ml @ 150 mls/hr Q6H40M IV 08/24/25 21:00 09/23/25 20:59 08/27/25 16:06 150 MLS/HR Magnesium Sulfate 50 ml @ 0 mls/hr PROTOCOL IV 08/24/25 14:00 09/23/25 13:59 08/27/25 13:57 50 MLS/HR Magnesium Sulfate 50 ml @ 0 mls/hr PROTOCOL PRN IV LOW MG 08/27/25 13:30 08/27/25 13:03 DC Pantoprazole Sodium (PROTonix 40MG INJ) 40 mg Q12H IVP 08/24/25 13:30 09/23/25 13:29 08/27/25 13:42 40 MG Phenazopyridine HCl (PYRIdium HCL 200 MG TAB) 200 mg Q8H PRN PO OTHER [SEE ORDER COMMENTS] 10/15/25 22:00 08/24/25 22:05 DC Potassium Chloride 20 meq/ Sodium Chloride 1,010 ml @ 0 mls/hr PROTOCOL IV 08/24/25 14:00 08/24/25 20:50 DC Potassium Chloride/Dextrose/ Sod Cl 1,000 ml @ 0 mls/hr AD IV 08/24/25 14:00 08/24/25 20:50 DC 08/24/25 16:10 150 MLS/HR Potassium Chloride 100 ml @ 100 mls/hr AD PRN IV POTASSIUM PROTOCOL 08/24/25 14:00 09/23/25 13:59 08/27/25 08:00 100 MLS/HR Potassium Chloride 100 ml @ 0 mls/hr PROTOCOL PRN IV DKA POTASSIUM REPLACEMENT 08/24/25 14:00 08/24/25 20:50 DC Potassium Chloride (K-Dur/Klor-Con 20meq) 20 meq AD PRN PO POTASSIUM PROTOCOL 08/24/25 14:00 09/23/25 13:59 08/26/25 18:09 20 MEQ Potassium Chloride (KCl 10% Elixir 20meq/15ml) 20 meq AD PRN PO POTASSIUM PROTOCOL 08/24/25 14:00 09/23/25 13:59 08/25/25 06:18 20 MEQ Sodium Chloride 1,000 ml @ 75 mls/hr [id number] IV 08/24/25 13:30 08/24/25 13:34 DC Sodium Chloride 1,000 ml @ 75 mls/hr [id number] IV 08/24/25 13:30 08/24/25 14:11 DC 08/24/25 13:59 75 MLS/HR Sodium Chloride 1,000 ml @ 200 mls/hr PROTOCOL IV 08/24/25 14:00 08/24/25 20:50 DC Thiamine HCl (Vitamin B-1) 100 mg Q24H IVP 08/24/25 13:30 09/23/25 13:29 08/27/25 13:42 100 MG Vitamin B Complex/ Vit C/Folic Acid (Nephrovite Tablet) 1 cap DAILY PO 08/25/25 09:00 08/25/25 08:19 DC Vitamin B Complex/ Vit C/Folic Acid (Nephrovite Tablet) 1 cap DAILY PO 08/25/25 09:00 09/24/25 08:59 08/27/25 10:30 1 CAP DIAGNOSTICS / RADIOLOGY: [facility] [address] [place] [address] IMAGING REPORT Signed PATIENT: RORY GARCIA MR#: [id number] : 1960 SEX: F AGE: 65 LOCATION: [facility] ORDER STATUS: ADM IN [facility] REPORT#: [id number] SERVICE 24 REASON: nausea/ vomiting x 3 days, UTI, CARY ORDERING PHYSICIAN: EFRAIN STACY MD PROCEDURE: ABD PEL WO - CT ABDOMEN/PELVIS W/O CONTRAST EXAM: CT Abdomen and Pelvis Without IV Contrast. CLINICAL HISTORY: Nausea/vomiting ??? 3 days, UTI, CARY. TECHNIQUE: Axial computed tomography images of the abdomen and pelvis were obtained without intravenous contrast. Multiplanar reformats were reviewed. CONTRAST: No IV contrast administered. DOSE SCAN DETAILS: No. Protocol # of Scans kVp CTDIvol (mGy) DLP (mGy???cm) 1 DualScano 1 120 ? 2 DualScano 1 120 ? 3 Helical 1 120 7.00 (Body) 376.90 (Body) Radiation Dose (From Helical Acquisition): CTDIvol: 7.00 mGy DLP: 376.90 mGy???cm COMPARISON: None provided. FINDINGS: LUNG BASES: Clear. No pleural effusion. LIVER: Unremarkable. GALLBLADDER AND BILE DUCTS: Surgically absent gallbladder. No intrahepatic or extrahepatic biliary dilatation. PANCREAS: Unremarkable. SPLEEN: Normal size and attenuation. ADRENAL GLANDS: Unremarkable. KIDNEYS, URETERS, AND BLADDER: Left renal calculus (0.5 cm) in the upper pole. No hydronephrosis or hydroureter. Urinary bladder unremarkable. STOMACH AND BOWEL: Uncomplicated colonic diverticulosis. No bowel wall thickening, obstruction, or inflammatory changes. Sliding hiatus hernia measuring 2.7 ??? 1.2 cm. APPENDIX: Not dilated; no periappendiceal inflammation. PERITONEUM: No free fluid or free air. ABDOMINAL WALL: Fascial defect at umbilical region measuring 1.5 cm containing fat???suggestive of a small fat-containing umbilical hernia. LYMPH NODES: No abnormally enlarged lymph nodes. REPRODUCTIVE ORGANS: Surgically absent uterus. Adnexal regions unremarkable. VASCULATURE: Aortoiliac vessels normal in calibre. No aneurysm. BONES: Degenerative thoracolumbar spondylosis. Grade I anterolisthesis of L3 over L4 secondary to facet arthropathy and pars defects. Loss of disc height at T10???T11 with endplate irregularities. No acute fractu re. IMPRESSION: 1. Left renal calculus (0.5 cm) in the upper pole, without hydronephrosis or hydroureter. 2. Grade I anterolisthesis of L3 over L4 secondary to facet arthropathy and pars defects. 3. Degenerative thoracolumbar spondylosis, including loss of disc height at T10-T11 with endplate irregularities. No acute fracture. 4. Small fat-containing umbilical hernia, with fascial defect measuring 1.5 cm. 5. Sliding hiatus hernia (2.7 ??? 1.2 cm). 6. Uncomplicated colonic diverticulosis. 7. Surgically absent gallbladder and uterus. No intrahepatic or extrahepatic biliary dilatation. /[place] DICTATED BY: ESTEFANY BROWN MD DATE: 08/24/251621 ELECTRONICALLY SIGNED BY: ESTEFANY BROWN MD DATE: 08/24/251621 ASSESSMENT: Suspected euglycemic DKA likely provoked by Farxiga use as outpatient, POA Acute kidney injury, POA Metabolic acidosis with compensated respiratory alkalosis, POA Acute on chronic iron deficiency anemia, POA Urinary Tract infection, POA Moderate hypokalemia, POA Rule out chronic GI bleeding, POA Prior history of gastric ulcer, POA History of hemorrhoids, POA Type 2 diabetes mellitus, POA Hypertension, POA Hyperlipidemia, POA Thrombocytosis, POA PLAN: Suspected euglycemic DKA likely provoked by Farxiga use as outpatient, POA * On presentation sodium of 138, potassium 2.9, bicarb is 19, BUN of 17 , cr eatinine 2.6, blood ketone of 1.5, blood glucose of 179. [id number] * Potassium was replaced as per protocol recent trends are- 2. 9>3.8>3.4>3.6>3.4>3.4 * ABG showed pH of 7.38, pCO2 of 27, bicarb of 15, lactic acid of one. Urine Ketones-5 * Farxiga was discontinued. * Endocrinology was consulted and is currently on the case. * Received oral potassium supplementation and once potassium crossed greater than 3.3, low dose insulin drip was started. * Patient was on insulin drip until 8pm of 08/24/25, and was given 10 units of lantus. Later she was started on Ringer Lactate with Q4 glucose monitoring. * Today Lantus 10 units was held in the morning due to scheduled EGD as the patient was NPO. But will continue on lantus 10 units, with regular glucose monitoring, and as per endocrinology recommendations, she was advised to change from high dose to low dose insulin sliding scale. Metabolic acidosis with compensated respiratory alkalosis, POA * ABG showed pH of 7.38, pCO2 of 27, bicarb of 15, lactic acid of one with compensated respiratory alkalosis * Anion gap has dropped down to 8mEq/L today from 18mEq/L during admission. Patient was downgraded from ICU to Med/surg floors. * Today the anion gap was 7(08/27/25) with blood glucose level of 92 * Will continue to monitor with daily labs. Acute kidney injury, POA * BMP on 08/24/25 showed sodium of 138, potassium 2.9, bicarb is 19, BUN of 17 , creatinine 2.6, GFR-31. * Patient was started on IV hydration. Losartan was held from 08/24/25. Bactrim was held due to likely contributing towards the CARY. * BUN trends 15>11>5>4, Cr-2.6>1.6>1.0>0.6>0.5. GFR-31>36>63>100>104 * Nephrology was consulted and is currently on the case, will follow their recommendations. * Will continue to monitor with daily labs. Urinary Tract infection, POA * Urinalysis showed cloudy appearance, Urine protein - 50, Urine occult blood- Moderate, Urine leukocyte esterase-75, Urine WBC-11-25. * Bactrim was held. Started the patient on Rocephin twice daily (day3). * WBC trends 5.9>5.6>4.3>4.6 * Urine culture was ordered, results show no growth. * Will continue to monitor with daily labs. Acute on chronic iron deficiency anemia, POA: * Recent Hb trends-7.4>6.9>8.4>7.6>8.0>8.3. One unit of leukocyte reduced RBC was transfused on 08/24/25. * Iron panel was ordered, Iron - 13, TIBC-456, %saturation-2.8, Ferritin-8 * Last dose IV iron sucrose infusion was given today(08/27/25). * GI was consulted for H/O nonbleeding gastric ulcer, hemorrhoids. EGD was done which showed no active site of bleeding and the reports were unremarkable. * H&H will be monitored closely. Thrombocytosis, POA * Platelets trends 760>568>521>536. * Thrombocytosis likely reactive from underlying iron deficiency anemia. * Will continue to monitor with daily labs. ATTESTATION BY PHYSICIAN I have seen and examined the patient. I reviewed the documentation, medical decision making, and treatment plan as noted by the resident physician above. I agree with the findings and plan of care. KENJI SHI MD, SHAJI MD Aug 27, 2025 17:24
--- NOTE | 2025-08-27 19:55 | NUR ---
MEDS SHIFT ASSESSMENT DONE, PLEASE REFER TO CHART. DUE MEDS ADMINISTERED, TOLERATED WELL. PCP ASSISTED PT TO THE RESTROOM THEN BACK IN BED. KEPT RESTED AND COMFORTABLE IN BED. CALL LIGHT WITHIN REACH. BED ALARM ACTIVATED.
[2025-08-27] MEDS: OLMESARTAN 5 MG PO SCH (19:58)
--- NOTE | 2025-08-27 21:36 | PN ---
Endocrinology progress note DOS: 08/27/25 subjective: glucose are stable. home regimen: farxiga 10 mg daily but did not take for 10 days. REVIEW OF SYSTEMS CONSTITUTIONAL: poor oral intake, malaise, fatigue NEUROLOGICAL: Denies headache, amaurosis fugax, motor weakness, sensory deficit, vertigo/spinning sensation, gait abnormalities, or tremors. ENT: No hearing loss, otalgia, otorrhea, rhinitis, rhinorrhea, hoarseness, or sore throat. CARDIOVASCULAR: Denies any exertional angina, dyspnea on exertion, orthopnea, paroxysmal nocturnal dyspnea, palpitations, life-threatening arrhythmias, claudication. PULMONARY: Denies any shortness of breath, cough, phlegm/sputum, hemoptysis, pleuritic chest pain. SLEEP: Denies morning headaches, daytime somnolence or napping. Denies difficulty falling asleep, staying asleep, waking from sleep. Denies knowledge of snoring. GASTROINTESTINAL: nausea and vomiting, some suprapubic discomfort GENITOURINARY: Denies frequency, urgency, nocturia, hematuria or incontinence (Storage/Irritative symptoms.) Low urinary stream, straining to void, urinary intermittency or hesitancy, splitting of the voiding stream, terminal dribbling. ENDOCRINOLOGIC: Denies polyuria, polydipsia, polyphagia or heat/cold intolerances. HEMATOLOGIC: Denies thrombophilia/previous clots, or coagulopathy/bleeding disorders. ONCOLOGIC: Denies personal history of malignancy. DERMATOLOGIC: Denies rashes or pruritus. PSYCHIATRIC: Denies any suicidal or homicidal ideation. Denies hallucinations. PAST MEDICAL HISTORY: Hypertension, hyperlipidemia, type 2 diabetes mellitus maintained on outpatient treatment with Farxiga, prior history of UTI, history of chronic iron deficiency anemia, prior history of hemorrhoids with gastric ulcer disease PAST SURGICAL HISTORY: Reports having had previous history of EGD in 06/2024, history of colonoscopy previously, history of cholecystectomy, history of hysterectomy, prior history of right shoulder rotator cuff surgery PAST SOCIAL HISTORY: Denies history of active smoking or alcohol consumption, resides alone at home, typically she is independent with ADLs and IADLs FAMILY HISTORY: Denies pertinent family history Allergies: No known drug allergies Medications: Farxiga 10 mg daily, losartan 50 mg twice daily, patient has been started recently on Bactrim for treatment of urinary tract infection Coded Allergies: No Known Drug Allergies (Verified Allergy, Unknown, 06/18/24) DIAGNOSTICS / RADIOLOGY: SERVICE REASON: weakness x 1 day ORDERING PHYSICIAN: EFRAIN STACY MD PROCEDURE: HEAD WO - CT HEAD/BRAIN W/O CONTRAST CT OF THE BRAIN WITHOUT CONTRAST CLINICAL INDICATION: Weakness for 1 day TECHNIQUE: Multiple contiguous axial CT images were obtained through the brain without the administration of intravenous contrast. Coronal and sagittal reconstructions were also obtained. COMPARISON: None available FINDINGS: The ventricular system and cortical sulci demonstrate a normal size and configuration for the patients age. There is patchy hypoattenuation of the periventricular matter bilaterally consistent with microangiopathic ischemic disease. There are no extra-axial collections, mass effect, or midline shift. The basal cisterns are patent. The pimentel-white matter differentiation is preserved. The midline structures and cervicomedullary junction are unremarkable. There is no evidence of acute intracranial hemorrhage or areas of acute territorial infarction. Vascular calcification is present. The calvarium is unremarkable in appearance. No suspicious lytic or sclerotic osseous lesions are seen. The visualized portions of the sinuses are well aerated. The mastoid air cells are well pneumatized and well aerated. The visualized orbital structures are unremarkable. IMPRESSION: 1. No CT evidence of an acute intracranial process. 2. 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 /[place] DICTATED BY: MARCELLE OVIDEO MD DATE: 08/24/25 1526 ELECTRONICALLY SIGNED ASSESSMENT: euglycemic DKA was suspected by Farxiga use as outpatient, POA Home diabetic regimen: off farxiga 10 mg for 2 weeks Hba1c 7.2% my suspicion is low for euglycemic dka as she is off farxiga for 10 days. reports UTI due to farxiga. Type 2 diabetes mellitus, POA Acute kidney injury, POA improving Metabolic acidosis with compensated respiratory alkalosis, POA Acute on chronic iron deficiency anemia, POA Urinary Tract infection, POA Moderate hypokalemia, POA Rule out chronic GI bleeding, POA Prior history of gastric ulcer, POA History of hemorrhoids, POA Hypertension, POA Hyperlipidemia, POA Thrombocytosis, POA Urinary tract infection, POA PLAN: continue Lantus 10 units daily and adjust for fasting glucose. continue low dose sliding scale insulin. Monitor glucose q x 6 hourly. Continue carb consistent diet. Keep glucose less than 180 mg/dl. Patient was recommended to stop farxiga due to recurrent UTI but refused. she wants to follow up with pcp for diabetic meds change. Vitals/Labs Vital Signs Date Time Temp Pulse Resp B/P (MAP) Pulse Ox O2 Delivery O2 Flow Rate FiO2 08/27/25 20:00 98.2 79 18 157/93 100 Room Air 08/27/25 18:50 21 08/27/25 10:30 0 Laboratory Tests 08/27/25 05:49 Medications Current Medications Sodium Chloride 1,000 ml @ 0 mls/hr ONCE ONCE IV Last administered on 08/24/25at 12:29; Start 08/24/25 at 12:00; Stop 08/24/25 at 12:01; Status DC Pantoprazole Sodium 40 mg Q12H IVP Last administered on 08/27/25at 13:42; Start 08/24/25 at 13:30; Stop 09/23/25 at 13:29 Thiamine HCl 100 mg Q24H IVP Last administered on 08/27/25at 13:42; Start 08/24/25 at 13:30; Stop 09/23/25 at 13:29 Vitamin B Complex/ Vit C/Folic Acid 1 cap DAILY PO; Start 08/25/25 at 09:00; Stop 08/25/25 at 08:19; Status DC Ceftriaxone Sodium 1 gm Q12H IVPB Last administered on 08/27/25at 13:42; Start 08/24/25 at 13:30; Stop 09/03/25 at 13:29 Sodium Chloride 1,000 ml @ 75 mls/hr [id number] IV Last administered on 08/24/25at 13:59; Start 08/24/25 at 13:30; Stop 08/24/25 at 14:11; Status DC Sodium Chloride 1,000 ml @ 75 mls/hr [id number] IV; Start 08/24/25 at 13:30; Stop 08/24/25 at 13:34; Status DC Albuterol 1 udvial Q6H PRN IH; Start 08/24/25 at 14:00; Stop 09/23/25 at 13:59 Potassium Chloride 100 ml @ 100 mls/hr AD PRN IV Last administered on 08/27/25at 08:00; Start 08/24/25 at 14:00; Stop 09/23/25 at 13:59 Potassium Chloride 20 meq AD PRN PO Last administered on 08/25/25at 06:18; Start 08/24/25 at 14:00; Stop 09/23/25 at 13:59 Potassium Chloride 20 meq AD PRN PO Last administered on 08/27/25at 19:55; Start 08/24/25 at 14:00; Stop 09/23/25 at 13:59 Magnesium Sulfate 50 ml @ 0 mls/hr PROTOCOL IV Last administered on 08/27/25at 13:57; Start 08/24/25 at 14:00; Stop 09/23/25 at 13:59 Sodium Chloride 1,000 ml @ 200 mls/hr PROTOCOL IV; Start 08/24/25 at 14:00; Stop 08/24/25 at 20:50; Status DC Potassium Chloride/Dextrose/ Sod Cl 1,000 ml @ 0 mls/hr AD IV Last administered on 08/24/25at 16:10; Start 08/24/25 at 14:00; Stop 08/24/25 at 20:50; Status DC Potassium Chloride 20 meq/ Sodium Chloride 1,010 ml @ 0 mls/hr PROTOCOL IV; Start 08/24/25 at 14:00; Stop 08/24/25 at 20:50; Status DC Potassium Chloride 100 ml @ 0 mls/hr PROTOCOL PRN IV; Start 08/24/25 at 14:00; Stop 08/24/25 at 20:50; Status DC Insulin Human Regular 100 unit/ Sodium Chloride 101 ml @ 0 mls/hr PROTOCOL IV Last administered on 08/24/25at 17:32; Start 08/24/25 at 14:00; Stop 08/24/25 at 20:50; Status DC Dextrose/Sodium Chloride 1,000 ml @ 0 mls/hr AD IV; Start 08/24/25 at 14:00; Stop 08/24/25 at 20:50; Status DC Iron Sucrose 300 mg/Sodium Chloride 250 ml @ 83 mls/hr DAILY IV Last administered on 08/27/25at 13:57; Start 08/25/25 at 09:00; Stop 08/27/25 at 10:00; Status DC Lactated Ringer's 1,000 ml @ 150 mls/hr [id number] IV Last administered on 08/27/25at 16:06; Start 08/24/25 at 21:00; Stop 08/27/25 at 19:52; Status DC Insulin Glargine 10 units ONCE ONCE SQ Last administered on 08/24/25at 21:05; Start 08/24/25 at 21:00; Stop 08/24/25 at 21:01; Status DC Insulin Human Regular INSULIN SLIDING SCAL... ACHS SQ; Start 08/25/25 at 07:30; Stop 08/25/25 at 21:53; Status DC Insulin Glargine 10 units BID@0730,2100 SQ Last administered on 08/27/25at 20:23; Start 08/25/25 at 07:30; Stop 09/24/25 at 07:29 Phenazopyridine HCl 200 mg Q8H PRN PO; Start 08/24/25 at 22:00; Stop 08/24/25 at 22:05; Status DC Vitamin B Complex/ Vit C/Folic Acid 1 cap DAILY PO Last administered on 08/27/25at 10:30; Start 08/25/25 at 09:00; Stop 09/24/25 at 08:59 Insulin Human Regular INSULIN SLIDING SCAL... ACHS SQ; Start 08/26/25 at 07:30; Stop 09/25/25 at 07:29 Atorvastatin Calcium 20 mg HS PO Last administered on 08/27/25at 19:55; Start 08/26/25 at 21:00; Stop 09/25/25 at 20:59 Gabapentin 100 mg HS PO Last administered on 08/27/25at 19:55; Start 08/26/25 at 21:00; Stop 09/25/25 at 20:59 Home Med (Cholecalciferol (Vitamin D3) (D3-5000) ... DAILY PO; Start 08/27/25 at 09:00; Stop 09/26/25 at 08:59 Citalopram Hydrobromide 20 mg DAILY PO Last administered on 08/27/25at 10:30; Start 08/27/25 at 09:00; Stop 09/26/25 at 08:59 Hydralazine HCl 10 mg Q6H PRN IV Last administered on 08/27/25at 01:17; Start 08/27/25 at 01:30; Stop 09/26/25 at 01:29 Home Med Olmesartan 5MG 1 TAB HS PO; Start 08/27/25 at 21:00; Stop 09/26/25 at 20:59 Ketamine HCl 50 mg STK-MED ONCE .ROUTE; Start 08/27/25 at 08:41; Stop 08/27/25 at 08:41; Status DC Propofol 200 mg STK-MED ONCE IV; Start 08/27/25 at 08:41; Stop 08/27/25 at 08:41; Status DC Lidocaine HCl 100 mg STK-MED ONCE .ROUTE; Start 08/27/25 at 08:41; Stop 08/27/25 at 08:41; Status DC Magnesium Sulfate 50 ml @ 0 mls/hr PROTOCOL PRN IV; Start 08/27/25 at 13:30; Stop 08/27/25 at 13:03; Status DC MARCO ANTONIO KAUR MD Aug 27, 2025 21:36
[2025-08-28] VITALS (7 sets, daily range): BP systolic 129–158; BP diastolic 64–79; PULSE 77–88; RESP 18–20; TEMP 97.6–99; O2SAT 91–99
[2025-08-28 04:27] LABS: IMMATURE GRANULOCYTE ABSOLUTE 0.02 K/uL (0-1); NUCLEATED RED BLOOD CELLS 0.0 % (0.0-0.19); PLATELET COUNT (AUTO) 483 K/uL (130-400); RED BLOOD CELL COUNT(AUTO) 4.29 MIL/uL (4.00-5.50); RED CELL DISTRIBUTION WIDTH 23.2 % (11.0-15.5); WHITE BLOOD COUNT (AUTO) 4.1 K/uL (4.8-10.8)
[2025-08-28 04:58] LABS: ASPARTATE AMINOTRANSFERASE 19.0 U/L (10-37); CREATININE 0.5 mg/dL (0.5-1.0); GLOMERULAR FILTR. RATE CALC 104.0 mL/min (>90); GLUCOSE,RANDOM 96.0 mg/dL (70-105); PHOSPHORUS 3.7 mg/dL (2.5-4.9); SODIUM SERUM 144.0 mmol/L (136-145); TOTAL PROTEIN, SERUM 5.9 g/dL (6.0-8.3); UREA NITROGEN, BLOOD 4.0 mg/dL (7-18)
--- NOTE | 2025-08-28 06:05 | NUR ---
MEDS PT SLEPT AT INTERVALS DURING THE SHIFT. DUE MEDS ADMINISTERED PER PROTOCOL. KEPT RESTED AND COMFORTABLE. CALL LIGHT WITHIN REACH. FOR MORE CARE.
--- NOTE | 2025-08-28 10:01 | PN ---
NEPHROLOGY PROGRESS NOTE Date/Time Patient Seen: Aug 28, 2025 SUBJECTIVE: This is a 65-year-old female with underlying history of chronic anemia, history of iron deficiency, prior history of GI bleed, hemorrhoids, hypertension, type 2 diabetes mellitus maintained on outpatient treatment with SGLT2 inhibitor with Farxiga, history of gastric ulcer She presented to the ER for further evaluation of dizziness, generalized weaknes s, poor oral intake with nausea and vomiting. The patient is now brought in with diabetic ketoacidosis, euglycemic. The patient was on SGLT2 inhibitors. The patient has a history of nausea and vomiting, found to have elevated BUN and creatinine. The patient was recently given Bactrim. No other associated symptoms. No other aggravating or relieving factor. The patient is hypokalemic also. Says acute renal failure, acidosis and euglycemic ketoacidosis requiring insulin. She has been transferred to the medical floor. Renal function and electrolytes are stable. Hemoglobin was noted, she continues on IV iron She continues on antibiotics Case management coordinating SNF placement She was seen in the medical floor, in no acute distress Multiple family members at the bedside REVIEW OF SYSTEMS: GENERAL: Negative for any nausea, vomiting, fevers, chills, or weight loss. NEUROLOGIC: Negative for any blurry vision, blind spots, double vision, facial asymmetry, dysphagia, dysarthria, hemiparesis, hemisensory deficits, vertigo, ataxia. HEENT: Negative for any head trauma, neck trauma, neck stiffness, photophobia, phonophobia, sinusitis, rhinitis. CARDIAC: Negative for any chest pain, dyspnea on exertion, paroxysmal nocturnal dyspnea, peripheral edema. PULMONARY: Negative for any shortness of breath, wheezing, COPD, or TB exposure. GASTROINTESTINAL: Negative for any abdominal pain, nausea, vomiting, bright red blood per rectum, melena. GENITOURINARY: Negative for any dysuria, hematuria, incontinence. INTEGUMENTARY: Negative for any rashes, cuts, insect bites. RHEUMATOLOGIC: Negative for any joint pains, photosensitive rashes, history of vasculitis or kidney problems. HEMATOLOGIC: Negative for any abnormal bruising, frequent infections or bleeding. Vital Signs (last 8hr) Date Time Temp Pulse Resp B/P (MAP) Pulse Ox O2 Delivery O2 Flow Rate FiO2 08/28/25 08:00 98.8 88 20 145/72 91 Room Air 08/28/25 06:15 86 18 N/A Room Air 21 08/28/25 04:00 97.9 85 18 135/65 92 Room Air PHYSICAL EXAM: GENERAL: Alert and oriented x 3. No acute distress. Well-nourished. EYES: EOMI. Anicteric. HENT: Moist mucous membranes. No scleral icterus. No cervical lymphadenopathy. LUNGS: Clear to auscultation bilaterally. No accessory muscle use. CARDIOVASCULAR: Regular rate and rhythm. No murmur. No JVD. ABDOMEN: Soft, non-tender and non-distended. No palpable masses. EXTREMITIES: No edema. Non-tender. SKIN: No rashes or lesions. Warm. NEUROLOGIC: No focal neurological deficits. CN II-XII grossly intact, but not individually tested. PSYCHIATRIC: Cooperative. Appropriate mood and affect. Current Medications Medications (Trade) Dose Ordered Sig/Sylvester Route PRN Reason Start Time Stop Time Status Last Admin Dose Admin Albuterol (DUOneb) 1 udvial Q6H PRN IH SHORTNESS OF BREATH 08/24/25 14:00 09/23/25 13:59 Ceftriaxone Sodium (ROCEphine 1G INJ) 1 gm Q12H IVPB 08/24/25 13:30 09/03/25 13:29 08/26/25 02:23 1 GM Dextrose/Sodium Chloride 1,000 ml @ 0 mls/hr AD IV 08/24/25 14:00 08/24/25 20:50 DC Insulin Glargine (LANtus 100 UNITS/ML 10 ML VIAL) 10 units BID@0730,2100 SQ 08/25/25 07:30 09/24/25 07:29 08/25/25 22:02 10 UNITS Insulin Human Regular (humuLIN R 100 UNIT/ML 3ML) INSULIN SLIDING SCAL... ACHS SQ 08/25/25 07:30 08/25/25 21:53 DC Insulin Human Regular (humuLIN R 100 UNIT/ML 3ML) INSULIN SLIDING SCAL... ACHS SQ 08/26/25 07:30 09/25/25 07:29 Insulin Human Regular 100 unit/ Sodium Chloride 101 ml @ 0 mls/hr PROTOCOL IV 08/24/25 14:00 08/24/25 20:50 DC 08/24/25 17:32 0 MLS/HR Iron Sucrose 300 mg/Sodium Chloride 250 ml @ 83 mls/hr DAILY IV 08/25/25 09:00 08/27/25 10:00 08/26/25 10:13 83 MLS/HR Lactated Ringer's 1,000 ml @ 150 mls/hr Q6H40M IV 08/24/25 21:00 09/23/25 20:59 08/25/25 17:27 150 MLS/HR Magnesium Sulfate 50 ml @ 0 mls/hr PROTOCOL IV 08/24/25 14:00 09/23/25 13:59 08/25/25 06:18 25 MLS/HR Pantoprazole Sodium (PROTonix 40MG INJ) 40 mg Q12H IVP 08/24/25 13:30 09/23/25 13:29 08/26/25 02:23 40 MG Phenazopyridine HCl (PYRIdium HCL 200 MG TAB) 200 mg Q8H PRN PO OTHER [SEE ORDER COMMENTS] 08/24/25 22:00 08/24/25 22:05 DC Potassium Chloride 20 meq/ Sodium Chloride 1,010 ml @ 0 mls/hr PROTOCOL IV 08/24/25 14:00 08/24/25 20:50 DC Potassium Chloride/Dextrose/ Sod Cl 1,000 ml @ 0 mls/hr AD IV 08/24/25 14:00 08/24/25 20:50 DC 08/24/25 16:10 150 MLS/HR Potassium Chloride 100 ml @ 100 mls/hr AD PRN IV POTASSIUM PROTOCOL 08/24/25 14:00 09/23/25 13:59 Potassium Chloride 100 ml @ 0 mls/hr PROTOCOL PRN IV DKA POTASSIUM REPLACEMENT 08/24/25 14:00 08/24/25 20:50 DC Potassium Chloride (K-Dur/Klor-Con 20meq) 20 meq AD PRN PO POTASSIUM PROTOCOL 08/24/25 14:00 09/23/25 13:59 08/26/25 08:09 20 MEQ Potassium Chloride (KCl 10% Elixir 20meq/15ml) 20 meq AD PRN PO POTASSIUM PROTOCOL 08/24/25 14:00 09/23/25 13:59 08/25/25 06:18 20 MEQ Sodium Chloride 1,000 ml @ 75 mls/hr [id number] IV 08/24/25 13:30 08/24/25 13:34 DC Sodium Chloride 1,000 ml @ 75 mls/hr [id number] IV 08/24/25 13:30 08/24/25 14:11 DC 08/24/25 13:59 75 MLS/HR Sodium Chloride 1,000 ml @ 200 mls/hr PROTOCOL IV 08/24/25 14:00 08/24/25 20:50 DC Thiamine HCl (Vitamin B-1) 100 mg Q24H IVP 08/24/25 13:30 09/23/25 13:29 08/25/25 14:50 100 MG Vitamin B Complex/ Vit C/Folic Acid (Nephrovite Tablet) 1 cap DAILY PO 08/25/25 09:00 08/25/25 08:19 DC Vitamin B Complex/ Vit C/Folic Acid (Nephrovite Tablet) 1 cap DAILY PO 08/25/25 09:00 09/24/25 08:59 08/26/25 09:55 1 [facility] LABORATORY: [ ] Hematology Labs: Test 08/28/25 04:17 Range/Units White Blood Count 4.1 L 4.8-10.8 K/uL Red Blood Count 4.29 4.00-5.50 MIL/uL Hemoglobin 8.3 L 12.0-16.0 g/dL Hematocrit 30.0 L 36-48 % Mean Corpuscular Volume 69.9 L 79-99 fL Mean Corpuscular Hemoglobin 19.3 L 27.0-33.0 pg Mean Corpuscular Hemoglobin Concent 27.7 L 32.0-36.0 g/dL Red Cell Distribution Width 23.2 H 11.0-15.5 % Platelet Count 483 H 130-400 K/uL Mean Platelet Volume 8.4 7.5-10.5 fL Immature Granulocyte % (Auto) 0.5 0-1 % Neutrophils (%) (Auto) 47.9 40.0-77.0 % Lymphocytes (%) (Auto) 31.1 21.0-51.0 % Monocytes (%) (Auto) 10.4 3.0-13.0 % Eosinophils (%) (Auto) 8.9 H 0.0-8.0 % Basophils (%) (Auto) 1.2 0.0-5.0 % Neutrophils # (Auto) 1.9 1.8-7.7 K/uL Lymphocytes # (Auto) 1.3 1.0-4.8 K/uL Monocytes # (Auto) 0.4 0.1-1.0 K/uL Eosinophils # (Auto) 0.36 0.00-0.70 K/uL Basophils # (Auto) 0.05 0.00-0.20 K/uL Absolute Immature Granulocyte (auto 0.02 0-1 K/uL Nucleated Red Blood Cells 0.0 0.0-0.19 % Chemistry Labs: Test 08/28/25 05:17 08/28/25 04:17 Range/Units Whole Blood Glucose 102 70-110 MG/DL Sodium Level 144 136-145 mmol/L Potassium Level 3.5 3.5-5.1 mmol/L Chloride Level 109 101-111 mmol/L Carbon Dioxide Level 26 21-32 mmol/L Blood Urea Nitrogen 4 L 7-18 mg/dL Creatinine 0.5 0.5-1.0 mg/dL Glomerular Filtration Rate Calc 104 >90 mL/min Random Glucose 96 70-105 mg/dL Total Calcium 8.6 8.5-10.1 mg/dL Phosphorus Level 3.7 2.5-4.9 mg/dL Magnesium Level 2.10 1.80-2.40 mg/dL Total Bilirubin 0.2 0.2-1.0 mg/dL Aspartate Amino Transf (AST/SGOT) 19 10-37 U/L Alanine Aminotransferase (ALT/SGPT) 15 12-78 U/L Alkaline Phosphatase 74 50-136 U/L Total Protein 5.9 L 6.0-8.3 g/dL Albumin 2.8 L 3.5-5.0 g/dL DIAGNOSTICS / RADIOLOGY: [place] [address] IMAGING REPORT Signed PATIENT: RORY GARCIA MR#: [id number] : 1960 SEX: F AGE: 65 LOCATION: [facility] ORDER 27 STATUS: ADM IN [facility] REPORT#: [id number] SERVICE 24 REASON: nausea/ vomiting x 3 days, UTI, CARY ORDERING PHYSICIAN: EFRAIN STACY MD PROCEDURE: ABD PEL WO - CT ABDOMEN/PELVIS W/O CONTRAST EXAM: CT Abdomen and Pelvis Without IV Contrast. CLINICAL HISTORY: Nausea/vomiting ??? 3 days, UTI, CARY. TECHNIQUE: Axial computed tomography images of the abdomen and pelvis were obtained without intravenous contrast. Multiplanar reformats were reviewed. CONTRAST: No IV contrast administered. DOSE SCAN DETAILS: No. Protocol # of Scans kVp CTDIvol (mGy) DLP (mGy???cm) 1 DualScano 1 120 ? 2 DualScano 1 120 ? 3 Helical 1 120 7.00 (Body) 376.90 (Body) Radiation Dose (From Helical Acquisition): CTDIvol: 7.00 mGy DLP: 376.90 mGy???cm COMPARISON: None provided. FINDINGS: LUNG BASES: Clear. No pleural effusion. LIVER: Unremarkable. GALLBLADDER AND BILE DUCTS: Surgically absent gallbladder. No intrahepatic or extrahepatic biliary dilatation. PANCREAS: Unremarkable. SPLEEN: Normal size and attenuation. ADRENAL GLANDS: Unremarkable. KIDNEYS, URETERS, AND BLADDER: Left renal calculus (0.5 cm) in the upper pole. No hydronephrosis or hydroureter. Urinary bladder unremarkable. STOMACH AND BOWEL: Uncomplicated colonic diverticulosis. No bowel wall thickening, obstruction, or inflammatory changes. Sliding hiatus hernia measuring 2.7 ??? 1.2 cm. APPENDIX: Not dilated; no periappendiceal inflammation. PERITONEUM: No free fluid or free air. ABDOMINAL WALL: Fascial defect at umbilical region measuring 1.5 cm containing fat???suggestive of a small fat-containing umbilical hernia. LYMPH NODES: No abnormally enlarged lymph nodes. REPRODUCTIVE ORGANS: Surgically absent uterus. Adnexal regions unremarkable. VASCULATURE: Aortoiliac vessels normal in calibre. No aneurysm. BONES: Degenerative thoracolumbar spondylosis. Grade I anterolisthesis of L3 over L4 secondary to facet arthropathy and pars defects. Loss of disc height at T10???T11 with endplate irregularities. No acute fracture. IMPRESSION: 1. Left renal calculus (0.5 cm) in the upper pole, without hydronephrosis or hydroureter. 2. Grade I anterolisthesis of L3 over L4 secondary to facet arthropathy and pars defects. 3. Degenerative thoracolumbar spondylosis, including loss of disc height at T10-T11 with endplate irregularities. No acute fracture. 4. Small fat-containing umbilical hernia, with fascial defect measuring 1.5 cm. 5. Sliding hiatus hernia (2.7 ??? 1.2 cm). 6. Uncomplicated colonic diverticulosis. 7. Surgically absent gallbladder and uterus. No intrahepatic or extrahepatic biliary dilatation. /[place] DICTATED BY: ESTEFANY BROWN MD DATE: 08/24/251621 ELECTRONICALLY SIGNED BY: ESTEFANY BROWN MD DATE: 08/24/251621 PATIENT: RORY GARCIA MR#: [id number] : 1960 SEX: F AGE: 65 LOCATION: [facility] ORDER 105 STATUS: REG ER REPORT#: [id number] SERVICE 105 REASON: cp ORDERING PHYSICIAN: KAREN SANCHEZ MD PROCEDURE: CXR1VW - CHEST 1VW EXAM: CR Chest, 1 View. CLINICAL HISTORY: cp COMPARISON: None provided. FINDINGS: LUNGS: There is no mass, infiltrate, or acute pulmonary abnormality. PLEURAL SPACES: No evidence of pleural effusion or pneumothorax. MEDIASTINUM: The cardiomediastinal silhouette is within normal limits. BONES: No aggressive appearing osseous lesion seen. IMPRESSION: No acute cardiopulmonary pathology is evident. /[place] DICTATED BY: OLIMPIA HORN Jr., MD DATE: 08/24/251355 ELECTRONICALLY SIGNED BY: OLIMPIA HORN Jr., MD DATE: 08/24/25 135 PATIENT: RORY GARCIA MR#: [id number] : 1960 SEX: F AGE: 65 [facility]ATION[facility] 1328 STATUS: ADM IN REPORT#: [id number] SERVICE REASON: weakness x 1 day ORDERING PHYSICIAN: EFRAIN STACY MD PROCEDURE: HEAD WO - CT HEAD/BRAIN W/O CONTRAST CT OF THE BRAIN WITHOUT CONTRAST CLINICAL INDICATION: Weakness for 1 day TECHNIQUE: Multiple contiguous axial CT images were obtained through the brain without the administration of intravenous contrast. Coronal and sagittal reconstructions were also obtained. COMPARISON: None available FINDINGS: The ventricular system and cortical sulci demonstrate a normal size and configuration for the patients age. There is patchy hypoattenuation of the periventricular matter bilaterally consistent with microangiopathic ischemic disease. There are no extra-axial collections, mass effect, or midline shift. The basal cisterns are patent. The pimentel-white matter differentiation is preserved. The midline structures and cervicomedullary junction are unremarkable. There is no evidence of acute intracranial hemorrhage or areas of acute territorial infarction. Vascular calcification is present. The calvarium is unremarkable in appearance. No suspicious lytic or sclerotic osseous lesions are seen. The visualized portions of the sinuses are well aerated. The mastoid air cells are well pneumatized and well aerated. The visualized orbital structures are unremarkable. IMPRESSION: 1. No CT evidence of an acute intracranial process. 2. 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 /[place] DICTATED BY: MARCELLE OVIEDO MD DATE: 08/24/251525 ELECTRONICALLY SIGNED BY: MARCELLE OVIEDO MD DATE: 08/24/251525 ASSESSMENT: Suspected euglycemic DKA likely provoked by Farxiga use as outpatient, POA Acute kidney injury, POA Metabolic acidosis with compensated respiratory alkalosis, POA Acute on chronic iron deficiency anemia, POA Urinary Tract infection, POA Moderate hypokalemia, POA Rule out chronic GI bleeding, POA Prior history of gastric ulcer, POA History of hemorrhoids, POA Type 2 diabetes mellitus, POA Hypertension, POA Hyperlipidemia, POA Thrombocytosis, POA PLAN: Labs, diagnostic, radiologic exams reviewed and interpreted by myself and supervising physician. We have reviewed external records in detail Case management coordinating SNF placement Require close monitoring of renal function and electrolytes Order CBC, CMP, and electrolytes in am BiPAP as necessary, for respiratory distress Monitor blood pressure adjust medication doses as needed Avoid hypotensive episodes May use Dilaudid 0.5 mg IV every 6 hours as needed for severe pain Monitor blood sugars Strict intake, output, and daily weight should be monitored Please renally adjust medications Avoid nephrotoxic and nonsteroidal drugs Avoid contrast if possible Will continue to monitor renal function, anemia, electrolytes Treatment plan discussed with patient Questions were answered We have discussed with the other team physicians in detail about the care plan We will continue to monitor the patient closely ATTESTATION BY PHYSICIAN I have seen and examined the patient. I reviewed the documentation, medical decision making, and treatment plan as noted by the mid-level provider above. I agree with the findings and plan of care. SCOTTY COLEMAN MD, [facility] Aug 28, 2025 10:01
--- NOTE | 2025-08-28 14:46 | PN ---
[facility] PROGRESS NOTE Date of Service: Aug 28, 2025 Time of Service: 14:42 This is a 65-year-old female with underlying history of chronic anemia, history of iron deficiency, prior history of GI bleed, hemorrhoids, hypertension, type 2 diabetes mellitus maintained on outpatient treatment with SGLT2 inhibitor with Farxiga, history of gastric ulcer who presented to the ER for further evaluation of dizziness, generalized weakness, poor oral intake with nausea and vomiting. Symptoms have been ongoing since yesterday. Son reports that patient was recently diagnosed with urinary tract infection and was started on outpatient treated with oral Bactrim. She has been holding Farxiga for last 2-3 days due to UTI. She has been having poor oral intake, some suprapubic discomfort. Today, she was having shortness of breath with exertion and tachypnea, she was feeling dizzy and felt lightheaded. Symptoms have been nonresolving prompting her to come to the ER for further evaluation. Patient previously has been hospitalized in [facility] in 06/2024 when she had hematochezia. She reports having previous history of blood transfusion as well. She had a upper endoscopy in in 06/2024 which showed nonbleeding gastric ulcer. Patient also has a history of hemorrhoids. She denies having hematemesis, hematochezia or melena. Son has noticed that patient was having some blood in the urine with her recent UTI. She is currently not taking iron supplementation. Patient denies any previous history of chronic kidney disease. She has been a diabetic for about one year and has been on Farxiga chronically. On presentation, patient was noted to be afebrile with T-max of 98.1 F, heart rate of 94, blood pressure 109/54. Labs on presentation showed WBC count of 5900, hemoglobin 7.4, MCV of 66.4, platelet count of [id number]. BMP showed sodium of 138, potassium 2.9, bicarb is 19, BUN of 17 , creatinine 2.6, blood ketone of 1.5, blood glucose of 179. X-ray showed no acute infiltrates. ABG showed pH of 7.38, pCO2 of 27, bicarb of 15, lactic acid of one. SUBJECTIVE: 08/25/25: Patient was evaluated in room 216. Patient speaks [place], so nurse was present as a valet manager. Patient reports feeling better. today her anion gap has dropped down to 8mEq/L today from 18mEq/L during admission. Blood glucose level today was 99, so the insulin drip was stopped and patient was downgraded from ICU to Med/surg floors. Labs today Hb-7.6, Albumin 3.0 and ABG from 08/24/25 was pH-7.38, Pco2-27, PO2-94.2, Hco3-15.6. 08/26/25: Patient was evaluated in room 216. Patient speaks [place], so nurse was present as a valet manager. Patient reports feeling fatigued and has generalized weakness. her HB today was 8.0. GI was consulted to evaluate for her anemia. She has H/O nonbleeding gastric ulcers, hemorrhoids. She is currently on IV Venofer. Blood glucose levels today was 99. she is currently on 10 units ins ulin lantus, and as per endocrinology recommendations, she was advised to change from high dose to low dose insulin sliding scale. 08/27/25: Patient was evaluated in room 216. Patient speaks [place], so nurse was present as a valet manager. Patient report feeling better today and doesn't have any active complaints. Patient underwent EGD today which revealed normal results and no active site of bleeding. Patient denies any dizziness, fatigue, nausea, vomiting. Her anion gap today was 7 and blood glucose levels around 16:43 was 92. Patient was declined by lana so we are waiting for the snf approval. 08/28 atient was evaluated in room 216. Patient speaks [place], so nurse was present as a valet manager. Patient report feeling better today and doesn't have any active complaints. The patient is awaiting approval at points to. Endocrinology recommended to continue Lantus 10 units daily and adjust for fasting glucose. As per Endocrinology they would recommend to discontinue Farxiga due to the patient's recurrent UTI but patient refused as the patient wants to discuss with her PCP REVIEW OF SYSTEMS CONSTITUTIONAL: poor oral intake, malaise, fatigue NEUROLOGICAL: Denies headache, amaurosis fugax, motor weakness, sensory deficit, vertigo/spinning sensation, gait abnormalities, or tremors. ENT: No hearing loss, otalgia, otorrhea, rhinitis, rhinorrhea, hoarseness, or sore throat. CARDIOVASCULAR: Denies any exertional angina, dyspnea on exertion, orthopnea, paroxysmal nocturnal dyspnea, palpitations, life-threatening arrhythmias, claudication. PULMONARY: Denies any shortness of breath, cough, phlegm/sputum, hemoptysis, pleuritic chest pain. SLEEP: Denies morning headaches, daytime somnolence or napping. Denies difficulty falling asleep, staying asleep, waking from sleep. Denies knowledge of snoring. GASTROINTESTINAL: nausea and vomiting, some suprapubic discomfort GENITOURINARY: Denies frequency, urgency, nocturia, hematuria or incontinence (Storage/Irritative symptoms.) Low urinary stream, straining to void, urinary intermittency or hesitancy, splitting of the voiding stream, terminal dribbling. ENDOCRINOLOGIC: Denies polyuria, polydipsia, polyphagia or heat/cold intolerances. HEMATOLOGIC: Denies thrombophilia/previous clots, or coagulopathy/bleeding disorders. ONCOLOGIC: Denies personal history of malignancy. DERMATOLOGIC: Denies rashes or pruritus. PSYCHIATRIC: Denies any suicidal or homicidal ideation. Denies hallucinations. PHYSICAL EXAM: GENERAL APPEARANCE: The patient is awake, alert, and oriented, in no acute cardiopulmonary distress. NEUROLOGICAL: Cranial nerves II-XII grossly intact. Motor is 5/5 in bilateral upper and lower extremities proximal to distal. No sensory deficits. HEENT: Face is symmetric. Pupils are equal and reactive. Extraocular movements are intact. NECK: Supple. No JVD. No thyromegaly. No submental, submandibular, pre-/posta uricular, occipital or supraclavicular lymphadenopathy. CHEST: Normal chest expansion. No Telemetry. LUNGS: Absence of any rales, rhonchi or any wheezing. CARDIOVASCULAR: Regular. S1 and S2 normal. No appreciable rubs, murmurs or gallops. ABDOMEN: Soft, nontender, and nondistended. There is no rebound, voluntary guarding, or rigidity. mild suprapubic discomfort : Deferred. No Pandey. EXTREMITIES: Non-edematous and not cyanotic. No clubbing. Good capillary refill. SKIN: No skin breakdown. Vital Signs (last 8hr) Date Time Temp Pulse Resp B/P (MAP) Pulse Ox O2 Delivery O2 Flow Rate FiO2 08/28/25 08:00 98.8 88 20 145/72 91 Room Air LABS: Laboratory: Test 08/28/25 11:48 08/28/25 04:17 08/27/25 12:00 Range/Units Whole Blood Glucose 81 70-110 MG/DL White Blood Count 4.1 L 4.8-10.8 K/uL Red Blood Count 4.29 4.00-5.50 MIL/uL Hemoglobin 8.3 L 12.0-16.0 g/dL Hematocrit 30.0 L 36-48 % Mean Corpuscular Volume 69.9 L 79-99 fL Mean Corpuscular Hemoglobin 19.3 L 27.0-33.0 pg Mean Corpuscular Hemoglobin Concent 27.7 L 32.0-36.0 g/dL Red Cell Distribution Width 23.2 H 11.0-15.5 % Platelet Count 483 H 130-400 K/uL Mean Platelet Volume 8.4 7.5-10.5 fL Immature Granulocyte % (Auto) 0.5 0-1 % Neutrophils (%) (Auto) 47.9 40.0-77.0 % Lymphocytes (%) (Auto) 31.1 21.0-51.0 % Monocytes (%) (Auto) 10.4 3.0-13.0 % Eosinophils (%) (Auto) 8.9 H 0.0-8.0 % Basophils (%) (Auto) 1.2 0.0-5.0 % Neutrophils # (Auto) 1.9 1.8-7.7 K/uL Lymphocytes # (Auto) 1.3 1.0-4.8 K/uL Monocytes # (Auto) 0.4 0.1-1.0 K/uL Eosinophils # (Auto) 0.36 0.00-0.70 K/uL Basophils # (Auto) 0.05 0.00-0.20 K/uL Absolute Immature Granulocyte (auto 0.02 0-1 K/uL Nucleated Red Blood Cells 0.0 0.0-0.19 % Sodium Level 144 136-145 mmol/L Potassium Level 3.5 3.5-5.1 mmol/L Chloride Level 109 101-111 mmol/L Carbon Dioxide Level 26 21-32 mmol/L Blood Urea Nitrogen 4 L 7-18 mg/dL Creatinine 0.5 0.5-1.0 mg/dL Glomerular Filtration Rate Calc 104 >90 mL/min Random Glucose 96 70-105 mg/dL Total Calcium 8.6 8.5-10.1 mg/dL Phosphorus Level 3.7 2.5-4.9 mg/dL Magnesium Level 2.10 1.80-2.40 mg/dL Total Bilirubin 0.2 0.2-1.0 mg/dL Aspartate Amino Transf (AST/SGOT) 19 10-37 U/L Alanine Aminotransferase (ALT/SGPT) 15 12-78 U/L Alkaline Phosphatase 74 50-136 U/L Total Protein 5.9 L 6.0-8.3 g/dL Albumin 2.8 L 3.5-5.0 g/dL Stool Occult Blood NEGATIVE NEGATIVE Current Medications Medications (Trade) Dose Ordered Sig/Sylvester Route PRN Reason Start Time Stop Time Status Last Admin Dose Admin Albuterol (DUOneb) 1 udvial Q6H PRN IH SHORTNESS OF BREATH 08/24/25 14:00 09/23/25 13:59 Atorvastatin Calcium (LIPItor 20MG) 20 mg HS PO 08/26/25 21:00 09/25/25 20:59 08/27/25 19:55 20 MG Ceftriaxone Sodium (ROCEphine 1G INJ) 1 gm Q12H IVPB 08/24/25 13:30 09/03/25 13:29 08/28/25 13:09 1 GM Citalopram Hydrobromide (CeleXA 20MG TAB) 20 mg DAILY PO 08/27/25 09:00 09/26/25 08:59 08/28/25 08:48 20 MG Dextrose/Sodium Chloride 1,000 ml @ 0 mls/hr AD IV 08/24/25 14:00 08/24/25 20:50 DC Gabapentin (NEURontin 100 mg CAP) 100 mg HS PO 08/26/25 21:00 09/25/25 20:59 08/27/25 19:55 100 MG Home Med (Home Medication) (Cholecalciferol (Vitamin D3) (D3-5000) ... DAILY PO 08/27/25 09:00 09/26/25 08:59 Home Med (Home Medication) Olmesartan 5MG 1 TAB HS PO 08/27/25 21:00 09/26/25 20:59 Hydralazine HCl (APRESOLine 20MG INJ) 10 mg Q6H PRN IV ADMINISTER FOR SBP > 160 08/27/25 01:30 09/26/25 01:29 08/27/25 01:17 10 MG Insulin Glargine (LANtus 100 UNITS/ML 10 ML VIAL) 10 units BID@0730,2100 SQ 08/25/25 07:30 09/24/25 07:29 08/28/25 06:01 10 UNITS Insulin Human Regular (humuLIN R 100 UNIT/ML 3ML) INSULIN SLIDING SCAL... ACHS SQ 08/25/25 07:30 08/25/25 21:53 DC Insulin Human Regular (humuLIN R 100 UNIT/ML 3ML) INSULIN SLIDING SCAL... ACHS SQ 08/26/25 07:30 09/25/25 07:29 Insulin Human Regular 100 unit/ Sodium Chloride 101 ml @ 0 mls/hr PROTOCOL IV 08/24/25 14:00 08/24/25 20:50 DC 08/24/25 17:32 0 MLS/HR Iron Sucrose 300 mg/Sodium Chloride 250 ml @ 83 mls/hr DAILY IV 08/25/25 09:00 08/27/25 10:00 DC 08/27/25 13:57 83 MLS/HR Lactated Ringer's 1,000 ml @ 150 mls/hr Q6H40M IV 08/24/25 21:00 08/27/25 19:52 DC 08/27/25 16:06 150 MLS/HR Magnesium Sulfate 50 ml @ 0 mls/hr PROTOCOL IV 08/24/25 14:00 09/23/25 13:59 08/27/25 13:57 50 MLS/HR Magnesium Sulfate 50 ml @ 0 mls/hr PROTOCOL PRN IV LOW MG 08/27/25 13:30 08/27/25 13:03 DC Pantoprazole Sodium (PROTonix 40MG INJ) 40 mg Q12H IVP 08/24/25 13:30 09/23/25 13:29 08/28/25 13:08 40 MG Phenazopyridine HCl (PYRIdium HCL 200 MG TAB) 200 mg Q8H PRN PO OTHER [SEE ORDER COMMENTS] 08/24/25 22:00 08/24/25 22:05 DC Potassium Chloride 20 meq/ Sodium Chloride 1,010 ml @ 0 mls/hr PROTOCOL IV 08/24/25 14:00 08/24/25 20:50 DC Potassium Chloride/Dextrose/ Sod Cl 1,000 ml @ 0 mls/hr AD IV 08/24/25 14:00 08/24/25 20:50 DC 08/24/25 16:10 150 MLS/HR Potassium Chloride 100 ml @ 100 mls/hr AD PRN IV POTASSIUM PROTOCOL 08/24/25 14:00 09/23/25 13:59 08/27/25 08:00 100 MLS/HR Potassium Chloride 100 ml @ 0 mls/hr PROTOCOL PRN IV DKA POTASSIUM REPLACEMENT 08/24/25 14:00 08/24/25 20:50 DC Potassium Chloride (K-Dur/Klor-Con 20meq) 20 meq AD PRN PO POTASSIUM PROTOCOL 08/24/25 14:00 09/23/25 13:59 08/28/25 13:09 20 MEQ Potassium Chloride (KCl 10% Elixir 20meq/15ml) 20 meq AD PRN PO POTASSIUM PROTOCOL 08/24/25 14:00 09/23/25 13:59 08/25/25 06:18 20 MEQ Sodium Chloride 1,000 ml @ 75 mls/hr [id number] IV 08/24/25 13:30 08/24/25 13:34 DC Sodium Chloride 1,000 ml @ 75 mls/hr [id number] IV 08/24/25 13:30 08/24/25 14:11 DC 08/24/25 13:59 75 MLS/HR Sodium Chloride 1,000 ml @ 200 mls/hr PROTOCOL IV 08/24/25 14:00 08/24/25 20:50 DC Thiamine HCl (Vitamin B-1) 100 mg Q24H IVP 08/24/25 13:30 09/23/25 13:29 08/28/25 13:09 100 MG Vitamin B Complex/ Vit C/Folic Acid (Nephrovite Tablet) 1 cap DAILY PO 08/25/25 09:00 08/25/25 08:19 DC Vitamin B Complex/ Vit C/Folic Acid (Nephrovite Tablet) 1 cap DAILY PO 08/25/25 09:00 09/24/25 08:59 08/28/25 08:48 1 CAP DIAGNOSTICS / RADIOLOGY: [ ] ASSESSMENT: Suspected euglycemic DKA likely provoked by Farxiga use as outpatient, POA Acute kidney injury, POA Metabolic acidosis with compensated respiratory alkalosis, POA Acute on chronic iron deficiency anemia, POA Urinary Tract infection, POA Moderate hypokalemia, POA Rule out chronic GI bleeding, POA Prior history of gastric ulcer, POA History of hemorrhoids, POA Type 2 diabetes mellitus, POA Hypertension, POA Hyperlipidemia, POA Thrombocytosis, POA PLAN: Suspected euglycemic DKA likely provoked by Farxiga use as outpatient, POA * On presentation sodium of 138, potassium 2.9, bicarb is 19, BUN of 17 , creatinine 2.6, blood ketone of 1.5, blood glucose of 179. [id number] * Potassium was replaced as per protocol recent trends are- 2.9>3.8>3 .4>3.6>3.4>3.4 * ABG showed pH of 7.38, pCO2 of 27, bicarb of 15, lactic acid of one. Urine Ketones-5 * Farxiga was discontinued. * Endocrinology was consulted and is currently on the case. * Received oral potassium supplementation and once potassium crossed greater than 3.3, low dose insulin drip was started. * Patient was on insulin drip until 8pm of 08/24/25, and was given 10 units of lantus. Later she was started on Ringer Lactate with Q4 glucose monitoring. * Today Lantus 10 units was held in the morning due to scheduled EGD as the patient was NPO. But will continue on lantus 10 units, with regular glucose monitoring, and as per endocrinology recommendations, she was advised to change from high dose to low dose insulin sliding scale. Metabolic acidosis with compensated respiratory alkalosis, POA * ABG showed pH of 7.38, pCO2 of 27, bicarb of 15, lactic acid of one with compensated respiratory alkalosis * Anion gap has dropped down to 8mEq/L today from 18mEq/L during admission. Patient was downgraded from ICU to Med/surg floors. * Today the anion gap was 9(08/28/25) with blood glucose level of 102 * Will continue to monitor with daily labs. Acute kidney injury, POA * BMP on 08/24/25 showed sodium of 138, potassium 2.9, bicarb is 19, BUN of 17 , creatinine 2.6, GFR-31. * Patient was started on IV hydration. Losartan was held from 08/24/25. Bactrim was held due to likely contributing towards the CARY. * BUN trends 15>11>5>4>4, Cr-2.6>1.6>1.0>0.6>0.5>0.5. GFR-31>36>63>100>104 * Nephrology was consulted and is currently on the case, will follow their recommendations. * Will continue to monitor with daily labs. Urinary Tract infection, POA * Urinalysis showed cloudy appearance, Urine protein - 50, Urine occult blood- Moderate, Urine leukocyte esterase-75, Urine WBC-11-25. * Bactrim was held. Started the patient on Rocephin twice daily (day4). * WBC trends 5.9>5.6>4.3>4.6>4.1 * Urine culture was ordered, results show no growth. * Will continue to monitor with daily labs. Acute on chronic iron deficiency anemia, POA: * Recent Hb trends-7.4>6.9>8.4>7.6>8.0>8.3>8.3. One unit of leukocyte reduced RBC was transfused on 08/24/25. * Iron panel was ordered, Iron - 13, TIBC-456, %saturation-2.8, Ferritin-8 * Last dose IV iron sucrose infusion was given today(08/27/25). * GI was consulted for H/O nonbleeding gastric ulcer, hemorrhoids. EGD was done which showed no active site of bleeding and the reports were unremarkable. * H&H will be monitored closely. Thrombocytosis, POA * Platelets trends 760>568>521>536>483 * Thrombocytosis likely reactive from underlying iron deficiency anemia. * Will continue to monitor with daily labs. ATTESTATION BY PHYSICIAN I have seen and examined the patient. I reviewed the documentation, medical decision making, and treatment plan as noted by the resident physician above. I agree with the findings and plan of care. KENJI SHI MD,MARCO ANTONIO Fritz MD Aug 28, 2025 14:46
--- NOTE | 2025-08-28 16:21 | DS ---
Discharge Summary Hospital Course Summary: This is a 65-year-old female with underlying history of chronic anemia, history of iron deficiency, prior history of GI bleed, hemorrhoids, hypertension, type 2 diabetes mellitus maintained on outpatient treatment with SGLT2 inhibitor with Farxiga, history of gastric ulcer who presented to the ER for further evaluation of dizziness, generalized weakness, poor oral intake with nausea and vomiting. Symptoms have been ongoing since one day. The patient's son reported that patient was recently diagnosed with urinary tract infection and was started on outpatient treated with oral Bactrim. She has been holding Farxiga for last 2-3 days due to UTI. She has been having poor oral intake, some suprapubic discomfort. She was having shortness of breath with exertion and tachypnea, she was feeling dizzy and felt lightheaded and as the symptoms have been nonresolving prompting her to come to the ER for further evaluation. Patient previously has been hospitalized in [facility] in 06/2024 when she had hematochezia. She reports having previous history of blood transfusion as well. She had a upper endoscopy in in 06/2024 which showed nonbleeding gastric ulcer. Patient also has a history of hemorrhoids. She denies having hematemesis, hematochezia or melena. Son has noticed that patient was having some blood in the urine with her recent UTI. She is currently not taking iron supplementation. She has been a diabetic for about one year and has been on Farxiga chronically. On presentation, patient was noted to be afebrile with T-max of 98.1 F, heart rate of 94, blood pressure 109/54. Labs on presentation showed WBC count of 5900, hemoglobin 7.4, MCV of 66.4, platelet count of [id number]. BMP showed sodium of 138, potassium 2.9, bicarb is 19, BUN of 17 , creatinine 2.6, blood ketone of 1.5, blood glucose of 179. X-ray showed no acute infiltrates. ABG showed pH of 7.38, pCO2 of 27, bicarb of 15, lactic acid of one. As the patient spoke only Luxembourgish, a nurse was present as a pocket builder The patient was started on the diabetic ketoacidosis protocol and his anion gap dropped from 18 to 8 mEq/liter. Today the patient and gave was 9 with blood glucose of 102. Due to hypokalemia the patient's potassium was replaced according to protocol. Endocrinology was consulted and patient was started on insulin drip and then was given Lantus 10 units. Later as per endocrinology recommendation the patient was advised to change from high dose to low dose insulin sliding scale. Patient also had acute kidney injury for which patient was started on IV hydration and losartan was held. During the hospital course the patient's BUN, creatinine, and GFR improved to 4, 0.5, and 104 respectively. The patient also came with urinary tract infection with urinalysis showing cloudy appearance, urine protein 50, urine occult blood was moderate, urine leukocyte esterase 75 and urine WBC 11-25. Patient's Bactrim was held and she was started on Rocephin. Urine culture was ordered that showed no growth. The patient also had acute on chronic iron deficiency was transfused 1 unit of PRBC on 08/24/2025. Iron panel was ordered showed iron 13, TIBC 456, transferrin saturation percentage of 2.8 and ferritin of 8, therefore she was transfused IV iron sucrose. GI consulted for history of nonbleeding gastric ulcers, hemorrhoids and they recommended EGD which was done that showed no active site of bleeding and reports were unremarkable. Patient was been planned to sent to a SNF but was declined from [facility] therefore the patient was accepted at [place] [facility]. Therefore the patient was transferred to SNF. As per endocrinology, recommended to continue Lantus 10 units daily and to adjust for fasting glucose. There also recommended to discontinue Farxiga due to patient's recurrent UTI with the patient refused and the patient wants to discuss with her PCP first. [employer](s): Critical care HPI: 65-year-old female with past medical history of chronic anemia, prior GI bleed, hemorrhoids, hypertension, DM type 2 (Farxiga) , peptic ulcer disease who presented to the ER f with complaint of chest pain and generalized body we akness and found to have acute blood loss anemia, CARY, mild anion gap metabolic acidosis, possible mild DKA, and acute complicated cystitis. Per report she presented shortness of breath with exertion and tachypnea, with associated feeling dizzy and felt lightheaded. Her initial CBC showed WBC count of 5900, hemoglobin 7.4 (down to 6.9) MCV of 66.4, platelet count of 760. Her initial BMP showed sodium of 138, potassium 2.9, bicarb is 19, BUN of 17 , creatinine 2.6, blood ketone of 1.5, blood glucose of 179. Her computed anion gap was 18. Her ABG showed pH of 7.38, pCO2 of 27, bicarb of 15; UA consistent with cystitis. Patient was subsequently started on blood transfusion, DKA protocol, and IV antibiotics. ICU was consulted for critical care evaluation and DKA management. At present patient is currently hemodynamically stable, on room air with appropriate oxygen saturation, normal sinus rhythm on the monitor, not in acute respiratory distress, denies any specific complaint at this time. PLAN NEURO: Minimize central acting medications as possible. Fall Precautions. Well lighted room through the day and minimize interruptions through the night to prevent acute delirium. PULMONARY: Supplemental 02 as needed Titrate Fio2 to keep Spo2 > or = 90% DuoNebs and CPT as needed IS hourly while awake for pulmonary hygiene CARDIOVASCULAR: Follow hemodynamics. Titrate vasopressor to keep MAP >65 or systolic blood pressure >95mmHg DIPS: Insulin LINES: [PIV GI & NUTRITION: Continue nutritional support Aspirations precautions Prokinetic agents and laxatives as needed KIDNEYS & ELECTROLYTES: Strict monitoring of intake and output Daily weights Avoid nephrotoxic agents Monitor electrolytes and replace as needed Goal urine output of 30mL/hr or 0.5mL/kg/hr ENDOCRINE: Maintain blood glucose between 100-180 at all times. Insulin sliding scale for blood glucose management INFECTIOUS DISEASE: Trend temperature. Mota-culture if febrile. Micro: [ ] Antibiotics: Ceftriaxone HEMATOLOGY & COAGULATION: Monitor H&H. Keep Hgb > 7 Transfuse 1 unit of PRBC for Hgb < 7 Transfuse 1 pack of platelets of platelets < 20, 000 Watch for any signs and symptoms of bleeding SKIN: Pressure ulcer prevention per facility protocol Rehab: PT/OT Prophylaxis: GI: PPI DVT: Bilateral SCDs Code Status: Full Resuscitation Disposition: Can be downgraded to PCCU once insulin is off and transition to subcutaneous Lantus Other: Total patient care time exceeds 35 minutes excluding all procedures. Supervising physician: Dr Hermelinda Garsia Endocrinology PLAN: continue Lantus 10 units daily and adjust for fasting glucose. decrease high dose ssi to low dose sliding scale insulin. Monitor glucose q x 6 hourly. Continue carb consistent diet. Keep glucose less than 180 mg/dl. Patient was recommended to stop farxiga due to recurrent UTI but refused. she wa nts to follow up with pcp for diabetic meds change. Procedure(s): IMAGING REPORT Signed PATIENT: RORY GARCIA MR#: [id number] : 1960 SEX: F AGE: 65 LOCATION: [facility] ORDER 1328 STATUS: ADM IN REPORT#: [id number] SERVICE REASON: weakness x 1 day ORDERING PHYSICIAN: EFRAIN STACY MD PROCEDURE: HEAD WO - CT HEAD/BRAIN W/O CONTRAST CT OF THE BRAIN WITHOUT CONTRAST CLINICAL INDICATION: Weakness for 1 day TECHNIQUE: Multiple contiguous axial CT images were obtained through the brain without the administration of intravenous contrast. Coronal and sagittal reconstructions were also obtained. COMPARISON: None available FINDINGS: The ventricular system and cortical sulci demonstrate a normal size and configuration for the patients age. There is patchy hypoattenuation of the periventricular matter bilaterally consistent with microangiopathic ischemic disease. There are no extra-axial collections, mass effect, or midline shift. The basal cisterns are patent. The pimentel-white matter differentiation is preserved. The midline structures and cervicomedullary junction are unremarkable. There is no evidence of acute intracranial hemorrhage or areas of acute territorial infarction. Vascular calcification is present. The calvarium is unremarkable in appearance. No suspicious lytic or sclerotic osseous lesions are seen. The visualized portions of the sinuses are well aerated. The mastoid air cells are well pneumatized and well aerated. The visualized orbital structures are unremarkable. IMPRESSION: 1. No CT evidence of an acute intracranial process. 2. 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 /[place] DICTATED BY: MARCELLE OVIEDO MD DATE: 08/24/251525 ELECTRONICALLY SIGNED BY: MARCELLE OVIEDO MD DATE: 08/24/251525 PATIENT: RORY GARCIA MR#: [id number] : 1960 SEX: F AGE: 65 LOCATION: [facility] ORDER 1051 STATUS: REG ER REPORT#: [id number] SERVICE 1050 REASON: cp ORDERING PHYSICIAN: KAREN SANCHEZ MD PROCEDURE: CXR1VW - CHEST 1VW EXAM: CR Chest, 1 View. CLINICAL HISTORY: cp COMPARISON: None provided. FINDINGS: LUNGS: There is no mass, infiltrate, or acute pulmonary abnormality. PLEURAL SPACES: No evidence of pleural effusion or pneumothorax. MEDIASTINUM: The cardiomediastinal silhouette is within normal limits. BONES: No aggressive appearing osseous lesion seen. IMPRESSION: No acute cardiopulmonary pathology is evident. /[place] DICTATED BY: OLIMPIA HORN Jr., MD DATE: 08/24/251355 ELECTRONICALLY SIGNED BY: OLIMPIA HORN Jr., MD DATE: 08/24/251355 PATIENT: ROYR GARCIA MR#: [id number] : 1960 SEX: F AGE: 65 LOCATION: [facility] ORDER 1328 STATUS: ADM IN [facility] REPORT#: [id number] SERVICE 132 REASON: nausea/ vomiting x 3 days, UTI, CARY ORDERING PHYSICIAN: EFRAIN STACY MD PROCEDURE: ABD PEL WO - CT ABDOMEN/PELVIS W/O CONTRAST EXAM: CT Abdomen and Pelvis Without IV Contrast. CLINICAL HISTORY: Nausea/vomiting ??? 3 days, UTI, CARY. TECHNIQUE: Axial computed tomography images of the abdomen and pelvis were obtained without intravenous contrast. Multiplanar reformats were reviewed. CONTRAST: No IV contrast administered. DOSE SCAN DETAILS: No. Protocol # of Scans kVp CTDIvol (mGy) DLP (mGy???cm) 1 DualScano 1 120 ? 2 DualScano 1 120 ? 3 Helical 1 120 7.00 (Body) 376.90 (Body) Radiation Dose (From Helical Acquisition): CTDIvol: 7.00 mGy DLP: 376.90 mGy???cm COMPARISON: None provided. FINDINGS: LUNG BASES: Clear. No pleural effusion. LIVER: Unremarkable. GALLBLADDER AND BILE DUCTS: Surgically absent gallbladder. No intrahepatic or extrahepatic biliary dilatation. PANCREAS: Unremarkable. SPLEEN: Normal size and attenuation. ADRENAL GLANDS: Unremarkable. KIDNEYS, URETERS, AND BLADDER: Left renal calculus (0.5 cm) in the upper pole. No hydronephrosis or hydroureter. Urinary bladder unremarkable. STOMACH AND BOWEL: Uncomplicated colonic diverticulosis. No bowel wall thickening, obstruction, or inflammatory changes. Sliding hiatus hernia measuring 2.7 ??? 1.2 cm. APPENDIX: Not dilated; no periappendiceal inflammation. PERITONEUM: No free fluid or free air. ABDOMINAL WALL: Fascial defect at umbilical region measuring 1.5 cm containing fat???suggestive of a small fat-containing umbilical hernia. LYMPH NODES: No abnormally enlarged lymph nodes. REPRODUCTIVE ORGANS: Surgically absent uterus. Adnexal regions unremarkable. VASCULATURE: Aortoiliac vessels normal in calibre. No aneurysm. BONES: Degenerative thoracolumbar spondylosis. Grade I anterolisthesis of L3 over L4 secondary to facet arthropathy and pars defects. Loss of disc height at T10???T11 with endplate irregularities. No acute fracture. IMPRESSION: 1. Left renal calculus (0.5 cm) in the upper pole, without hydronephrosis or hydroureter. 2. Grade I anterolisthesis of L3 over L4 secondary to facet arthropathy and pars defects. 3. Degenerative thoracolumbar spondylosis, including loss of disc height at T10-T11 with endplate irregularities. No acute fracture. 4. Small fat-containing umbilical hernia, with fascial defect measuring 1.5 cm. 5. Sliding hiatus hernia (2.7 ??? 1.2 cm). 6. Uncomplicated colonic diverticulosis. 7. Surgically absent gallbladder and uterus. No intrahepatic or extrahepatic biliary dilatation. /[place] DICTATED BY: ESTEFANY BROWN MD DATE: 08/24/251621 ELECTRONICALLY SIGNED BY: ESTEFANY BROWN MD DATE: 08/24/251621 Assessment/Plan: ASSESSMENT: Suspected euglycemic DKA likely provoked by Farxiga use as outpatient, POA Acute kidney injury, POA Metabolic acidosis with compensated respiratory alkalosis, POA Acute on chronic iron deficiency anemia, POA Urinary Tract infection, POA Moderate hypokalemia, POA Rule out chronic GI bleeding, POA Prior history of gastric ulcer, POA History of hemorrhoids, POA Type 2 diabetes mellitus, POA Hypertension, POA Hyperlipidemia, POA Thrombocytosis, POA Discharge Instructions: Patient being discharged to [facility] Home Medications: Active Scripts Pantoprazole Sodium (Protonix) 40 Mg Tablet.dr, 40 MG PO DAILY, #90 TAB Prov:IAIN JOSEPH PAC 05/06/24 Reported Medications Olmesartan Medoxomil (Olmesartan Medoxomil) 5 Mg Tablet, 1 TAB PO HS 08/26/25 Methocarbamol (Methocarbamol) 500 Mg Tablet, 1 TAB PO TID for back pain for 30 Days, #90 TAB 0 Refills 08/24/25 Atorvastatin Calcium (Atorvastatin Calcium) 20 Mg Tablet, 20 MG PO HS, TAB 06/19/24 Dapagliflozin Propanediol (Farxiga) 10 Mg Tablet, 10 MG PO DAILY, TAB 06/19/24 Escitalopram Oxalate (Lexapro) 20 Mg Tablet, 20 MG PO DAILY, TAB 06/19/24 Gabapentin (Gabapentin) 100 Mg Capsule, 100 MG PO HS, CAP 05/04/24 Cholecalciferol (Vitamin D3) (D3-5000) 125 Mcg (5000 Unit) Capsule, 125 MCG PO DAILY, CAP 03/17/24 Discontinued Reported Medications Ergocalciferol (Vitamin D2) (Vitamin D2) 1,250 Mcg (98780 Unit) Capsule, 1250 MCG PO QWEEK, CAP 06/19/24 Metformin HCl (Metformin HCl) 1,000 Mg Tablet, 1000 MG PO BID, TAB 06/19/24 Ferrous Sulfate, Dried (Iron) 159 Mg (45 Mg Iron) Tablet.er, 60 MG PO BID, TAB 05/04/24 Sucralfate (Sucralfate) 1 Gram Tablet, 1 GM PO TIDAC, TAB 05/04/24 Ondansetron (Ondansetron Odt) 8 Mg Tab.rapdis, 8 MG PO DAILY PRN for NAUSEA, TAB 05/04/24 Docusate Sodium (Colace) 100 Mg Capsule, 100 MG PO DAILY, CAP 05/04/24 Olmesartan Medoxomil (Olmesartan Medoxomil) 5 Mg Tablet, 5 MG PO DAILY, TAB 03/17/24 Atorvastatin Calcium (Atorvastatin Calcium) 40 Mg Tablet, 20 MG PO DAILY, TAB 03/17/24 Escitalopram Oxalate (Escitalopram Oxalate) 20 Mg Tablet, 20 MG PO DAILY, TAB 03/17/24 Folic Acid (Folvite) 1 Mg Tab, 1 MG PO DAILY, TAB 03/17/24 Discontinued Scripts Sucralfate (Carafate) 1 Gram Tablet, 1 GM PO TID for 14 Days, #42 TAB 1 Refill Prov:SHIVANI ALVAREZ MD 06/27/24 Cefdinir (Cefdinir) 300 Mg Capsule, 300 MG PO BID for 5 Days, #10 CAP 0 Refills Prov:SHIVANI ALVAREZ MD 06/27/24 Time spent arranging discharge: 1-30 minutes ATTESTATION BY PHYSICIAN I have seen and examined the patient. I reviewed the documentation, medical decision making, and treatment plan as noted by the resident physician above. I agree with the findings and plan of care. KENJI SHI MD, SYED M MD Aug 28, 2025 16:21
--- NOTE | 2025-08-28 17:38 | NUR ---
DISCHARGE DISCHARGED TO [facility] FOR PHYSICAL THERAPY. PATIENT WILL TAKE MEDICATIONS PRESCRIBED AND FOLLOW MD RECOMMENDATIONS.
--- NOTE | 2025-08-28 22:09 | PN ---
Endocrinology progress note DOS: 08/28/25 subjective: glucose are stable. home regimen: farxiga 10 mg daily but did not take for 10 days. REVIEW OF SYSTEMS CONSTITUTIONAL: poor oral intake, malaise, fatigue NEUROLOGICAL: Denies headache, amaurosis fugax, motor weakness, sensory deficit, vertigo/spinning sensation, gait abnormalities, or tremors. ENT: No hearing loss, otalgia, otorrhea, rhinitis, rhinorrhea, hoarseness, or sore throat. CARDIOVASCULAR: Denies any exertional angina, dyspnea on exertion, orthopnea, paroxysmal nocturnal dyspnea, palpitations, life-threatening arrhythmias, claudication. PULMONARY: Denies any shortness of breath, cough, phlegm/sputum, hemoptysis, pleuritic chest pain. SLEEP: Denies morning headaches, daytime somnolence or napping. Denies difficulty falling asleep, staying asleep, waking from sleep. Denies knowledge of snoring. GASTROINTESTINAL: nausea and vomiting, some suprapubic discomfort GENITOURINARY: Denies frequency, urgency, nocturia, hematuria or incontinence (Storage/Irritative symptoms.) Low urinary stream, straining to void, urinary intermittency or hesitancy, splitting of the voiding stream, terminal dribbling. ENDOCRINOLOGIC: Denies polyuria, polydipsia, polyphagia or heat/cold intolerances. HEMATOLOGIC: Denies thrombophilia/previous clots, or coagulopathy/bleeding disorders. ONCOLOGIC: Denies personal history of malignancy. DERMATOLOGIC: Denies rashes or pruritus. PSYCHIATRIC: Denies any suicidal or homicidal ideation. Denies hallucinations. PAST MEDICAL HISTORY: Hypertension, hyperlipidemia, type 2 diabetes mellitus maintained on outpatient treatment with Farxiga, prior history of UTI, history of chronic iron deficiency anemia, prior history of hemorrhoids with gastric ulcer disease PAST SURGICAL HISTORY: Reports having had previous history of EGD in 06/2024, history of colonoscopy previously, history of cholecystectomy, history of hysterectomy, prior history of right shoulder rotator cuff surgery PAST SOCIAL HISTORY: Denies history of active smoking or alcohol consumption, resides alone at home, typically she is independent with ADLs and IADLs FAMILY HISTORY: Denies pertinent family history Allergies: No known drug allergies Medications: Farxiga 10 mg daily, losartan 50 mg twice daily, patient has been started recently on Bactrim for treatment of urinary tract infection Coded Allergies: No Known Drug Allergies (Verified Allergy, Unknown, 06/18/24) DIAGNOSTICS / RADIOLOGY: SERVICE REASON: weakness x 1 day ORDERING PHYSICIAN: EFRAIN STACY MD PROCEDURE: HEAD WO - CT HEAD/BRAIN W/O CONTRAST CT OF THE BRAIN WITHOUT CONTRAST CLINICAL INDICATION: Weakness for 1 day TECHNIQUE: Multiple contiguous axial CT images were obtained through the brain without the administration of intravenous contrast. Coronal and sagittal reconstructions were also obtained. COMPARISON: None available FINDINGS: The ventricular system and cortical sulci demonstrate a normal size and configuration for the patients age. There is patchy hypoattenuation of the periventricular matter bilaterally consistent with microangiopathic ischemic disease. There are no extra-axial collections, mass effect, or midline shift. The basal cisterns are patent. The pimentel-white matter differentiation is preserved. The midline structures and cervicomedullary junction are unremarkable. There is no evidence of acute intracranial hemorrhage or areas of acute territorial infarction. Vascular calcification is present. The calvarium is unremarkable in appearance. No suspicious lytic or sclerotic osseous lesions are seen. The visualized portions of the sinuses are well aerated. The mastoid air cells are well pneumatized and well aerated. The visualized orbital structures are unremarkable. IMPRESSION: 1. No CT evidence of an acute intracranial process. 2. 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 /[place] DICTATED BY: MARCELLE OVIEDO MD DATE: 08/24/25 1526 ELECTRONICALLY SIGNED ASSESSMENT: euglycemic DKA was suspected by Farxiga use as outpatient, POA Home diabetic regimen: off farxiga 10 mg for 2 weeks Hba1c 7.2% my suspicion is low for euglycemic dka as she is off farxiga for 10 days. reports UTI due to farxiga. Type 2 diabetes mellitus, POA Acute kidney injury, POA improving Metabolic acidosis with compensated respiratory alkalosis, POA Acute on chronic iron deficiency anemia, POA Urinary Tract infection, POA Moderate hypokalemia, POA Rule out chronic GI bleeding, POA Prior history of gastric ulcer, POA History of hemorrhoids, POA Hypertension, POA Hyperlipidemia, POA Thrombocytosis, POA Urinary tract infection, POA PLAN: continue Lantus 10 units daily and adjust for fasting glucose. continue low dose sliding scale insulin. Monitor glucose q x 6 hourly. Continue carb consistent diet. Keep glucose less than 180 mg/dl. Patient was recommended to stop farxiga due to recurrent UTI but refused. she wants to follow up with pcp for diabetic meds change. Vitals/Labs Vital Signs Date Time Temp Pulse Resp B/P (MAP) Pulse Ox O2 Delivery O2 Flow Rate FiO2 08/28/25 16:00 97.7 88 20 129/79 98 Room Air 08/28/25 08:48 0 21 Laboratory Tests 08/28/25 04:17 Medications Current Medications Sodium Chloride 1,000 ml @ 0 mls/hr ONCE ONCE IV Last administered on 08/24/25at 12:29; Start 08/24/25 at 12:00; Stop 08/24/25 at 12:01; Status DC Pantoprazole Sodium 40 mg Q12H IVP Last administered on 08/28/25at 13:08; Start 08/24/25 at 13:30; Stop 08/28/25 at 17:43; Status DC Thiamine HCl 100 mg Q24H IVP Last administered on 08/28/25at 13:09; Start 08/24/25 at 13:30; Stop 08/28/25 at 17:43; Status DC Vitamin B Complex/ Vit C/Folic Acid 1 cap DAILY PO; Start 08/25/25 at 09:00; Stop 08/25/25 at 08:19; Status DC Ceftriaxone Sodium 1 gm Q12H IVPB Last administered on 08/28/25at 13:09; Start 08/24/25 at 13:30; Stop 08/28/25 at 17:43; Status DC Sodium Chloride 1,000 ml @ 75 mls/hr [id number] IV Last administered on 08/24/25at 13:59; Start 08/24/25 at 13:30; Stop 08/24/25 at 14:11; Status DC Sodium Chloride 1,000 ml @ 75 mls/hr [id number] IV; Start 08/24/25 at 13:30; Stop 08/24/25 at 13:34; Status DC Albuterol 1 udvial Q6H PRN IH; Start 08/24/25 at 14:00; Stop 08/28/25 at 17:43; Status DC Potassium Chloride 100 ml @ 100 mls/hr AD PRN IV Last administered on 08/27/25at 08:00; Start 08/24/25 at 14:00; Stop 08/28/25 at 17:43; Status DC Potassium Chloride 20 meq AD PRN PO Last administered on 08/25/25at 06:18; Start 08/24/25 at 14:00; Stop 08/28/25 at 17:43; Status DC Potassium Chloride 20 meq AD PRN PO Last administered on 08/28/25at 13:09; Start 08/24/25 at 14:00; Stop 08/28/25 at 17:43; Status DC Magnesium Sulfate 50 ml @ 0 mls/hr PROTOCOL IV Last administered on 08/27/25at 13:57; Start 08/24/25 at 14:00; Stop 08/28/25 at 17:43; Status DC Sodium Chloride 1,000 ml @ 200 mls/hr PROTOCOL IV; Start 08/24/25 at 14:00; Stop 08/24/25 at 20:50; Status DC Potassium Chloride/Dextrose/ Sod Cl 1,000 ml @ 0 mls/hr AD IV Last administered on 08/24/25at 16:10; Start 08/24/25 at 14:00; Stop 08/24/25 at 20:50; Status DC Potassium Chloride 20 meq/ Sodium Chloride 1,010 ml @ 0 mls/hr PROTOCOL IV; Start 08/24/25 at 14:00; Stop 08/24/25 at 20:50; Status DC Potassium Chloride 100 ml @ 0 mls/hr PROTOCOL PRN IV; Start 08/24/25 at 14:00; Stop 08/24/25 at 20:50; Status DC Insulin Human Regular 100 unit/ Sodium Chloride 101 ml @ 0 mls/hr PROTOCOL IV Last administered on 08/24/25at 17:32; Start 08/24/25 at 14:00; Stop 08/24/25 at 20:50; Status DC Dextrose/Sodium Chloride 1,000 ml @ 0 mls/hr AD IV; Start 08/24/25 at 14:00; Stop 08/24/25 at 20:50; Status DC Iron Sucrose 300 mg/Sodium Chloride 250 ml @ 83 mls/hr DAILY IV Last administered on 08/27/25at 13:57; Start 08/25/25 at 09:00; Stop 08/27/25 at 10:00; Status DC Lactated Ringer's 1,000 ml @ 150 mls/hr Q6H40M IV Last administered on 08/27/25at 16:06; Start 08/24/25 at 21:00; Stop 08/27/25 at 19:52; Status DC Insulin Glargine 10 units ONCE ONCE SQ Last administered on 08/24/25at 21:05; Start 08/24/25 at 21:00; Stop 08/24/25 at 21:01; Status DC Insulin Human Regular INSULIN SLIDING SCAL... ACHS SQ; Start 08/25/25 at 07:30; Stop 08/25/25 at 21:53; Status DC Insulin Glargine 10 units BID@0730,2100 SQ Last administered on 08/28/25at 06:01; Start 08/25/25 at 07:30; Stop 08/28/25 at 17:43; Status DC Phenazopyridine HCl 200 mg Q8H PRN PO; Start 08/24/25 at 22:00; Stop 08/24/25 at 22:05; Status DC Vitamin B Complex/ Vit C/Folic Acid 1 cap DAILY PO Last administered on 08/28/25at 08:48; Start 08/25/25 at 09:00; Stop 08/28/25 at 17:43; Status DC Insulin Human Regular INSULIN SLIDING SCAL... ACHS SQ; Start 08/26/25 at 07:30; Stop 08/28/25 at 17:43; Status DC Atorvastatin Calcium 20 mg HS PO Last administered on 08/27/25at 19:55; Start 08/26/25 at 21:00; Stop 08/28/25 at 17:43; Status DC Gabapentin 100 mg HS PO Last administered on 08/27/25at 19:55; Start 08/26/25 at 21:00; Stop 08/28/25 at 17:43; Status DC Home Med (Cholecalciferol (Vitamin D3) (D3-5000) ... DAILY PO; Start 08/27/25 at 09:00; Stop 08/28/25 at 17:43; Status DC Citalopram Hydrobromide 20 mg DAILY PO Last administered on 08/28/25at 08:48; Start 08/27/25 at 09:00; Stop 08/28/25 at 17:43; Status DC Hydralazine HCl 10 mg Q6H PRN IV Last administered on 08/27/25at 01:17; Start 08/27/25 at 01:30; Stop 08/28/25 at 17:43; Status DC Home Med Olmesartan 5MG 1 TAB HS PO; Start 08/27/25 at 21:00; Stop 08/28/25 at 17:43; Status DC Ketamine HCl 50 mg STK-MED ONCE .ROUTE; Start 08/27/25 at 08:41; Stop 08/27/25 at 08:41; Status DC Propofol 200 mg STK-MED ONCE IV; Start 08/27/25 at 08:41; Stop 08/27/25 at 08:41; Status DC Lidocaine HCl 100 mg STK-MED ONCE .ROUTE; Start 08/27/25 at 08:41; Stop 08/27/25 at 08:41; Status DC Magnesium Sulfate 50 ml @ 0 mls/hr PROTOCOL PRN IV; Start 08/27/25 at 13:30; Stop 08/27/25 at 13:03; Status DC MARCO ANTONIO KAUR MD Aug 28, 2025 22:06
== END 2025-08-28 17:30 | DRG 682 ==
LOC: EDH 10:49 → EDHIP 13:22 → 2CH 19:09 → 3DH 08-25 10:42
PROVIDERS: ADMIT Internal Medicine; ATTEND Internal Medicine
PROC: 30233N1 Transfusion of Nonautologous Red Blood Cells into Peripheral Vein, Percutaneous Approach (ICD-10-PCS; 2025-08-24)
PROC: 0DJ08ZZ Inspection of Upper Intestinal Tract, Via Natural or Artificial Opening Endoscopic (ICD-10-PCS; principal; 2025-08-27)
DX: N17.9 Acute kidney failure, unspecified (principal); E11.10 Type 2 diabetes mellitus with ketoacidosis without coma; K57.31 Diverticulosis of large intestine without perforation or abscess with bleeding; D62 Acute posthemorrhagic anemia; E87.3 Alkalosis; N30.00 Acute cystitis without hematuria; E11.65 Type 2 diabetes mellitus with hyperglycemia; I10 Essential (primary) hypertension; D50.9 Iron deficiency anemia, unspecified; E87.6 Hypokalemia; E78.5 Hyperlipidemia, unspecified; D75.839 Thrombocytosis, unspecified; N20.0 Calculus of kidney; K42.9 Umbilical hernia without obstruction or gangrene; K64.9 Unspecified hemorrhoids; E86.0 Dehydration; K74.60 Unspecified cirrhosis of liver; M43.16 Spondylolisthesis, lumbar region; M47.815 Spondylosis without myelopathy or radiculopathy, thoracolumbar region; Z79.4 Long term (current) use of insulin; Z87.440 Personal history of urinary (tract) infections; Z90.49 Acquired absence of other specified parts of digestive tract; Z90.710 Acquired absence of both cervix and uterus; T38.3X5A Adverse effect of insulin and oral hypoglycemic [antidiabetic] drugs, initial encounter
CPT/HCPCS: 36415; 36600; 43235; 70450; 71045; 74176; 80048; 80051; 80053; 80076; 81001; 82010; 82270; 82435; 82550; 82570; 82728; 82803; 82947; 82948; 83036; 83540; 83550; 83605; 83615; 83735; 83935; 84100; 84132; 84145; 84295; 84443; 84484; 85014; 85018; 85025; 85610; 85651; 85730; 86140; 86850; 86900; 86901; 86923; 87086; 93005; 94664; 99285; A4606; G0378; J0360; J0696; J1756; J1815; J2003; J2470; J2704; J3411; J3475; J3480; J7030; J7050; P9016; A4215; A4222; A4223; A4620; J3490

== ENCOUNTER 2025-10-04 22:28 | Emergency (ER) | payer MEDICARE ==
[~2025-10-04] VITALS: Ht 144.8 cm; Wt 68.5 kg
[~2025-10-04 22:28] MED LIST changes: -ATOR40TA71 PO; -CEFD300C3 PO; -DOCU-116 PO; -ERGO500093 PO; -ESCI20TA38 PO; -FERR159T2 PO; -FOLI1 PO; -METF-446 PO; +METH-811 PO; -ONDA-245 PO; -SUCR1TAB2 PO; -SUCR1TAB28 PO
--- NOTE | 2025-10-04 22:40 | ERN ---
ED Note History of Present Illness Stated Complaint: C/O FREQUENT URINATION WITH LOWER ABD PAIN Chief Complaint: Abdominal Pain Time Seen by MD: 22:30 Dictation: This is a 65-year-old female brought by her daughter with complaints of increased frequency of urination and suprapubic abdominal pain off and on. For many weeks. She was admitted to the hospital for a UTI. The daughter stated that when she has to go to the bathroom she has the urge to urinate. She denied any leakage of urine with coughing or sneezing. While she was in the ER she went at least 8 times small amounts. Patient's daughter also stated that she complains of vaginal dryness. She denied any fevers chills or rigors no hematuria or pyuria. She gives a history of hysterectomy. No vaginal discharge or bleeding. No spotting. Temperature 98.4 pulse 69 respirations 20 blood pressure 186/64 with a pulse oximetry of 97% on room air Her chronic medical problems include chronic anemia, history of iron deficiency, prior history of GI bleed, hemorrhoids, hypertension, type 2 diabetes mellitus maintained on outpatient treatment with SGLT2 inhibitor with Farxiga, history of gastric ulcer Allergies: Coded Allergies: No Known Drug Allergies (Verified Allergy, Unknown, 06/18/24) Home Meds Active Scripts Oxybutynin Chloride (Ditropan) 5 Mg Tab, 1 TAB PO BID for urinary discomfort for 30 Days, #60 TAB 0 Refills Prov:BREE WHEAT MD 10/05/25 Nitrofurantoin Macrocrystal (Nitrofurantoin) 100 Mg Capsule, 1 CAP PO BID for 5 Days, #10 CAP 0 Refills Prov:BREE WHEAT MD 10/05/25 Pantoprazole Sodium (Protonix) 40 Mg Tablet.dr, 40 MG PO DAILY, #90 TAB Prov:AIIN JOSEPH PAC 05/06/24 Reported Medications Olmesartan Medoxomil (Olmesartan Medoxomil) 5 Mg Tablet, 1 TAB PO HS 08/26/25 Methocarbamol (Methocarbamol) 500 Mg Tablet, 1 TAB PO TID for back pain for 30 Days, #90 TAB 0 Refills 08/24/25 Atorvastatin Calcium (Atorvastatin Calcium) 20 Mg Tablet, 20 MG PO HS, TAB 06/19/24 Dapagliflozin Propanediol (Farxiga) 10 Mg Tablet, 10 MG PO DAILY, TAB 06/19/24 Escitalopram Oxalate (Lexapro) 20 Mg Tablet, 20 MG PO DAILY, TAB 06/19/24 Gabapentin (Gabapentin) 100 Mg Capsule, 100 MG PO HS, CAP 05/04/24 Cholecalciferol (Vitamin D3) (D3-5000) 125 Mcg (5000 Unit) Capsule, 125 MCG PO DAILY, CAP 03/17/24 Past Medical History Past Medical History: Diabetes-Type II, High Cholesterol, Hypertension Surgical History: Hysterectomy, Cholecystectomy Surgical History Other: RIGHT SHOULDER Family History: Negative Social History: Negative History: Not Applicable RN Note Reviewed/Agreed w/PFSH: Yes Review of System Dictation Constitutional: Negative for fever,chills, and weight loss Eyes: Negative for injury, pain,redness, and discharge ENT: Negative for injury,pain or swelling Cardiovascular: Negative for chest pain, palpitations, and edema Respiratory: Negative for shortness of breath, cough, and wheezing, Abdomen/GI: Positive for lower abdominal pain, denies nausea, vomiting, diarrhea, and history of constipation Back: Negative for injury and pain : Negative for injury, bleeding and discharge, increased frequency and urge to urinate every few minutes MS/Extremity: Negative for injury and deformity Skin: Negative for rash, and discoloration Neuro: Negative for headache, weakness, numbness, tingling, and seizure Psych: Negative for suicide ideation, homicidal ideation, and hallucinations Initial Vital Sign VS Vital Signs Date Time Temp Pulse Resp B/P (MAP) Pulse Ox O2 Delivery O2 Flow Rate FiO2 10/04/25 22:30 98.4 69 20 186/64 97 Room Air 10/04/25 23:15 0 21 Physical Exam Dictation General: awake, alert, NAD . By evaluation patient went to the restroom at least 8 times Head/Face: Normocephalic, atraumatic Eyes: PERRL, EOMI, vision at baseline ENT: oral cavity clear, TMs clear, no signs of infection Neck: Trachea midline, supple, no nuchal rigidity Cardiovascular: RRR, normal S1/S2, No MRGs, no JVD Respiratory: CTAB, no respiratory distress, No rales or wheezes Abdomen: Soft, overall quite benign minimal tenderness in the hypogastric area, non-distended, normal bowel sounds, no guarding or rebound. Skin: Warm, dry, normal turgor, no rash MS/Extremity: Pulses equal, no cyanosis, neurovascular intact, FROM Neuro: COAx4, GCS 15, strength 5/5, CN 2-12 intact, normal cerebellar exam, normal gait, Psych: Normal behavior, mood, and affect normal Extremities-trace edema without any palpable cords, Homans sign is negative Results (Laboratory/Radiology) Laboratory/Radiology Laboratory Tests Test 10/04/25 22:32 10/04/25 23:02 Urine Color COLORLESS (YELLOW) Urine Appearance CLEAR (CLEAR) Urine pH 5.5 (5.0-8.0) Urine Specific [place] 1.003 (1.001-1.031) Urine Protein NEGATIVE mg/dL (NEGATIVE) Urine Glucose (UA) 500 mg/dL (NEGATIVE) H Urine Ketones NEGATIVE mg/dL (NEGATIVE) Urine Occult Blood MODERATE (NEGATIVE) H Urine Nitrate NEGATIVE (NEGATIVE) Urine Bilirubin NEGATIVE mg/dL (NEGATIVE) Urine Urobilinogen 0.2 mg/dL (0.2-1.0) Urine Leukocyte Esterase 25 Juvencio/uL (NEGATIVE) H Urine RBC 0-1 /HPF (0-1) Urine WBC 2-5 /HPF (0-1) H Urine Bacteria Rare /HPF (None Seen) White Blood Count 8.3 K/uL (4.8-10.8) Red Blood Count 4.76 MIL/uL (4.00-5.50) Hemoglobin 11.8 g/dL (12.0-16.0) L Hematocrit 38.7 % (36-48) Mean Corpuscular Volume 81.3 fL (79-99) Mean Corpuscular Hemoglobin 24.8 pg (27.0-33.0) L Mean Corpuscular Hemoglobin Concent 30.5 g/dL (32.0-36.0) L Red Cell Distribution Width 26.0 % (11.0-15.5) H Platelet Count 373 K/uL (130-400) Mean Platelet Volume 9.0 fL (7.5-10.5) Immature Granulocyte % (Auto) 0.6 % (0-1) Neutrophils (%) (Auto) 52.3 % (40.0-77.0) Lymphocytes (%) (Auto) 37.8 % (21.0-51.0) Monocytes (%) (Auto) 6.6 % (3.0-13.0) Eosinophils (%) (Auto) 1.7 % (0.0-8.0) Basophils (%) (Auto) 1.0 % (0.0-5.0) Neutrophils # (Auto) 4.3 K/uL (1.8-7.7) Lymphocytes # (Auto) 3.1 K/uL (1.0-4.8) Monocytes # (Auto) 0.6 K/uL (0.1-1.0) Eosinophils # (Auto) 0.14 K/uL (0.00-0.70) Basophils # (Auto) 0.08 K/uL (0.00-0.20) Absolute Immature Granulocyte (auto 0.05 K/uL (0-1) Nucleated Red Blood Cells 0.0 % (0.0-0.19) Red Blood Cell Morphology See comments Sodium Level 132 mmol/L (136-145) L Potassium Level 3.8 mmol/L (3.5-5.1) Chloride Level 101 mmol/L (101-111) Carbon Dioxide Level 21 mmol/L (21-32) Blood Urea Nitrogen 22 mg/dL (7-18) H Creatinine 0.8 mg/dL (0.5-1.0) Glomerular Filtration Rate Calc 82 mL/min (>90) Random Glucose 108 mg/dL (70-105) H Total Calcium 9.3 mg/dL (8.5-10.1) Labs Reviewed?: Yes ED Course ED Course Orders Procedure Category Date Status Time Cbc With Differential LAB 10/04/25 Complete 22:37 Basic Metabolic Panel LAB 10/04/25 Complete 22:37 Urinalysis Profile LAB 10/04/25 Complete 22:37 Ceftriaxone 1g Vial PHA 10/05/25 Complete (Rocephine 1g Inj) 00:00 Oxybutynin Chloride PHA 10/05/25 Complete (Ditropan Xl) 00:30 Current Medications Medications (Trade) Dose Ordered Sig/Sylvester Route PRN Reason Start Time Stop Time Status Last Admin Dose Admin Ceftriaxone Sodium (ROCEphine 1G INJ) 1 gm ONCE ONCE IM 10/05/25 00:00 10/05/25 00:29 DC 10/05/25 00:35 Oxybutynin Chloride (ditROPAN XL) 10 mg ONCE ONCE PO 10/05/25 00:30 10/05/25 00:31 DC 10/05/25 00:35 Vital Signs Date Time Temp Pulse Resp B/P (MAP) Pulse Ox O2 Delivery O2 Flow Rate FiO2 10/05/25 00:16 59 18 146/62 100 Room Air* 0 21 10/04/25 23:15 98.4 57 18 179/56 96 Room Air* 0 21 10/04/25 22:30 98.4 69 20 186/64 97 Room Air We will perform diagnostic labs, and administer medications according to the patient's complaint. Once the results are available, will review and personally interpreted the labs to rule out any acute life-threatening emergency the trach require immediate intervention and treatment. I will then re-evaluate the patient after treatment and diagnostic exams have return to determine whether the patient requires any further testing, can safely be discharged home or need further admission to hospital for additional treatment and evaluation. Medical Decision Making MDM Differential diagnosis: Cystitis, incontinence, estrogen deficiency, hyperglycemia with osmotic diuresis This is a 65-year-old female brought by her daughter with complaints of increased frequency of urination and suprapubic abdominal pain off and on. For many weeks. She was admitted to the hospital for a UTI. The daughter stated that when she has to go to the bathroom she has the urge to urinate. She denied any leakage of urine with coughing or sneezing. While she was in the ER she went at least 8 times small amounts. Patient's daughter also stated that she complains of vaginal dryness. She denied any fevers chills or rigors no hematuria or pyuria. She gives a history of hysterectomy. No vaginal discharge or bleeding. No spotting. Temperature 98.4 pulse 69 respirations 20 blood pressure 186/64 with a pulse oximetry of 97% on room air Her chronic medical problems include chronic anemia, history of iron deficiency, prior history of GI bleed, hemorrhoids, hypertension, type 2 diabetes mellitus maintained on outpatient treatment with SGLT2 inhibitor with Farxiga, history of gastric ulcer 11:51 p.m. labs reviewed CBC showed a white count of 8.3 hemoglobin of 11.8. BNP 7 is significant for a sodium of 132 BUN and creatinine are 22 and 0.8. Urinalysis showed moderate occult blood leuko esterase was positive WBCs were only 2-5. Long discussion with the patient and her daughter and from the presentation it almost sounds like perhaps a component of urge incontinence. It is reasonable to treat her for a UTI and if repeat urinalysis in future shows hematuria she may need urologist referral for a cystoscopy. Patient and daughter verbalized full understanding Rationale: Tests considered and ordered secondary to shared decision making include: Blood work and urinalysis Previous outside records reviewed: Old ER visits. Risk of complication and/or morbidity or mortality of patient management: None Medications-Per medication reconciliation Need for hospitalization: Patient does not meet criteria for hospitalization. Need for emergency major/minor surgery: No There are no social concerns with this patient. Prescription drug management Prescriptions will include symptomatic care Patient's prior external medical records from other ER visits were reviewed by me as indicated. Prior testing and results from previous visits were reviewed. Prior tests were taken into account with medical decision making and resource utilization, independent historian/historians were used to obtain complete medical history. I independently interpreted the test that were performed, results were reviewed by me and considered findings on radiology if ordered. Medical management and examination interpretation discussions were had by me with other qualified healthcare professionals as indicated for the patient's care. Problem List Problem List: (1) Urge incontinence of urine (2) Recurrent UTI (3) Diabetes mellitus DX & DISP Disposition: Discharge Departure Impression: Primary Impression: Urge incontinence of urine Additional Impressions: Recurrent UTI, Diabetes mellitus Condition: Stable Scripts Oxybutynin Chloride (Ditropan) 5 Mg Tab 1 TAB PO BID for urinary discomfort for 30 Days, #60 TAB 0 Refills Prov: BREE WHEAT MD 10/05/25 Nitrofurantoin Macrocrystal (Nitrofurantoin) 100 Mg Capsule 1 CAP PO BID for 5 Days, #10 CAP 0 Refills Prov: BREE WHEAT MD 10/05/25 Additional Instructions: Patient and the caregiver have been informed of all the diagnostic tests and the imaging conducted during the today's visit to the emergency room and has verbalized understanding of the results I have personally reviewed and interpreted all diagnostic exams performed here in the ER today as well as the vital signs documented by the nursing staff. The patient is now being discharged to home and should follow up with the primary care physician or the specialist as directed by the ER staff. Follow-up with primary care provider in 1 to 2 days. Take medications as directed here in the emergency room. Okay to continue home medications unless otherwise discussed during your visit in the emergency room today. Return to your nearest emergency room if symptoms worsen or if there is no improvement. Call 911 if you need immediate assistance. Take Tylenol or Motrin [id number] as needed and if no contraindications are present. Increase oral hydration. A wound culture or urine culture was ordered here in the emergency room department please follow-up with primary care provider and advise them to get repeat ports from our facility. If you had any Lalito wrap/splints that were applied here, please do not remove them until you see your primary care or specialty. I have instructed the patient and her daughter to follow up with the [facility] and be evaluated by assistant activities director for incontinence and perhaps even hormonal deficiency. In the interim, we will give a trial of Ditropan along with a an antibiotic Referrals: LESVIA ROLDAN MD (PCP) BREE WHEAT MD Oct 04, 2025 22:40
[2025-10-04 23:12] LABS: APPEARANCE,URINE CLEAR (CLEAR); GLUCOSE, URINE (UA) 500 mg/dL (NEGATIVE); LEUKOCYTE ESTERASE ,URINE 25 Leu/uL (NEGATIVE); NITRATE,URINE NEGATIVE (NEGATIVE); OCCULT BLOOD,URINE MODERATE (NEGATIVE)
[2025-10-04 23:12] LABS: IMMATURE GRANULOCYTE ABSOLUTE 0.05 K/uL (0-1); NUCLEATED RED BLOOD CELLS 0.0 % (0.0-0.19); PLATELET COUNT (AUTO) 373 K/uL (130-400); RED BLOOD CELL COUNT(AUTO) 4.76 MIL/uL (4.00-5.50); RED CELL DISTRIBUTION WIDTH 26.0 % (11.0-15.5); WHITE BLOOD COUNT (AUTO) 8.3 K/uL (4.8-10.8)
[2025-10-04 23:15] LABS: ADD UA MICROSCOPIC YES
[2025-10-04 23:22] LABS: CREATININE 0.8 mg/dL (0.5-1.0); GLOMERULAR FILTR. RATE CALC 82.0 mL/min (>90); GLUCOSE,RANDOM 108.0 mg/dL (70-105); SODIUM SERUM 132.0 mmol/L (136-145); UREA NITROGEN, BLOOD 22.0 mg/dL (7-18)
[2025-10-05] MEDS ORDERED: NITR100C PO (00:29)
[2025-10-05] MEDS ORDERED: OXYB-61 PO (00:29)
[2025-10-05 01:46] VITALS: BP 152/72; PULSE 60; RESP 18; TEMP 98.2; O2SAT 98
== END 2025-10-05 01:47 | disposition home or self-care (01) ==
LOC: EDH 22:28
DX: N39.41 Urge incontinence (principal); N39.0 Urinary tract infection, site not specified; E11.9 Type 2 diabetes mellitus without complications; E78.00 Pure hypercholesterolemia, unspecified; I10 Essential (primary) hypertension; Z79.84 Long term (current) use of oral hypoglycemic drugs; Z79.899 Other long term (current) drug therapy; Z87.440 Personal history of urinary (tract) infections; Z90.49 Acquired absence of other specified parts of digestive tract; Z90.710 Acquired absence of both cervix and uterus
CPT/HCPCS: 99283; 80048; 85025; 81001; 36415; 96372; J0696